=== PATIENT | female | born 1955 | race Caucasian/White ===

== ENCOUNTER 2017-01-18 14:02 | Inpatient (IN) | payer MEDICARE ==
[~2017-01-18] VITALS: Ht 167.6 cm; Wt 76.9 kg
[~2017-01-18 14:02] MED LIST: CLON0.1T PO; CYAN500L3 PO; DOCU100C PO; ESOM40CA54 PO; FEXO180T94 PO; GINS250C2 PO; HYDR-4011 PO; MELO-267 PO; OXYB15TA PO; PRAM0.129 PO; VITA400C25 PO
--- NOTE | 2017-01-18 14:53 | NUR ---
ADMISSION NOTE PATIENT TRANSPORTED TO IRU UNIT VIA WHEEL CHAIR WITH COREMAKER HELPER. PATIENT ARRIVED WITH BACK BRACE AND POLAR PACK. PATIENT VITALS TAKEN, CONSENTS SIGNED, PATIENT ORIENTED TO UNIT. ARMBANDS FROM PREVIOUS FACILITY REMOVED, IRU ARMBAND PLACED.
--- OUTSIDE RECORDS SUMMARY | 2017-01-18 15:04 | XMS REPORT | Continuity of Care Document ---
Author Author Dana Cortez Address Unknown Phone Unavailable Care Team Providers Care Stacker And Sorter Operator Name Role Phone [employer] Unavailable Unavailable Problems Problem Status Onset Date Classification Date Reported Comments Source Chronic pain syndrome (disorder) Active Problem 2013 [facility] Degeneration of lumbar intervertebral disc (disorder) Active Problem 06/30/2014 [facility] Hypertensive disorder, systemic arterial (disorder) Active Problem 06/30/2014 [facility] Fibromyositis (disorder) Active Problem 06/30/2014 [facility] History of - gastrointestinal disease (context-dependent category) Active Problem 06/30/2014 [facility] History of - hormone replacement (HRT) (context-dependent category) Active Problem 06/30/2014 [facility] Hiatal hernia (disorder) Active Problem 06/30/2014 [facility] Mixed hyperlipidemia (disorder) Active Problem 2013 [facility] Hypersomnia with sleep apnea (disorder) Active Problem [facility] 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 [facility] Persistent insomnia (disorder) Active Problem 06/30/2014 [facility] Restless legs (disorder) Active Problem 06/30/2014 [facility] Reactive depression (situational) (finding) Active Problem 06/30/2014 [facility] Medications Medication Details Route Status Patient Instructions Ordering Provider Order Date Source Valeria PO Active [facility] [place] 325 mg-10 mg oral tablet tab, PO, BID Active [facility] MS Contin 30 mg oral tablet, extended release =30 mg, 1 tab, PO, Q12H, 0 Refill(s) Active [facility] Vitamin D3 oral tablet International_Unit, tab, PO, Daily Active [facility] Slo-Niacin 500 mg oral tablet, extended release =500 mg, 1 tab, PO, QHS, # 30 tab Active [facility] clonazepam 0.5 mg oral tablet =0.5 mg, 1 tab, PO, BID , # 60 tab, 5 Refill(s) Active [facility] omeprazole 40 mg oral enteric coated capsule =40 mg, 1 cap, PO, Daily, # 30 cap Active [facility] meloxicam 15 mg oral tablet =15 mg, 1 tab, PO, Daily, # 30 tab Active [facility] Cymbalta 60 mg oral enteric coated capsule =60 mg, 1 cap, PO, Daily, (do not crush or chew), # 30 cap
</br>(do not crush or chew) Active [facility] Covaryx HS tab, PO, Daily Active [facility] Flexeril 10 mg oral tablet mg, tab, PO, Daily Active [facility] Mirapex 0.125 mg oral tablet =0.125 mg, 1 tab, PO, QHS , # 30 tab, 11 Refill(s), Pharmacy [facility], tab Active [facility] Allergies, Adverse Reactions, Alerts Immunizations Results Vital Signs Vital Sign Value Date Comments Source Cuff Size Adult Large Cuff
</br>(06/29/2014 11:09: 00) <sup> </sup> 06/29/2014 [facility] BP Site Right Arm
</br>(06/29/2014 11:09:00) <sup > </sup> 06/29/2014 [facility] Resp. Rate 16 BRMIN 2013 [facility] Heart Rate 64 bpm 06/29/2014 [facility] Systolic BP <content ID='[id number]'>134</content >/<content ID='[id number]'>80</content> mmHg 06/29 [facility] Encounters Procedures Plan of Care Social History Assessment and Plan Family History Value Date Source Advance Directives Order Name Results Value Date Source
--- OUTSIDE RECORDS SUMMARY | 2017-01-18 15:04 | XMS REPORT ---
Author Author Darling Harvey Organization [facility] Address [address] [place], [place] [address] Care Team Providers Care Chainstitch Tunnel Elastic Operator Name Role Phone Candice Darling Unavailable [phone] PROBLEMS Type Condition ICD9-CM Code DAH20-EP Code Onset Dates Condition Status SNOMED Code Problem Unspecified urinary incontinence R32 Active 462176847 Problem Personal history of other diseases of the musculoskeletal system and connective tissue Z87.39 Active 049518638 Problem Other chronic pain G89.29 Active 18826092 Assessment Encounter for consultation Z71.9 Sep, Active 797192398 Assessment Trauma and stressor-related disorder F43.9 Sep, Active 13113875 Problem Gastro-esophageal reflux disease with esophagitis K21.0 Active 013181318 Problem Anxiety disorder, unspecified F41.9 Active 476070261 Problem Trauma and stressor-related disorder F43.9 Active 86952600 Problem Other cervical disc degeneration, high cervical region M50.31 Active 03022532 Problem Other intervertebral disc degeneration, lumbosacral region M51.37 Active 22412005 Problem Major depressive disorder, single episode, severe with anxious distress F32.2 Active 067385234717 Problem Gait instability R26.81 Active 73986025 ALLERGIES Unknown Allergies SOCIAL HISTORY No smoking Hx information available PLAN OF CARE VITAL SIGNS MEDICATIONS Medication Instructions Dosage Frequency Start Date End Date Duration Status [place] 10-325 MG Orally every 6 hrs 1 tablet as needed A.M 0.5 at noon 1 tablet PM 6h Mar, Active Oxybutynin Chloride ER 15 MG Orally once a day 1 tab 24h Active Clonidine HCl 0.1 MG Orally Once a day 1 tablet at bedtime 24h Aug, 30 day(s) Active Omeprazole 20 MG Orally Once a day 1 capsule 24h Aug, 30 day(s ) Active Meloxicam 15 MG Orally Once a day 1 tablet 24h Jan, Jan, Active Trazodone HCl 50 MG Orally Once a day Half tablet at bedtime 24h Active RESULTS No Results PROCEDURES No Known procedures IMMUNIZATIONS No Known Immunizations
--- OUTSIDE RECORDS SUMMARY | 2017-01-18 15:05 | XMS REPORT | Continuity of Care Document ---
Author Author [facility] Organization [facility] Address Unknown Phone Unavailable Allergies Active Description Code Type Severity Reaction Onset Reported/Identified Relationship to Patient Clinical Status Yes LACTOSE 98824 3 INDIGESTION 12/24/2016 Medications Medication Packaging Start Date Stop Date Route Dosage Sig HYDROcodone/ACETAMINOPHEN 10-325 MG TABLET TAB 11/28/201611/28 PO ONCE * DONT RECONCILE--CHANGE PENDING EA 12/24/2016 01/16/2017 PO PRN SODIUM CHLORIDE 0.9% 10ML FLUSH SYRINGE SYR 01/16/20172017 IVP BID&0900,2100 DOCUSATE SODIUM 100MG CAPSULE CAP 01/16/2017 01/16/2018 PO BID& 0900,2100 LACTATED RINGERS 1000 ML IV SOLN BAG 01/16/2017 01/17/2017 IV PRE-OP ceFAZolin 1GM VIAL VL 01/16/2017 01/16/2017 IV PRE-OP fentaNYL 100 MCG/2ML INJ AMP 01/16/2017 01/16/2017 IV PRE-OP MIDAZOLAM 2MG/2ML INJ VL 01/16/2017 01/16/2017 IV PRE-OP fentaNYL 250 MCG/5ML INJ AMP 01/16/2017 01/16/2017 IV ONCE * Ready to Reconcile EA 01/16/2017 01/16/2017 PO ASDIR THROMBIN 5000 UNIT VIAL VL 01/16/2017 01/16/2017 TOP ONCE BACITRACIN 50,000 UNITS VIAL VL 01/16/2017 01/16/2017 IM ONCE BACITRACIN 500 UNIT/GM OINT [0.9GM U.D.] PKT 01/16/20172016 TOP ONCE SODIUM CHLORIDE PF 0.9% 10ML INJ VL 01/16/2017 01/16/2017 IVP ONCE LACTATED RINGERS 1000 ML IV SOLN BAG 01/16/2017 01/16/2017 IV ONCE SODIUM CHLORIDE 0.9% 1000ML IRRIG SOLN EA 01/16/20172016 IRR ONCE BUPIVACAINE W/ EPI 0.25% INJ [10 ML] VL 01/16/2017 01/16/2017 ID ONCE *OMEPRAZOLE 20MG CAPSULE CAP 01/16/2017 01/16/2018 PO QD&0900 *FEXOFENADINE 180MG TABLET TAB 01/16/2017 01/16/2018 PO QD& 0900 SUCCINYLCHOLINE 100MG/5ML SYRINGE [COMPOUND] DOS 01/16/2017 IVP ONCE PROPOFOL 200MG/20ML INJ VL 01/16/2017 01/16/2017 IVP ONCE ROCURONIUM 50MG/5ML INJ VL 01/16/2017 01/16/2017 IVP ONCE LIDOCAINE 2% SYRINGE [100MG/5ML] SYR 01/16/2017 01/16/2017 IVP ONCE PHENYLEPHRINE 1MG/10ML SYRINGE [COMPOUND] DOS 01/16/201701/16 IVP ONCE LACTATED RINGERS 1000 ML IV SOLN BAG 01/16/2017 01/18/2017 IV 100ML/HR ONDANSETRON 4MG TABLET TAB 01/16/2017 01/16/2018 PO [id number] METOCLOPRAMIDE 10MG TABLET TAB 01/16/2017 01/16/2018 PO [id number] HYDROcodone/ACETAMINOPHEN 7.5-325 MG TABLET TAB 01/16/2017 PO [id number] diphenhydrAMINE 25MG CAPSULE CAP 01/16/2017 01/16/2018 PO Q6HPRN diphenhydrAMINE 50MG/1ML INJ VL 01/16/2017 01/16/2018 IVP Q6HPRN BISACODYL 5MG TABLET TAB 01/16/2017 01/16/2018 PO PRN ONDANSETRON 4MG/2ML INJ VL 01/16/2017 01/16/2018 IVP [id number] MORPHINE 30 MG / 30 ML BID WRITER SYRINGE SYR 01/16/2017 01/18/2017 IV PRN METOCLOPRAMIDE 10MG/2ML INJ VL 01/16/2017 01/16/2018 IVP [id number] SODIUM CHLORIDE 0.9% 10ML FLUSH SYRINGE SYR 01/16/20172017 IVP PRN SODIUM CHLORIDE 0.9% 5ML FLUSH SYRINGE SYR 01/16/20172017 IVP PRN MAGNESIUM HYDROXIDE 2400MG/30ML SUSP EA 01/16/2017 01/16/2018 PO PRN BISACODYL 10MG SUPPOS. SUP 01/16/2017 01/16/2018 CA* PRN METHOCARBAMOL 750MG TABLET TAB 01/16/2017 01/16/2018 PO [id number] ACETAMINOPHEN 325MG TABLET TAB 01/16/2017 01/16/2018 PO Q4HPRN hydroMORPHONE 2MG/1ML INJ ML 01/16/2017 01/16/2017 IV ONCE ONDANSETRON 4MG/2ML INJ VL 01/16/2017 01/16/2017 IVP ONCE hydroMORPHONE 2MG/1ML INJ ML 01/16/2017 01/16/2017 IV ONCE ePHEDrine 20MG/2ML SYRINGE (COMPOUNDED) DOS 01/16/20172016 IVP ONCE hydroMORPHONE 2MG/1ML INJ ML 01/16/2017 01/17/2017 IV POST-OP ONDANSETRON 4MG/2ML INJ VL 01/16/2017 01/17/2017 IV POST-OP ceFAZolin 1GM VIAL VL 01/16/2017 01/16/2017 IVP Q8H&0000,0800, 1600 ceFAZolin 1GM VIAL VL 01/16/2017 01/17/2017 IVP Q8H&2000,0400, 1200 CALCIUM CARBONATE 500MG TABLET TAB 01/17/2017 01/17/2018 PO PRN CALCIUM CARBONATE 500MG TABLET TAB 01/17/2017 01/17/2017 PO ONCE CALCIUM CARBONATE 500MG TABLET TAB 01/17/2017 01/17/2017 PO ONCE MAGNESIUM SULFATE 2GM/50ML IV SOLN BAG 01/17/2017 01/17/2017 PB ONCE *OXYBUTYNIN ER 15MG TABLET 01/24/2017 01/24/2018 PO QD&0900 *MELOXICAM 15MG TABLET TAB 01/24/2017 01/24/2018 PO QD&0900 *OMEPRAZOLE 20MG CAPSULE CAP 01/24/2017 01/16/2017 PO QD&0900 *FEXOFENADINE 180MG TABLET TAB 01/24/2017 01/16/2017 PO QD& 0900 *HYDROcodone/ACETAMINOPHEN 5-325 MG TABLET TAB 01/24/201701/24 PO TIDPRN Problems Date Dx Coded Attending Type Code Diagnosis Diagnosed By 11/28/2016 [facility] PICKARD GARY DF M43.16 Spondylolisthesis, lumbar region 11/28/2016 [facility] PICK[facility] GARY DF 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 11/28/2016 [facility] PICK[facility] GARY DF M48.06 Spinal stenosis, lumbar region 11/28/2016 [facility] PICKARD GARY DF Z98.1 Arthrodesis status Procedures Code Description Performed By Performed On [id number] Fluoroscopy of Spinal Cord using Low Osm NAVI PICKARDO 11/28/2016 Results Test Result Range 883-9 - 01/16/17 10:35 ABO group [Type] in Blood A 83248-2 - 01/16/17 10:35 Rh [Type] in Blood POSITIVE 890-4 - 01/16/17 10:35 Blood group antibody screen [Presence] in Serum or Plasma NEGATIVE Hemoglobin [Mass/volume] in Blood - 01/17/17 05:10 Hemoglobin [Mass/volume] in Blood 11.2 g/dl 11.4 - 15.2 Hematocrit [Volume Fraction] of Blood by Automated count - 01/17/17 05:10 Hematocrit [Volume Fraction] of Blood by Automated count 30.7 % 34.0 - 46.0 2345-7 - 01/17/17 05:10 Glucose [Mass/volume] in Serum or Plasma 134 mg/dl 64 - 112 Urea nitrogen [Mass/volume] in Serum or Plasma 5.7 mg/dl 7.3 - 20.2 Creatinine [Mass/volume] in Serum or Plasma 0.5 mg/dl 0.5 - 0.9 Calcium [Mass/volume] in Serum or Plasma 8.12 mg/dl 8.30 - 10.60 Sodium [Moles/volume] in Serum or Plasma 129 mmol/L 135 - 151 Potassium [Moles/volume] in Serum or Plasma 3.8 mmol/L 3.5 - 5.0 Chloride [Moles/volume] in Serum or Plasma 94 mmol/L 98 - 113 Carbon dioxide, total [Moles/volume] in Venous blood 30 mmol /L 23 - 34 Magnesium [Mass/volume] in Serum or Plasma - 01/17/17 05:10 Magnesium [Mass/volume] in Serum or Plasma 1.6 mg/dl 1.8 - 2.6 Hemoglobin [Mass/volume] in Blood - 01/18/17 05:00 Hemoglobin [Mass/volume] in Blood 11.4 g/dl 11.4 - 15.2 Hematocrit [Volume Fraction] of Blood by Automated count - 01/18/17 05:00 Hematocrit [Volume Fraction] of Blood by Automated count 32.0 % 34.0 - 46.0 2345-7 - 01/18/17 05:00 Glucose [Mass/volume] in Serum or Plasma 169 mg/dl 64 - 112 Urea nitrogen [Mass/volume] in Serum or Plasma 5.0 mg/dl 7.3 - 20.2 Creatinine [Mass/volume] in Serum or Plasma 0.5 mg/dl 0.5 - 0.9 Calcium [Mass/volume] in Serum or Plasma 8.53 mg/dl 8.30 - 10.60 Sodium [Moles/volume] in Serum or Plasma 133 mmol/L 135 - 151 Potassium [Moles/volume] in Serum or Plasma 4.0 mmol/L 3.5 - 5.0 Chloride [Moles/volume] in Serum or Plasma 95 mmol/L 98 - 113 Carbon dioxide, total [Moles/volume] in Venous blood 29 mmol /L 23 - 34 Magnesium [Mass/volume] in Serum or Plasma - 01/18/17 05:00 Magnesium [Mass/volume] in Serum or Plasma 2.0 mg/dl 1.8 - 2.6 Encounters ACCT No. Visit Date/Time Discharge Status Pt. Type Provider Facility Loc./Unit Complaint [id number] 06/16/2012 00:00:00 2011 00:00:00 ABHINAV Christopher MD, [facility] EMELY
--- OUTSIDE RECORDS SUMMARY | 2017-01-18 15:05 | XMS REPORT | Continuity of Care Document ---
Author Author [facility] Organization [facility] Address Unknown Phone Unavailable Support Name Relationship Address Phone SANDIE MATAMOROS APRN Caregiver [address] [place] [address] Unavailable FEBRUARYCORRINE DO Caregiver [address] [place] [address] Unavailable JONNATHAN HARDING Next Of Kin [address] [place] [address] Insurance Providers Guarantor Giselle Harding Address [address] [place] [address] Email [email or web address] Payer Medicare Policy Number [id number] Subscriber's Name Giselle Harding Relationship 18 Self Chief Complaint and Reason for Visit Chief Complaint Psychiatric Problems Reason for Visit Suicidal ideation Delusions Paranoia Problems Active Problems Medical Problem Onset Date Status Incontinence Unknown Vomiting and diarrhea Unknown Acute Past Problems Medical Problem Onset Date Blood pressure elevated Unknown Delusions Unknown Headache Unknown Leg weakness, bilateral Unknown Paranoia Unknown Spinal stenosis of lumbar region with neurogenic claudication Unknown Suicidal ideation Unknown Medications Current Home Medications Medication Dose Units Route Directions Days Qty Instructions Start Date Clonidine Hcl 0.1 Mg Tablet 0.1 Mg Oral Twice A Day 10/02/16 Cyanocobalamin (Vitamin B-12) (Vitamin B-12) Unknown Strength Lozenge Unknown Dose Oral Daily 09/06/16 Docusate Sodium (Stool Softener) 100 Mg Capsule 100 Mg Oral Daily 10/02/16 Esomeprazole Magnesium 40 Mg Capsule.dr 40 Mg Oral Daily 10/02/16 Fexofenadine Hcl (Valeria Allergy) 180 Mg Tablet 180 Mg Oral Daily 09/06/16 Ginseng Unknown Strength Capsule Unknown Dose Oral Daily Hydrocodone/Acetaminophen (Lortab 10-325 Mg Tablet) 1 Each Tablet 1 Tab Oral Three Times A Day 09/06/16 Meloxicam 15 Mg Tablet 15 Mg Oral Daily 09/06/16 Oxybutynin Chloride (Oxybutynin Chloride Er) 15 Mg Tab.er.24 15 Mg Oral Daily 09/06/16 Pramipexole Di-Hcl (Pramipexole Dihydrochloride) 0.125 Mg Tablet 0.125 Mg Oral Bedtime 10/02/16 Vitamin E 400 Unit Capsule 400 Unit Oral Daily 09/06/16 Social History Social History Problem Response Recorded Date/Time Onset Date Status Chewing Tobacco Status No 10/02/2016 3:58pm Not Applicable Not Applicable Hx Substance Use No 10/02/2016 3:58pm Not Applicable Not Applicable Hx Alcohol Use Y OCCASIONAL 10/02/2016 3:58pm Not Applicable Not Applicable Tobacco Usage none 10/22/2015 7:28am Not Applicable Not Applicable Query Response Start Date Stop Date Smoking Status Former smoker Hospital Discharge Instructions No hospital discharge instructions. Plan of Care Discharge Date 10/02/16 11:07pm Disposition 65 TO PSYCH HOSP/UNIT Condition at Discharge Stable Prescriptions See Medication Section Referrals SANDIE MATAMOROS APRN Address: [address] [place], [place] [phone] Functional Status No functional status results. Allergies, Adverse Reactions, Alerts No known allergies. Immunizations Query Response on File Recorded Date/Time Influenza Vaccine Hx 201510/02/16 3:58pm Vital Signs Acute Vital Signs Vital Response Date/Time Temperature (Fahrenheit) 96.4 deg F (96.8 - 99.1) 10/02/2016 3:58pm Temperature (Calculated Celsius) 35.89719 degrees C (36.0 - 37.3) 10/02/2016 3:58pm Pulse Rate (adult) 76 bpm (60 - 100) 10/02/2016 3:58pm Respiratory Rate 16 breaths/min (10 - 20) 10/02/2016 3:58pm O2 Sat by Pulse Oximetry 97 % (90 - 100) 10/02/2016 3:58pm Blood Pressure 192/85 mm Hg 10/02/2016 9:05pm Height (Feet) 5 feet 10/02/2016 3:15pm Height (Inches) 5.00 inches 10/02/2016 3:15pm Weight (Kilograms) 77.100 kg 10/02/2016 3:15pm Body Mass Index (BMI) 28.0 10/02/2016 3:15pm Results Laboratory Results Test Name Result Units Flags Reference Collection Date/Time Result Date/ Time Comments Troponin I < 0.012 ng/ml 0-0.12 09/08/2016 12:45pm 09/08/2016 1:11pm Troponin values with a difference of 55% increase from orginal troponin value represent a true biological DELTA value. (%increase Calc=Orginal Troponin value, divided by subsequent Troponin value, multiplied by 100) White Blood Count 7.9 T/MM3 4.5-11.0 10/02/2016 3:40pm 10/02/2016 3: 57pm Red Blood Count 4.51 M/MM3 4.00-5.20 10/02/2016 3:40pm 10/02/2016 3: 57pm Hemoglobin 13.6 GM/DL 12-16 10/02/2016 3:40pm 10/02/2016 3:57pm Hematocrit 39.6 % 36-46 10/02/2016 3:40pm 10/02/2016 3:57pm Mean Corpuscular Volume 87.8 UM3 80-100 10/02/2016 3:40pm 10/02/2016 3: 57pm Mean Corpuscular Hemoglobin 30.2 UUG 26-34 10/02/2016 3:40pm 2015 3:57pm Mean Corpuscular Hemoglobin Concent 34.3 GM/DL 31-37 10/02/2016 3:40pm 10/02/2016 3:57pm RDW Standard Deviation 40.0 FL 36.9-50.2 10/02/2016 3:40pm 10/02/2016 3 :57pm Platelet Count 443 T/MM3 H 130-400 10/02/2016 3:40pm 10/02/2016 3:57pm Mean Platelet Volume 7.8 UM3 L 9.4-12.4 10/02/2016 3:40pm 10/02/2016 3: 57pm Neutrophils (%) (Auto) 55.0 % 33-66 10/02/2016 3:40pm 10/02/2016 3: 57pm Lymphocytes (%) (Auto) 36.7 % 23-45 10/02/2016 3:40pm 10/02/2016 3: 57pm Monocytes (%) (Auto) 5.6 % 0-9.0 10/02/2016 3:40pm 10/02/2016 3:57pm Eosinophils (%) (Auto) 2.1 % 0-4 10/02/2016 3:40pm 10/02/2016 3:57pm Basophils (%) (Auto) 0.3 % 0-2 10/02/2016 3:40pm 10/02/2016 3:57pm Immature Granulocyte % (Auto) 0.3 % 0.0-0.5 10/02/2016 3:40pm 2015 3:57pm Absolute Neutrophils (auto) 4.4 T/MM3 1.8-7.7 10/02/2016 3:40pm 2015 3:57pm Absolute Lymphocytes (auto) 2.9 T/MM3 1-4.8 10/02/2016 3:40pm 2015 3:57pm Absolute Monocytes (auto) 0.4 T/MM3 0-0.8 10/02/2016 3:40pm 10/02/2016 3:57pm Absolute Eosinophils (auto) 0.2 T/MM3 0-0.5 10/02/2016 3:40pm 2015 3:57pm Absolute Basophils (auto) 0.0 T/MM3 0-0.2 10/02/2016 3:40pm 10/02/2016 3:57pm Absolute Immature Granulocyte (auto 0.02 T/MM3 0.00-0.03 10/02/2016 3: 40pm 10/02/2016 3:57pm Icterus Index < 2 0-7 10/02/2016 3:40pm 10/02/2016 4:00pm Chemistry Specimen Hemolysis < 15 0-25 10/02/2016 3:40pm 10/02/2016 4 :00pm 0-25: Specimen Exhibited No Hemolysis. Turbidity < 20 0-20 10/02/2016 3:40pm 10/02/2016 4:00pm Sodium Level 140 MEQ/L 134-144 10/02/2016 3:40pm 10/02/2016 4:07pm Potassium Level 4.5 MEQ/L 3.6-5 10/02/2016 3:40pm 10/02/2016 4:07pm Chloride Level 97 MEQ/L L 98-107 10/02/2016 3:40pm 10/02/2016 4:07pm Carbon Dioxide Level 31 MEQ/L H 22-30 10/02/2016 3:40pm 10/02/2016 4: 07pm Anion Gap 12 MEQ/L 5-15 10/02/2016 3:40pm 10/02/2016 4:07pm Blood Urea Nitrogen 12.0 MG/DL 7-17 10/02/2016 3:40pm 10/02/2016 4: 07pm Creatinine 0.7 MG/DL 0.7-1.2 10/02/2016 3:40pm 10/02/2016 4:07pm BUN/Creatinine Ratio 17 RATIO 6-26 10/02/2016 3:40pm 10/02/2016 4:07pm Glomerular Filtration Rate Calc 85 10/02/2016 3:40pm 10/02/2016 4: 07pm Glucose Level 109 MG/DL 65-110 10/02/2016 3:40pm 10/02/2016 4:07pm Calculated Osmolality 270 MOSM/KG 261-280 10/02/2016 3:40pm 10/02/2016 4:07pm Calcium Level 9.1 MG/DL 8.4-10.2 10/02/2016 3:40pm 10/02/2016 4:07pm Acetaminophen Level < 10 UG/ML L 10-10/02/2016 3:40pm 10/02/2016 4: 07pm TOXIC <4 HR POST INGESTION: >150 MG/L; TOXIC <12 HR POST INGESTION: >50 MG/L Salicylates Level < 1.0 MG/DL L 2-20 10/02/2016 3:40pm 10/02/2016 4: 07pm Alcohol, Quantitative <10 MG/DL <10 10/02/2016 3:40pm 10/02/2016 4: 07pm Thyroid Stimulating Hormone (TSH) 1.09 MIU/L 0.47-4.68 10/02/2016 3: 40pm 10/02/2016 5:00pm Urine Collection Type CLEANCATCH-MIDSTREAM 10/02/2016 3:40pm 2015 3:59pm Urine Color YELLOW YELLOW 10/02/2016 3:40pm 10/02/2016 3:59pm Urine Turbidity CLEAR CLEAR 10/02/2016 3:40pm 10/02/2016 3:59pm Urine Specific Mc[place]ath 1.010 L 1.015-1.025 10/02/2016 3:40pm 2015 3:59pm Urine pH 6.5 5.0-8.0 10/02/2016 3:40pm 10/02/2016 3:59pm Urine Leukocyte Esterase NEGATIVE NEGATIVE 10/02/2016 3:40pm 2015 3:59pm Urine Nitrite NEGATIVE NEGATIVE 10/02/2016 3:40pm 10/02/2016 3:59pm Urine Protein NEGATIVE NEGATIVE 10/02/2016 3:40pm 10/02/2016 3:59pm Urine Glucose (UA) NEGATIVE NEGATIVE 10/02/2016 3:40pm 10/02/2016 3: 59pm Urine Ketones NEGATIVE NEGATIVE 10/02/2016 3:40pm 10/02/2016 3:59pm Urine Urobilinogen 0.2 EU/DL NORMAL 10/02/2016 3:40pm 10/02/2016 3: 59pm Urine Bilirubin NEGATIVE NEGATIVE 10/02/2016 3:40pm 10/02/2016 3: 59pm Urine Blood NEGATIVE NEGATIVE 10/02/2016 3:40pm 10/02/2016 3:59pm Urinalysis Comment MICROSCOPIC NOT IND. 10/02/2016 3:40pm 2015 3:59pm Name: GISELLE HARDING Unit #: [id number] : 1955 Sex: F Admit Date: Loc / Svc: ED Discharge Date: DIAGNOSTIC IMAGING REPORT Report #: [id number] [facility] INGR[facility] [place] Indication: ITS.REASON: Medical clearance Procedure: CHEST 1 VIEW: Encounter: Initial Comparison: None Technique: A single portable AP chest radiograph was obtained. Findings: Lungs and airways: Normal lung volumes. No focal airspace consolidation. Normal pulmonary vasculature. Pleura: No pleural effusion or pneumothorax. Heart and mediastinum: The cardiomediastinal silhouette and great vessels are within normal limits. Osseous structures and soft tissues: No acute osseous abnormality is seen. Degenerative arthrosis of the AC joints. Postoperative changes of anterior cervical discectomy and fusion. Impression: No acute cardiopulmonary process. . Procedures Procedure Status Date Provider(s) EMERGENCY DEPT VISIT Completed 09/06/16 ROUTINE VENIPUNCTURE Completed 09/08/16 METABOLIC PANEL TOTAL CA Completed 09/08/16 ASSAY OF TROPONIN QUANT Completed 09/08/16 COMPLETE CBC W/AUTO DIFF WBC Completed 09/08/16 ELECTROCARDIOGRAM TRACING Completed 09/08/16 EMERGENCY DEPT VISIT Completed 09/08/16 Encounters Encounter Location Arrival/Admit Date Discharge/Depart Date Attending Provider Departed Emergency Room [facility] 10/02/16 3:14pm 10/02/16 11: 07pm CORRINE TAVERA DO Departed Emergency Room [facility] 09/08/16 11:34am 09/08/16 2: 28pm BERNARDA READ MD Departed Emergency Room [facility] 09/06/16 2:43pm 09/06/16 4: 42pm VAHE JAMISON MD Recent Diagnosis
--- OUTSIDE RECORDS SUMMARY | 2017-01-18 15:05 | XMS REPORT ---
Author Author Zayda Maier [facility] e[employer] Address Unknown Phone Unavailable Care Team Providers Care Clinical Project Leader Name Role Phone Zayda Maier CP Unavailable Allergies No Known Allergies Problems Problem Type Condition Code Onset Dates Condition Status Problem Other intervertebral disc degeneration, lumbosacral region M51.37 Active Problem Personal history of other diseases of the musculoskeletal system and connective tissue Z87.39 Active Problem Other cervical disc degeneration, high cervical region M50.31 Active Problem Gastro-esophageal reflux disease with esophagitis K21.0 Active Problem Other chronic pain G89.29 Active Problem Unspecified urinary incontinence R32 Active Medications No Known Medications Results No Known Results Summary Purpose eClinicalWorks Submission
--- OUTSIDE RECORDS SUMMARY | 2017-01-18 15:05 | XMS REPORT ---
Author Author Zayda Maier [facility] [employer] Address Unknown Phone Unavailable Care Team Providers Care Accounting Machine Operator Name Role Phone Zayda Maier CP Unavailable [...]
--- OUTSIDE RECORDS SUMMARY | 2017-01-18 15:05 | XMS REPORT ---
Author Author Zayda Maier [facility] Address [address], [place] [id number] Care Team Providers Care Seaweed Harvester Name Role Phone Zayda Maier Unavailable [phone] PROBLEMS Type Condition ICD9-CM Code UIB31-FB Code Onset Dates Condition Status SNOMED Code Problem Gastro-esophageal reflux disease with esophagitis K21.0 Active 037450413 Problem Gait instability R26.81 Active 05107759 Problem Other cervical disc degeneration, high cervical region M50.31 Active 52066196 Problem Other chronic pain G89.29 Active 55574543 Problem Unspecified urinary incontinence R32 Active 363893393 Problem Other intervertebral disc degeneration, lumbosacral region M51.37 Active 52594366 Problem Personal history of other diseases of the musculoskeletal system and connective tissue Z87.39 Active 027316151 ALLERGIES Unknown Allergies SOCIAL HISTORY No smoking Hx information available PLAN OF CARE VITAL SIGNS MEDICATIONS Unknown Medications RESULTS No Results PROCEDURES No Known procedures IMMUNIZATIONS No Known Immunizations
--- OUTSIDE RECORDS SUMMARY | 2017-01-18 15:05 | XMS REPORT ---
Author Author Zayda Maier [facility] Address [address], [place] [address] Care Team Providers Care Art Professor Name Role Phone Zayda Maier Unavailable [phone] PROBLEMS Type Condition ICD9-CM Code [id number] Code Onset Dates Condition Status SNOMED Code Problem Gastro-esophageal reflux disease with esophagitis K21.0 Active 189734637 Problem Gait instability R26.81 Active 41872451 Problem Other cervical disc degeneration, high cervical region M50.31 Active 18160994 Problem Other chronic pain G89.29 Active 22169017 Problem Unspecified urinary incontinence R32 Active 459631554 Problem Other intervertebral disc degeneration, lumbosacral region M51.37 Active 06596595 Problem Personal history of other diseases of the musculoskeletal system and connective tissue Z87.39 Active 335432738 ALLERGIES Unknown Allergies SOCIAL HISTORY No smoking Hx information available PLAN OF CARE VITAL SIGNS MEDICATIONS Unknown Medications RESULTS No Results PROCEDURES No Known procedures IMMUNIZATIONS No Known Immunizations
--- OUTSIDE RECORDS SUMMARY | 2017-01-18 15:05 | XMS REPORT ---
Author Author Zayda Maier [employer] Address Unknown Phone Unavailable Care Team Providers Care Picker Tender Name Role Phone Zayda Maier CP Unavailable Allergies, Adverse Reactions, Alerts Substance Reaction Event Type lactose intolerance Info Not Available Non Drug Allergy Problems Problem Type Condition Code Onset Dates Condition Status Assessment Gastro-esophageal reflux disease with esophagitis K21.0 Active Assessment Other intervertebral disc degeneration, lumbosacral region M51.37 Active Assessment Unspecified urinary incontinence R32 Active Assessment Elevated blood pressure reading R03.0 Active Assessment Other chronic pain G89.29 Active Problem Other intervertebral disc degeneration, lumbosacral region M51.37 Active Problem Personal history of other diseases of the musculoskeletal system and connective tissue Z87.39 Active Problem Other cervical disc degeneration, high cervical region M50.31 Active Problem Gastro-esophageal reflux disease with esophagitis K21.0 Active Assessment Other cervical disc degeneration, high cervical region M50.31 Active Problem Other chronic pain G89.29 Active Problem Unspecified urinary incontinence R32 Active Medications Medication Code System Code Instructions Start Date End Date Status Dosage Omeprazole [facility] [address]-21 20 MG Orally Once a day Sep 11, 2016 1 capsule Clonidine HCl [facility] [address]-37 0.1 MG Orally Once a day Sep 11, 2016 1 tablet at bedtime Meloxicam [facility] [address]-03 15 MG Orally Once a day January 25, 2016 January 19, 2017 1 tablet Oxybutynin Chloride ER [facility] [address]-15 15 MG Orally once a day 1 tab [place] [facility] [address]-81 10-325 MG Orally every 6 hrs March 29, 2016 1 tablet as needed A.M 0.5 at noon 1 tablet PM Trazodone HCl [facility] [address]-50 50 MG Orally Once a day Half tablet at bedtime Procedures Procedure Coding System Code Date OFFICE VISIT, EST-LOW COMPLEXITY (15 MIN.) CPT-4 86217 Sep 11, 2016 [facility] visit Established Patient CPT-4 G0467 Sep 11, 2016 Vital Signs Date/Time: Sep 11, 2016 Temperature 98.6 F Height 67 in Weight 166.8 lbs Blood Pressure Diastolic 76 mm Hg Blood Pressure Systolic 130 mm Hg Cardiac Monitoring Heart Rate 74 /min BMI 26.12 Index Oximetry 98 % Results No Known Results Summary Purpose eClinicalWorks Submission
--- OUTSIDE RECORDS SUMMARY | 2017-01-18 15:05 | XMS REPORT ---
Author Author Zayda Maier [facility] [employer] Address Unknown Phone Unavailable Care Team Providers Care Petroleum Production Engineer Name Role Phone Zayda Maier CP Unavailable Allergies No Known Allergies Problems Problem Type Condition Code Onset Dates Condition Status Problem Other cervical disc degeneration, high cervical region M50.31 Active Problem Other intervertebral disc degeneration, lumbosacral region M51.37 Active Problem Gait instability R26.81 Active Problem Unspecified urinary incontinence R32 Active Problem Gastro-esophageal reflux disease with esophagitis K21.0 Active Problem Personal history of other diseases of the musculoskeletal system and connective tissue Z87.39 Active Problem Other chronic pain G89.29 Active Medications Medication Code System Code Instructions Start Date End Date Status Dosage Clonidine HCl [facility] [address]-09 0.1 MG Orally BID Sep 11, 2016 1 tablet at bedtime Results No Known Results Summary Purpose eClinicalWorks Submission
--- OUTSIDE RECORDS SUMMARY | 2017-01-18 15:05 | XMS REPORT ---
Author Author Zayda Maier [employer] Address Unknown Phone Unavailable Care Team Providers Care Machine Marker Name Role Phone Zayda Maier CP Unavailable Allergies, Adverse Reactions, Alerts Substance Reaction Event Type lactose intolerance Info Not Available Non Drug Allergy Problems Problem Type Condition Code Onset Dates Condition Status Assessment Other chronic pain G89.29 Active Assessment Other intervertebral disc degeneration, lumbosacral region M51.37 Active Assessment Personal history of other diseases of the musculoskeletal system and connective tissue Z87.39 Active Assessment Muscle weakness of extremity M62.81 Active Assessment Numbness of both lower extremities R20.0 Active Problem Other intervertebral disc degeneration, lumbosacral [...] Instructions Start Date End Date Status Dosage Nexium [facility] [address]-38 40 MG Orally Once a day May 21, 2016 1 capsule Pantoprazole Sodium [facility] [address]-69 40 MG Orally Once a day May 03, 2016 1 tablet Noti [facility] [address]-63 10-325 MG Orally every 6 hrs March 29, 2016 1 tablet as needed A.M 0.5 at noon 1 tablet PM Oxybutynin Chloride ER [facility] [address]-27 15 MG Orally once a day 1 tab Meloxicam [facility] [address]-43 15 MG Orally Once a day January 25, 2016 January 19, 2017 1 tablet Trazodone HCl [facility] [address]-90 50 MG Orally Once a day Half tablet at bedtime Procedures Procedure Coding System Code Date OFFICE VISIT, EST-LOW COMPLEXITY (15 MIN.) CPT-4 16367 Sep 04, 2016 [facility] visit Established Patient CPT-4 G0467 Sep 04, 2016 Vital Signs Date/Time: Sep 04, 2016 Temperature 99.9 F Height 67 in Weight 167.8 lbs Blood Pressure Diastolic 96 mm Hg Blood Pressure Systolic 170 mm Hg Cardiac Monitoring Heart Rate 91 /min BMI 26.28 Index Oximetry 97 % Results No Known Results Summary Purpose eClinicalWorks Submission
--- OUTSIDE RECORDS SUMMARY | 2017-01-18 15:05 | XMS REPORT ---
Author Author Zayda Maier [facility] Address [address], [place] [address] Care Team Providers Care Websphere Architect Name Role Phone Livier Zayda Unavailable [phone] PROBLEMS Type Condition ICD9-CM Code EMJ85-CB Code Onset Dates Condition Status SNOMED Code Problem Unspecified urinary incontinence R32 Active 023105874 Problem Personal history of other diseases of the musculoskeletal system and connective tissue Z87.39 Active 316745532 Problem Other chronic pain G89.29 Active 41280825 Problem Gastro-esophageal reflux disease with esophagitis K21.0 Active 602519651 Problem Anxiety disorder, unspecified F41.9 Active 399096279 Problem Trauma and stressor-related disorder F43.9 Active 13030318 Problem Other cervical disc degeneration, high cervical region M50.31 Active 01231997 Problem Other intervertebral disc degeneration, lumbosacral region M51.37 Active 88758360 Problem Major depressive disorder, single episode, severe with anxious distress F32.2 Active 290846723915 Problem Gait instability R26.81 Active 86234003 ALLERGIES Unknown Allergies SOCIAL HISTORY No smoking Hx information available PLAN OF CARE VITAL SIGNS MEDICATIONS Unknown Medications RESULTS No Results PROCEDURES No Known procedures IMMUNIZATIONS No Known Immunizations
--- OUTSIDE RECORDS SUMMARY | 2017-01-18 15:06 | XMS REPORT ---
Author Author Zayda Maier [employer] Address Unknown Phone Unavailable Care Team Providers Care Electrical And Instrumentation Manager Name Role Phone Zayad Maier Unavailable Allergies, Adverse Reactions, Alerts Substance Reaction Event Type lactose intolerance Info Not Available Non Drug Allergy Problems Problem Type Condition Code Onset Dates Condition Status Assessment Need for home health care Z74.2 Active Assessment Other cervical disc degeneration, high cervical region M50.31 Active Assessment Other intervertebral disc degeneration, lumbosacral region M51.37 Active Problem Other cervical disc degeneration, high cervical region M50.31 Active Problem Other intervertebral disc degeneration, lumbosacral region M51.37 Active Problem Gait instability R26.81 Active Problem Unspecified urinary incontinence R32 Active Problem Gastro-esophageal reflux disease with esophagitis K21.0 Active Problem Personal history of other diseases of the musculoskeletal system and connective tissue Z87.39 Active Problem Other chronic pain G89.29 Active Assessment Gait instability R26.81 Active Assessment High risk medication use Z79.899 Active Assessment Muscle weakness of extremity M62.81 Active Assessment Numbness of both lower extremities R20.0 Active Medications Medication Code System Code Instructions Start Date End Date Status Dosage Trazodone HCl [facility] [address]-11 50 MG Orally Once a day Half tablet at bedtime Oxybutynin Chloride ER [facility] [address]-65 15 MG Orally once a day 1 tab Meloxicam [facility] [address]-06 15 MG Orally Once a day January 25, 2016 January 19, 2017 1 tablet Clonidine HCl [facility] [address]-05 0.1 MG Orally Once a day Sep 11, 2016 1 tablet at bedtime [place] [facility] [address]-74 10-325 MG Orally every 6 hrs March 29, 2016 1 tablet as needed A.M 0.5 at noon 1 tablet PM Omeprazole [facility] [address]-33 20 MG Orally Once a day Sep 11, 2016 1 capsule Procedures Procedure Coding System Code Date OFFICE VISIT, EST-LOW COMPLEXITY (15 MIN.) CPT-4 66713 Sep 18, 2016 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
--- OUTSIDE RECORDS SUMMARY | 2017-01-18 15:06 | XMS REPORT ---
Author Author Zayda Maier [facility] eClinicalWorks Address Unknown Phone Unavailable Care Team Providers Care Metal Drawer Name Role Phone Zayda Maier CP Unavailable [...]
[2017-01-18 15:45] VITALS: Ht 167.6 cm; Wt 76.9 kg
[2017-01-18 15:46] VITALS: BP 153/72; PULSE 99; RESP 18; TEMP 98.2; O2SAT 97
[2017-01-18] MEDS ORDERED: OMEP20CA10 PO (16:00)
[2017-01-18] MEDS ORDERED: HYDR-3989 PO (16:00)
[2017-01-18] MEDS ORDERED: BISA10SU8 RECTALLY (16:04)
[2017-01-18] MEDS ORDERED: BISA5TAB12 PO (16:04)
[2017-01-18] MEDS ORDERED: CALC1TAB16 PO (16:04)
[2017-01-18] MEDS ORDERED: ACET325T51 PO (16:04)
[2017-01-18] MEDS ORDERED: MAGN400O4 PO (16:07)
[2017-01-18] MEDS ORDERED: ONDA-55 PO (16:07)
[2017-01-18] MEDS ORDERED: METO10TA3 PO (16:07)
[2017-01-18] MEDS ORDERED: HYDR-347 PO (16:07)
[2017-01-18 16:15] VITALS: PULSE 99; RESP 18; O2SAT 97
[2017-01-18] MEDS ORDERED: ACETAMINOPHEN 325 MG TABLET PO PRN (18:15)
[2017-01-18] MEDS ORDERED: BISACODYL 5 MG E.C. TABLET PO PRN (18:15)
[2017-01-18] MEDS ORDERED: PRN ORDERS MC (18:15)
[2017-01-18] MEDS ORDERED: CALCIUM CARBONATE 500mg Chewable TAB PO PRN (18:30)
[2017-01-18] MEDS: BISACODYL 10 MG SUPPOSITORY RECTALLY PRN (18:33)
--- NOTE | 2017-01-18 20:15 | NUR ---
SHIFT SUMMARY PATIENT ALERT AND ORIENTED X 3. C/O PAIN TO BACK AND L LEG, PRN PAIN MEDICATION GIVEN AND POLAR PACK IN USE. PATIENT REPORTED PAIN RELIEF. PATIENT WORE BACK BRACE WHEN OUT OF BED. CONTINENT OF URINE TODAY. REPORTED NO BM OR FLATUS SINCE SURGERY, MILD NAUSEA AND DECREASED APPETITE REPORTED. SUPPOSITORY GIVEN. PATIENT REPORTED FLATUS AT END OF SHIFT. WILL CONT TO MONITOR.
[2017-01-18] MEDS ORDERED: DOCUSATE SODIUM 100 MG CAPSULE PO SCH (21:00)
[2017-01-18 21:44] VITALS: BP 156/81; PULSE 102; RESP 16; TEMP 99.1; O2SAT 98
[2017-01-18] MEDS: DOCUSATE SODIUM 100 MG CAPSULE PO SCH (23:44)
[2017-01-19] MEDS: OMEPRAZOLE 20 MG CAPSULE PO SCH (05:54)
[2017-01-19 06:09] LABS: BASOPHILS % (AUTO) 0.2 % (0-2); EOSINOPHILS # (AUTO) 0.1 T/MM3 (0-0.5); EOSINOPHILS % (AUTO) 0.8 % (0-4); HCT - HEMATOCRIT 31.9 % (36-46); HGB - HEMOGLOBIN 10.8 GM/DL (12-16); IMMATURE GRANULOCYTE # (AUTO) 0.05 T/MM3 (0.00-0.03); IMMATURE GRANULOCYTE % (AUTO) 0.4 % (0.0-0.5); LYMPHOCYTES # (AUTO) 1.9 T/MM3 (1-4.8); LYMPHOCYTES % (AUTO) 15.8 % (23-45); MEAN CORPUSCULAR HGB 30.9 UUG (26-34); MEAN CORPUSCULAR HGB CONC(MCHC 33.9 GM/DL (31-37); MEAN CORPUSCULAR VOLUME 91.1 UM3 (80-100); MEAN PLATELET VOLUME 9.1 UM3 (9.4-12.4); MONOCYTES # (AUTO) 1.1 T/MM3 (0-0.8); MONOCYTES % (AUTO) 9.1 % (0-9.0); NEUTROPHILS % (AUTO) 73.7 % (33-66); WBC - WHITE BLOOD COUNT 12.2 T/MM3 (4.5-11.0)
[2017-01-19 06:21] LABS: ANION GAP 9 MEQ/L (5-15); BUN/CREATININE RATIO 12 RATIO (6-26); CALCIUM 8.4 MG/DL (8.4-10.2); CHLORIDE 97 MEQ/L (98-107); CO2 - CARBON DIOXIDE 32 MEQ/L (22-30); CREATININE 0.5 MG/DL (0.7-1.2); GLOMERULAR FILTRATION RATE 125; GLUCOSE 118 MG/DL (65-110); POTASSIUM 4.2 MEQ/L (3.6-5); SODIUM 138 MEQ/L (134-144)
--- NOTE | 2017-01-19 07:25 | NUR ---
Summary Pt has had multiple trips to the [facility] last night. Pt reports lots of flatus. Staff reports smear of stool. Pt complaint of back pain managed with 15mg [place] x3 through the shift. Pt ambulated steady with FWW back brace and GB, standby assistance. Pt with therapy at this time
[2017-01-19] MEDS: FEXOFENADINE 180 MG TABLET PO SCH (08:46)
[2017-01-19] MEDS: DOCUSATE SODIUM 100 MG CAPSULE PO SCH ×2 (08:47→22:10)
[2017-01-19] MEDS: OXYBUTYNIN XL 5 MG TABLET PO SCH (08:47)
[2017-01-19 08:59] VITALS: BP 158/75; PULSE 99; RESP 18; TEMP 98.4; O2SAT 95
--- NOTE | 2017-01-19 12:36 | CONSPD ---
WALLY KERR CONTRACT ADMIN 01/19/17 1211: Consultation Info Date DATE: 01/19/17 TIME: 11:53 Date of Consultation: Jan 19, 2017 Attending Physician: Dr. Turner Reason for Consultation: Mangement of medical conditions, including STIVEN, GERD, HTN et al. HPI - Adult Date DATE: 01/19/17 TIME: 11:53 General Chief Complaint: S/P lumbar lami History of Present Illness Giselle is a pleasant 61 yo WF who follows with Zayda Maier APRN chronically. She has a known history of chronic back pain, and underwent a lumbar lami with instrumentation and fusion in 2004. Unfortunately, her symptoms recurred and worsened, and she required elective revision. She was admitted to [facility], and underwent the following on by Dr. Ceballos: a) L4 reexploration; Exploration of spinal fusion b) L3 Plascencia procedure (complete facetectomies and pars resection) c) L2 laminectomy d) explantation of hardware, and extension posterior lumbar spinal fusion from L3-S1 with autologous morcellated local bone and BMP impregnated infused sponges with extension of instrumentation. She was transferred to [facility] for further therapy on 01/18/17. A medical management consult was requested from our service. Past Medical History Past Medical History GERD Urinary incontinence Depression with anxiety Hiatal hernia STIVEN Hx Drug Dependency HTN Surgical History Patient's Surgical History: Appy GB Hysterectomy Cervical spine fusion 2016 Lumbar Lami 2004 Mastoid removal Lumbar resection, 12/2016 (Dr. Ceballos) Current Medications Home Meds Reported Medications Ondansetron HCl (Ondansetron HCl) 4 Mg Tablet, 4 MG PO Q6HR Y for NAUSEA 01/18/17 Magnesium Hydroxide (Milk of Magnesia) 400 Mg/5 Ml Oral.susp, 30 ML PO DAILY Y for CONSTIPATION 01/18/17 Metoclopramide HCl (Metoclopramide HCl) 10 Mg Tablet, 10 MG PO Q6HR Y for NAUSEA &/OR VOMITING 01/18/17 Hydrocodone/Acetaminophen ([place] 7.5-325 Tablet) 7.5-325 Tablet, 1-2 TAB PO Q4H Y for PAIN 01/18/17 Calcium Carbonate (Calcium Carbonate) 500 Mg Tablet, 500 MG PO PRN 01/18/17 Bisacodyl (Bisacodyl) 5 Mg Tablet.dr, 5 MG PO DAILY Y for CONSTIPATION 01/18/17 Bisacodyl (Bisacodyl) 10 Mg Supp.rect, 10 MG RECTALLY DAILY Y for CONSTIPATION 01/18/17 Acetaminophen (Acetaminophen) 325 Mg Tablet, 650 MG PO Q4H Y for PAIN 01/18/17 Omeprazole (Omeprazole) 20 Mg Capsule.dr, 20 MG PO DAILY 01/18/17 Docusate Sodium (Stool Softener) 100 Mg Capsule, 100 MG PO BID 10/02/16 Fexofenadine HCl (Valeria Allergy) 180 Mg Tablet, 180 MG PO DAILY 09/06/16 Oxybutynin Chloride (Oxybutynin Chloride ER) 15 Mg Tab.er.24, 15 MG PO DAILY 09/06/16 Allergies: Coded Allergies: No Known Allergies (Unverified , 10/22/15) Family History Family History: Stroke, HTN, DM2 F- Dec. 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 No rectal or urethral lack of sensation. No new incontinence or incomplete bladder emptying per pt. Some numbness in left leg, ongoing- not new. "New Pain"- "Healing pain". better overall. Cardiovascular DENIES: chest pain, dyspnea on exertion, murmur Rhythm/Rate: DENIES: tachycardia Vascular: DENIES: pedal edema Pulmonary Respiratory: DENIES: cough, dyspnea, pleuritic chest pain GI Upper Abdomen: food intolerances, heartburn/indigestion, nausea, DENIES: pain, vomiting Lower Abdomen: constipation Comments Decreased appetite post op. Bowel moving slowly. General: other (Denies urinary retention. ), DENIES: burning, dysuria, urgency Musculoskeletal General: other (Left LE numbness, a bit more than pre-op. ), tenderness, DENIES : edema Lumbar: pain Neurological General: change in strength, DENIES: headache, seizures All Other Systems All Other Systems: Reviewed (remainder of 10-point ROS Neg.) Physical Exam General General Nourishment: well nourished, well developed, apparent age General Body Habitus: well groomed Vital Signs Vital Signs Date Time Temp Pulse Resp B/P Pulse Ox O2 Delivery O2 Flow Rate FiO2 01/19/17 08:59 98.4 99 18 158/75 95 Room Air Height (Feet): 5 Height (Inches): 6.00 Eyes Brief: FOUND: EOMI, PERRL, NOT FOUND: foreign body, scleral icterus ENMT Brief: FOUND: mucosa moist Neck Brief: FOUND: midline, tenderness, NOT FOUND: JVD, nuchal rigidity, spasm Respiratory Brief: FOUND: clear all espitia, equal bilaterally, symmetrical, NOT FOUND: rales, tenderness, wheezes Comments Diminished in bases. No cough or wheezes. Cardiovascular (brief) Cardiac Brief: FOUND: regular rate, regular rhythm, NOT FOUND: murmur, pedal edema, peripheral edema Abdomen (brief) Abdominal Brief: FOUND: BS normo active x4 (Present, but slow), distended ( Mildly distended. ), soft, NOT FOUND: tender Musculoskeletal (brief) Musculoskeletal Brief: FOUND: loss of motion (LE weakness due to recent L- Spine surgery. Gait is not assessed. Up with PT/OT. ) Integumentary (brief) Integumentary Brief: FOUND: dry, pink, warm Neurologic RN Documented GCS Eye Opening: Verbal: Motor: Total: Psychiatric (brief) FOUND: alert, attentive, normal affect, oriented Laboratory Laboratory Tests Test 01/19/17 05:34 White Blood Count 12.2T/MM3 Red Blood Count 3.50M/MM3 Hemoglobin 10.8GM/DL Hematocrit 31.9% Mean Corpuscular Volume 91.1UM3 Mean Corpuscular Hemoglobin 30.9UUG Mean Corpuscular Hemoglobin Concent 33.9GM/DL RDW Standard Deviation 40.9FL Platelet Count 326T/MM3 Mean Platelet Volume 9.1UM3 Immature Granulocyte % (Auto) 0.4% Neutrophils (%) (Auto) 73.7% Lymphocytes (%) (Auto) 15.8% Monocytes (%) (Auto) 9.1% Eosinophils (%) (Auto) 0.8% Basophils (%) (Auto) 0.2% Absolute Immature Granulocyte (auto 0.05T/MM3 Absolute Neutrophils (auto) 9.0T/MM3 Absolute Lymphocytes (auto) 1.9T/MM3 Absolute Monocytes (auto) 1.1T/MM3 Absolute Eosinophils (auto) 0.1T/MM3 Absolute Basophils (auto) 0.0T/MM3 Turbidity < 20 Sodium Level 138MEQ/L Potassium Level 4.2MEQ/L Chloride Level 97MEQ/L Carbon Dioxide Level 32MEQ/L Anion Gap 9MEQ/L Blood Urea Nitrogen 6.0MG/DL Creatinine 0.5MG/DL Glomerular Filtration Rate Calc 125 BUN/Creatinine Ratio 12RATIO Glucose Level 118MG/DL Calculated Osmolality 265MOSM/KG Calcium Level 8.4MG/DL Icterus Index < 2 Chemistry Specimen Hemolysis < 15 Radiology CXR 12/20- normal. Impression/Recommendation Problems: (1) S/P lumbar laminectomy Assessment & Plan: She was admitted to [facility], and underwent the following on 01/16/[address] Ceballos: a) L4 reexploration; Exploration of spinal fusion b) L3 Plascencia procedure (complete facetectomies and pars resection) c) L2 laminectomy d) explantation of hardware, and extension posterior lumbar spinal fusion from L3-S1 with autologous morcellated local bone and BMP impregnated infused sponges with extension of instrumentation. Stitches to come out 2 weeks post op. To Follow up With Dr. Ceballos in 6-8 weeks- will need Cervical xrays and Lumbar spine x-ray series. (2) HTN (hypertension) Status: Chronic Qualifiers: Hypertension type: essential hypertension Qualified Codes: I10 - Essential (primary) hypertension (3) GERD (gastroesophageal reflux disease) Status: Chronic Qualifiers: Esophagitis presence: esophagitis presence not specified Qualified Codes: K21.9 - Gastro-esophageal reflux disease without esophagitis (4) Urinary incontinence Status: Chronic Qualifiers: Urinary Incontinence type: unspecified incontinence Qualified Codes: R32 - Unspecified urinary incontinence (5) Hyperglycemia (6) STIVEN (obstructive sleep apnea) Status: Chronic (7) H/O drug dependence Status: Resolved (8) Seasonal allergies Status: Chronic Qualifiers: Allergic rhinitis trigger: unspecified Qualified Codes: J30.2 - Other seasonal allergic rhinitis (9) Post-operative nausea and vomiting Status: Acute Impression 01/19/17- Josh/Junior *s/p Complicated Lumbar Lami Revision 01/16/17- PT/OT rehab per IRU team/direction. Terry/sutures need to come out in 2 weeks post op. Monitor bowels, bladder. Bladder scan. Scheduled and PRN laxatives. Strict instructions on reportable sx given to patient and she expressed understanding. *HTN- Consistent during this stay and stay at [facility]. Add low lose Lisinopril. Will try to avoid diuretics given the fact she has incontinence issues already. Monitor BP and kidney function *Mild leukocytosis, low grade fever- Check UA, start IS. Encourage activity. *Hyperglycemia- No prior hx of DMs. Check A1c. Monitor BID BG checks. *STIVEN- Monitor. May need further assessment. *Urinary incontinence, chronic- Continue Oxybutynin. Monitor bladder scan. *Mild post operative ileus- ADAT, soft diet. Monitor BM. Continue both scheduled and PRN laxatives. If she does not improve adequate function, we could consider adding scheduled dulcolax. *GERD- continue PPI *Chronic pain/ Hx of drug dependence- Minimize narcotics when possible. Consider adding Gabapentin in the future if ongoing neuropathic type pain. D/W pt re: symptoms to report, etc. *DVT px- SCDs. Consider adding lovenox in the near future. I did review the records from [facility] during this documentation. Past records at [facility] also reviewed. Thank you for the consult- we will follow with you. GLENN PACHECO MD 01/19/172033: Past Medical History Current Medications Home Meds Reported Medications Ondansetron HCl (Ondansetron HCl) 4 Mg Tablet, 4 MG PO Q6HR Y for NAUSEA 01/18/17 Magnesium Hydroxide (Milk of Magnesia) 400 Mg/5 Ml Oral.susp, 30 ML PO DAILY Y for CONSTIPATION 01/18/17 Metoclopramide HCl (Metoclopramide HCl) 10 Mg Tablet, 10 MG PO Q6HR Y for NAUSEA &/OR VOMITING 01/18/17 Hydrocodone/Acetaminophen ([place] 7.5-325 Tablet) 7.5-325 Tablet, 1-2 TAB PO Q4H Y for PAIN 01/18/17 Calcium Carbonate (Calcium Carbonate) 500 Mg Tablet, 500 MG PO PRN 01/18/17 Bisacodyl (Bisacodyl) 5 Mg Tablet.dr, 5 MG PO DAILY Y for CONSTIPATION 01/18/17 Bisacodyl (Bisacodyl) 10 Mg Supp.rect, 10 MG RECTALLY DAILY Y for CONSTIPATION 01/18/17 Acetaminophen (Acetaminophen) 325 Mg Tablet, 650 MG PO Q4H Y for PAIN 01/18/17 Omeprazole (Omeprazole) 20 Mg Capsule.dr, 20 MG PO DAILY 01/18/17 Docusate Sodium (Stool Softener) 100 Mg Capsule, 100 MG PO BID 10/02/16 Fexofenadine HCl (Valeria Allergy) 180 Mg Tablet, 180 MG PO DAILY 09/06/16 Oxybutynin Chloride (Oxybutynin Chloride ER) 15 Mg Tab.er.24, 15 MG PO DAILY 09/06/16 Allergies: Coded Allergies: No Known Allergies (Unverified , 10/22/15) Impression/Recommendation Impression 01/19/2017-I reviewed this chart, the patient history, and the CONTRACT ADMIN's/PA's documented findings as above. We discussed and formulated the assessment and plan as above with the additions below.-Dr. Pacheco I have examined the patient independently of my nurse practitioner. Patient is seen this evening sitting up at the side of her bed. She complains of cramping pain in her legs. She states that it's been present since surgery. She denies any pain elsewhere. She denies any headache or chest pain. She denies any shortness of breath. She states she does have sleep apnea but does not have a CPAP yet. She has not been wearing oxygen at night. She states she was able to eat solid foods for the first time today. She states she ate too fast and felt a little nauseated but had no vomiting. She has not had a good bowel movement since surgery. She is going to get a Dulcolax suppository tonight. She denies any dysuria or frequency. On exam she is alert and in mild distress secondary to pain. Chest is clear to auscultation. Cardiovascular reveals a regular rate and rhythm. Abdomen is soft and nontender with hypoactive bowel sounds. No tenderness. Extremities are free of edema. Regarding leg pains, will start Neurontin 100 mg 3 times a day. The nocturnal wrist ordered Flexeril and a magnesium level for tomorrow morning. Regarding history of obstructive sleep apnea, will check overnight oximetry on room air. We'll see if the patient needs oxygen versus CPAP while she is here in the hospital. Regarding mildly leukocytosis, urinalysis shows no signs of infection. Other than the above additions I have reviewed the consultation above and agree. Thank you for allowing us to assist in the care of your patient. WALLY KERR CONTRACT ADMIN Jan 19, 2017 12:11 GLENN PACHECO MD Jan 19, 2017 20:34
[2017-01-19] MEDS: LISINOPRIL 10 MG TABLET PO SCH (13:45)
--- NOTE | 2017-01-19 14:10 | HPPDOC ---
HPI Date DATE: 01/19/17 TIME: 14:06 General Chief Complaint: S/P lumbar lami History of Present Illness 1-year-old female with weakness and back pain status post surgery. Patient had to have revision of previous surgery, including a laminectomy, fusion, and other exploration of the spine on 01/16/2017. She is unable to care for her own ADLs due to weakness and pain, requires physical therapy and occupational therapy to restrengthen, improve stamina, as well as improve stability. She is requesting and is interested in 3 hour daily physical therapy occupational therapy program and is going to complete this. Past Medical History Past Medical History GERD Urinary incontinence Depression with anxiety Hiatal hernia STIVEN Hx Drug Dependency HTN Surgical History Patient's Surgical History: Appy GB Hysterectomy Cervical spine fusion 2016 Lumbar Lami 2005 Mastoid removal Lumbar resection, 12/2016 (Dr. Ceballos) Current Medications Home Meds Reported Medications Ondansetron HCl (Ondansetron HCl) 4 Mg Tablet, 4 MG PO Q6HR Y for NAUSEA 01/18/17 Magnesium Hydroxide (Milk of Magnesia) 400 Mg/5 Ml Oral.susp, 30 ML PO DAILY Y for CONSTIPATION 01/18/17 Metoclopramide HCl (Metoclopramide HCl) 10 Mg Tablet, 10 MG PO Q6HR Y for NAUSEA &/OR VOMITING 01/18/17 Hydrocodone/Acetaminophen ([place] 7.5-325 Tablet) 7.5-325 Tablet, 1-2 TAB PO Q4H Y for PAIN 01/18/17 Calcium Carbonate (Calcium Carbonate) 500 Mg Tablet, 500 MG PO PRN 01/18/17 Bisacodyl (Bisacodyl) 5 Mg Tablet.dr, 5 MG PO DAILY Y for CONSTIPATION 01/18/17 Bisacodyl (Bisacodyl) 10 Mg Supp.rect, 10 MG RECTALLY DAILY Y for CONSTIPATION 01/18/17 Acetaminophen (Acetaminophen) 325 Mg Tablet, 650 MG PO Q4H Y for PAIN 01/18/17 Omeprazole (Omeprazole) 20 Mg Capsule.dr, 20 MG PO DAILY 01/18/17 Docusate Sodium (Stool Softener) 100 Mg Capsule, 100 MG PO BID 10/02/16 Fexofenadine HCl (Valeria Allergy) 180 Mg Tablet, 180 MG PO DAILY 09/06/16 Oxybutynin Chloride (Oxybutynin Chloride ER) 15 Mg Tab.er.24, 15 MG PO DAILY 09/06/16 Allergies: Coded Allergies: No Known Allergies (Unverified , 10/22/15) Family History Family History: Stroke, HTN, DM2 F- Dec. 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 Review of Systems Musculoskeletal General: see HPI Neurological General: see HPI All Other Systems All Other Systems: Reviewed Physical Exam General General Nourishment: well nourished, well developed, adult Vital Signs Vital Signs Date Time Temp Pulse Resp B/P Pulse Ox O2 Delivery O2 Flow Rate FiO2 01/19/17 08:59 98.4 99 18 158/75 95 Room Air Height (Feet): 5 Height (Inches): 6.00 Telemetry Rhythm: Sinus Rhythm Eyes Brief: FOUND: EOMI, PERRL Neck Brief: NOT FOUND: adenopathy, carotid bruits, thyromegaly Respiratory Brief: FOUND: clear all espitia, equal bilaterally Cardiovascular (brief) Cardiac Brief: FOUND: regular rate, regular rhythm Capillary Refill: <2 sec Abdomen (brief) Abdominal Brief: FOUND: BS normo active x4, soft, NOT FOUND: tender Musculoskeletal (brief) Musculoskeletal Brief: FOUND: tenderness Comments Paraspinal muscles as well as lumbar spine incisional area Neurologic (brief) Neurological Brief: FOUND: cranial 2-12 intact, motor, sensory Neurologic RN Documented GCS Eye Opening: Verbal: Motor: Total: Laboratory Laboratory Tests Test 01/19/17 05:34 White Blood Count 12.2T/MM3 Red Blood Count 3.50M/MM3 Hemoglobin 10.8GM/DL Hematocrit 31.9% Mean Corpuscular Volume 91.1UM3 Mean Corpuscular Hemoglobin 30.9UUG Mean Corpuscular Hemoglobin Concent 33.9GM/DL RDW Standard Deviation 40.9FL Platelet Count 326T/MM3 Mean Platelet Volume 9.1UM3 Immature Granulocyte % (Auto) 0.4% Neutrophils (%) (Auto) 73.7% Lymphocytes (%) (Auto) 15.8% Monocytes (%) (Auto) 9.1% Eosinophils (%) (Auto) 0.8% Basophils (%) (Auto) 0.2% Absolute Immature Granulocyte (auto 0.05T/MM3 Absolute Neutrophils (auto) 9.0T/MM3 Absolute Lymphocytes (auto) 1.9T/MM3 Absolute Monocytes (auto) 1.1T/MM3 Absolute Eosinophils (auto) 0.1T/MM3 Absolute Basophils (auto) 0.0T/MM3 Turbidity < 20 Sodium Level 138MEQ/L Potassium Level 4.2MEQ/L Chloride Level 97MEQ/L Carbon Dioxide Level 32MEQ/L Anion Gap 9MEQ/L Blood Urea Nitrogen 6.0MG/DL Creatinine 0.5MG/DL Glomerular Filtration Rate Calc 125 BUN/Creatinine Ratio 12RATIO Glucose Level 118MG/DL Calculated Osmolality 265MOSM/KG Calcium Level 8.4MG/DL Icterus Index < 2 Chemistry Specimen Hemolysis < 15 Assessment & Plan Problems: (1) Myopathy Assessment & Plan: PT/OT consult, care plan to be developed. Plan to Center on lumbar neuropathy and myopathy (2) S/P lumbar laminectomy Assessment & Plan: PT/OT to work with patient increase strength, stability, stamina. (3) Hyperglycemia Assessment & Plan: Medical management DVT Prophylaxis: SCD'S Code Status Full Code Interventions to Obtain Goals PT Treatment Plan: Therapeutic Exercise, Gait Training, Functional Activities , Patient/Family Education, Balance/Proprioception OT Treatment Plan: ADL's (basic care), Ther. Exercise for ADL's Hospital Course Summary Disclaimer The hospital course summary below is not to be considered part of the above Progress Note. BERNARDA READ MD Jan 19, 2017 14:10
--- NOTE | 2017-01-19 14:40 | IRU24PDOC ---
24 Hour Post Admission Eval Relevant Changes Relevant Changes: No I have reviewed the patient's information and concur with the finding and results of the pre-admission screen. Certification I certify the patient for rehabilitation. Patient Condition Prior Medical Conditions: (1) Myopathy Additional Information: PT/OT consult, care plan to be developed. 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 (3) Hyperglycemia Additional Information: Medical management Current Medical Conditions: (1) Myopathy Additional Information: PT/OT consult, care plan to be developed. 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 (3) Hyperglycemia Additional Information: Medical management Prior Functional Condition Lives With: Alone Residence Type: Private home/apartment Assistive Devices: Front Wheeled Walker Prior Functional Status: Indep. at home or school Current Functional Status Patient Requirements * Patient has been determined to have significant functional limitations requiring at least two therapy disciplines. * Rehabilitation medical practitioner will provide admission approval, assessment and oversight and program coordination at least daily. * Intensive rehabilitative nursing services on site and available 24 hours a day. * The treatment plan will be developed within 24 hours of admission. * Interdisciplinary and goal oriented treatment by professional nursing, group social worker, and rehabilitation therapist. * Interdisciplinary team meeting weekly inclusive of ongoing comprehensive discharge planning. First team meeting by day seven. Weekly meetings to follow. * Rehab Physician is the team meeting leader. * Pharmacy and diagnostic services will be available. * Ongoing comprehensive rehab program with at least 2 disciplines and greater than or equal to 3 hours a day, 5 days a week. Limitations require: mobility impairment, ADL impairment Physical Therapy Minutes: 90 Occupational Therapy Minutes: 90 Therapy The patient is to receive therapy at least 5 days a week. PT Treatment Plan: Therapeutic Exercise, Gait Training, Functional Activities , Patient/Family Education, Balance/Proprioception Treatment Plan Frequency: five times per week Treatment Plan Duration: two weeks Plan of Care Comment: 6x/week for first week, 5x/week for following weeks OT Treatment Plan: ADL's (basic care), Ther. Exercise for ADL's OT Treatment Plan Frequency: five times per week OT Treatment Plan Duration: two weeks ROM Comment: B/L LE WNL See OT for UEs. Muscle Weakness Location: Left Lower Extremity, Right Lower Extremity Complication/Comorbidities Patient Complication Risk: (1) Myopathy Comments: PT/OT consult, care plan to be developed. 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 (3) Hyperglycemia Comments: Medical management Impact on Functional Outcomes Patient should return to presurgical function with PT and OT involvement Barriers to Discharge: weakness, balance, pain control, medical stability Plan to Avoid Complications Plan to Avoid Complications The patient cannot receive this care in a lesser intensive setting such as Alf or Outpatient Therapy due to the patient requiring the following post op, hyperglycemia The patient requires oversight by a rehabilitation physician to manage their rehabilitation treatment plan and the multidisciplinary approach to care that can only be provided in an IRF and requires a multidisciplinary approach to care , provided by professional PTs, OTs, STs, dieticians, RTs, rehabilitation nurses and is not available in lesser levels of care. The frequency and duration for therapy, as recommended by the professional Rehabilitation therapists, meet the patient's initial rehabilitation treatment plan needs and will be further evaluated on a weekly basis for progress and/or changes needed. BERNARDA READ MD Jan 19, 2017 14:40
[2017-01-19] MEDS: MILK OF MAGNESIA 30 ML SUSP PO PRN (14:56)
[2017-01-19 15:22] LABS: BLOOD, URINE NEGATIVE (NEGATIVE); COLOR,URINE YELLOW (YELLOW); LEUKOCYTE ESTERASE ,URINE NEGATIVE (NEGATIVE); NITRITE,URINE NEGATIVE (NEGATIVE); UROBILINOGEN,URINE 0.2 EU/DL (NORMAL)
[2017-01-19 16:21] VITALS: BP 134/69; PULSE 94; RESP 20; TEMP 98.2; O2SAT 98
--- NOTE | 2017-01-19 17:42 | NUR ---
summary pt alert and oriented x3. pleasant and cooperative. able to make needs known. transfers with standby assist w/gait belt and walker. gave norco 7.5mg 2 tabs at 1031 and at 1445. pt able to eat solid food for lunch and supper. has had no complaints of nausea. Gave MOM at 1456 per her request. wears back brace when up and able to put it on herself. no concerns at this time.
[2017-01-19] MEDS: BISACODYL 10 MG SUPPOSITORY RECTALLY PRN (20:20)
[2017-01-19] MEDS: CYCLOBENZAPRINE 5 MG TABLET PO PRN (20:28)
[2017-01-19 21:38] VITALS: BP 133/73; PULSE 100; RESP 18; TEMP 99.3; O2SAT 98
[2017-01-19] MEDS: GABAPENTIN 100 MG CAPSULE PO SCH (22:09)
[2017-01-19 23:11] VITALS: O2SAT 94
[2017-01-20] VITALS (7 sets, daily range): BP systolic 113–128; BP diastolic 62–65; PULSE 81–92; RESP 16–18; TEMP 98–99.2; O2SAT 91–98
--- NOTE | 2017-01-20 03:29 | NUR ---
Chart Check 24 hour chart check completed
[2017-01-20] MEDS: OMEPRAZOLE 20 MG CAPSULE PO SCH (05:06)
--- NOTE | 2017-01-20 05:34 | NUR ---
Summary Pt has had pain to leg muscle managed with 15mg Meredith and 5mg Flexeril. Pt states she has slept well, but still has pain in her thighs from walking with therapy. Pt had a PRN suppository Dulcolax last night but has not yet passed stool. Miralax to be given this morning, next shift. Pt is awake sitting up in bed at this time with a jello snack. BS are active and pt reports flatus.
[2017-01-20 05:41] LABS: BASOPHILS % (AUTO) 0.1 % (0-2); EOSINOPHILS # (AUTO) 0.1 T/MM3 (0-0.5); EOSINOPHILS % (AUTO) 1.5 % (0-4); HCT - HEMATOCRIT 28.2 % (36-46); HGB - HEMOGLOBIN 9.4 GM/DL (12-16); IMMATURE GRANULOCYTE # (AUTO) 0.02 T/MM3 (0.00-0.03); IMMATURE GRANULOCYTE % (AUTO) 0.2 % (0.0-0.5); LYMPHOCYTES # (AUTO) 1.9 T/MM3 (1-4.8); MEAN CORPUSCULAR HGB 30.3 UUG (26-34); MEAN CORPUSCULAR HGB CONC(MCHC 33.3 GM/DL (31-37); MEAN PLATELET VOLUME 8.1 UM3 (9.4-12.4); MONOCYTES # (AUTO) 0.7 T/MM3 (0-0.8); MONOCYTES % (AUTO) 7.9 % (0-9.0); NEUTROPHILS #(AUTO)-ABSOLUTE 6.6 T/MM3 (1.8-7.7); NEUTROPHILS % (AUTO) 70.3 % (33-66); WBC - WHITE BLOOD COUNT 9.4 T/MM3 (4.5-11.0)
[2017-01-20 05:49] LABS: MAGNESIUM 1.9 MG/DL (1.6-2.3)
[2017-01-20 05:50] LABS: ANION GAP 8 MEQ/L (5-15); BUN/CREATININE RATIO 13 RATIO (6-26); CALCIUM 8.3 MG/DL (8.4-10.2); CHLORIDE 95 MEQ/L (98-107); CO2 - CARBON DIOXIDE 31 MEQ/L (22-30); CREATININE 0.6 MG/DL (0.7-1.2); GLOMERULAR FILTRATION RATE 101; GLUCOSE 109 MG/DL (65-110); POTASSIUM 3.6 MEQ/L (3.6-5); SODIUM 134 MEQ/L (134-144)
[2017-01-20 06:18] LABS: HEMOGLOBIN A1C 5.5 % (6.1-7.9)
[2017-01-20] MEDS: FEXOFENADINE 180 MG TABLET PO SCH (08:36)
[2017-01-20] MEDS: DOCUSATE SODIUM 100 MG CAPSULE PO SCH ×2 (08:37→20:40)
[2017-01-20] MEDS: OXYBUTYNIN XL 5 MG TABLET PO SCH (08:37)
[2017-01-20] MEDS: GABAPENTIN 100 MG CAPSULE PO SCH ×3 (08:38→20:40)
[2017-01-20] MEDS: LISINOPRIL 10 MG TABLET PO SCH (08:39)
[2017-01-20] MEDS ORDERED: POLYETHYL.GLYCOL 3350 PACKET 17gm PO SCH (09:00)
--- NOTE | 2017-01-20 11:07 | PNPDOC ---
KYM DHALIWAL 01/20/17 1100: Subjective Date DATE: 01/20/17 TIME: 10:57 Subjective Giselle is seen this morning in follow up for her recent back surgery and spinal stenosis. She is seen while getting ready for her day and has showered and put on make up and looks very. She denies any complaints or concerns including no chest pain, shortness of breath, abdominal pain, nausea, vomiting or dysuria. She does admit to feeling constipated and states that she still has not had a BM despite multiple medications for bowel motivation. Discussed options and she would like mag of citrate today. Admission labs reviewed and unremarkable. On exam, she is sitting on the edge of her bed, putting her socks on. She is pleasant, alert and orientated x 3. Cardiac exam reveals regular rate and rhythm and lungs are clear to auscultation. Abdomen is soft, nontender with active bowel sounds. Back brace in place. 2+ pedal pulses bilaterally. Objective Vital Signs Vital signs Vital Signs Date Time Temp Pulse Resp B/P Pulse Ox O2 Delivery O2 Flow Rate FiO2 01/20/17 08:21 98.0 81 18 116/62 93 Room Air Height (Feet): 5 Height (Inches): 6.00 Weight (Kilograms): 79.300 General General Appearance: Alert, Orientated x 3, Cooperative, No Acute Distress Eyes (Brief) Eyes: FOUND: PERRL, NOT FOUND: scleral icterus ENMT (Brief) ENMT: FOUND: mucosa moist, normal dentition Neck (Brief) Neck: FOUND: midline, NOT FOUND: nuchal rigidity, tracheal deviation Respiratory (Brief) Respiratory: FOUND: clear all espitia, equal bilaterally, symmetrical, NOT FOUND : rales, wheezes Cardiovascular (Brief) Cardiac: FOUND: regular rate, regular rhythm Abdomen (Brief) Abdominal: FOUND: BS normo active x4, soft, NOT FOUND: distended, tender Extremities (Brief) Extremity : Side: Bilateral Extremity: leg Extremity Finding: NOT FOUND: deformity, edema Lymphatic (Brief) Lymphatic: NOT FOUND: lymphedema Musculoskeletal (Brief) Musculoskeletal: FOUND: extremities move equally, NOT FOUND: deformity, loss of motion Integumentary (Brief) Integumentary: FOUND: dry, pink, warm Comments afebrile Neurologic (Brief) Neurological: NOT FOUND: cranial 2-12 intact, facial droop Psychiatric (Brief) Psychiatric: FOUND: alert, attentive, normal affect, oriented Laboratory Laboratory Laboratory Tests 01/19/17 05:34 01/20/17 05:23 Laboratory Tests 01/19/17 05:34 01/20/17 05:24 Assessment & Plan Problems: (1) S/P lumbar laminectomy Assessment & Plan: She was admitted to [facility], and underwent the following on 01/16/[address] Ceballos: a) L4 reexploration; Exploration of spinal fusion b) L3 Plascencia procedure (complete facetectomies and pars resection) c) L2 laminectomy d) explantation of hardware, and extension posterior lumbar spinal fusion from L3-S1 with autologous morcellated local bone and BMP impregnated infused sponges with extension of instrumentation. Stitches to come out 2 weeks post op. To Follow up With Dr. Ceballos in 6-8 weeks- will need Cervical xrays and Lumbar spine x-ray series. (2) HTN (hypertension) Status: Chronic Qualifiers: Hypertension type: essential hypertension Qualified Codes: I10 - Essential (primary) hypertension (3) GERD (gastroesophageal reflux disease) Status: Chronic Qualifiers: Esophagitis presence: esophagitis presence not specified Qualified Codes: K21.9 - Gastro-esophageal reflux disease without esophagitis (4) Urinary incontinence Status: Chronic Qualifiers: Urinary Incontinence type: unspecified incontinence Qualified Codes: R32 - Unspecified urinary incontinence (5) Hyperglycemia Status: Resolved (6) STIVEN (obstructive sleep apnea) Status: Chronic (7) H/O drug dependence Status: Resolved (8) Seasonal allergies Status: Chronic Qualifiers: Allergic rhinitis trigger: unspecified Qualified Codes: J30.2 - Other seasonal allergic rhinitis (9) Post-operative nausea and vomiting Status: Resolved Plan/Intensity of Service 01/20/17: Mirakian. - S/P lumbar lami: * Overall, Giselle appears to be doing well. Continue with rehabilitation and pain control per Dr. Turner. * Encourage participation in therapy - patient requesting to walk today. - Hyperglycemia, acute: * Present on admission with BS 118. Fasting blood sugar today 109. A1c on admission was 5.5. BGMs controlled. Continue to monitor. - Hypertension, chronic: * Blood pressure controlled. Continue lisinopril and monitor closely. - GERD: * Continue Prilosec for GERD and GI protection. - Incontinence, chronic: - STIVEN: - Constipation, acute on chronic: * Continue daily bowel motivation. * Will give 1/2 bottle mag citrate today for bowel motivation per patient request. Anticipate improved bowel movement with increased in activity and return to solid diet. Code Status Full Code Hospital Course Summary Disclaimer The hospital course summary below is not to be considered part of the above Progress Note. Hospital Course Summary 01/20/17: Sangeeta. - S/P lumbar lami: * Overall, Giselle appears to be doing well. Continue with rehabilitation and pain control per Dr. Turner. * Encourage participation in therapy - patient requesting to walk today. - Hyperglycemia, acute: * Present on admission with BS 118. Fasting blood sugar today 109. A1c on admission was 5.5. BGMs controlled. Continue to monitor. - Hypertension, chronic: * Blood pressure controlled. Continue lisinopril and monitor closely. - GERD: * Continue Prilosec for GERD and GI protection. - Incontinence, chronic: - STIVEN: - Constipation, acute on chronic: * Continue daily bowel motivation. * Will give 1/2 bottle mag citrate today for bowel motivation per patient request. Anticipate improved bowel movement with increased in activity and return to solid diet. GLENN HAYDEN MD 01/20/172008: KYM DHALIWAL Jan 20, 2017 11:00 GLENN HAYDEN MD Jan 20, 2017 20:09
[2017-01-20] MEDS: CYCLOBENZAPRINE 5 MG TABLET PO PRN ×2 (12:15→21:36)
[2017-01-20] MEDS ORDERED: MAGNESIUM CITRATE 296 ML SOLUTION PO ONE ×2 (13:00→18:30)
--- NOTE | 2017-01-20 19:32 | NUR ---
Shift Summary Patient ambulating to [facility] with back brace, gait belt, FWW, min assist. Left leg julio at times, patient recovers by self. [place] 7.5 two tablets given prn every 4 hours to control pain. Also has polar paty. No BM since before surgery 01/15. Patient has had bottle of mag citrate today with no results as yet. Showering lower body with mod assist, upper body and shampooing hair with set up. Dressing lower body with set up assist using adaptive equipment. Alert and oriented x3.
[2017-01-20] MEDS: POLYETHYL.GLYCOL 3350 PACKET 17gm PO SCH (20:40)
--- NOTE | 2017-01-20 22:31 | PDIRUOPC ---
Overall Plan of Care Date DATE: 01/20/17 TIME: 22:29 Relevant Changes Relevant Changes: No I have reviewed the patient's information and concur with the finding and results of the pre-admission screen. Certification I certify the patient for rehabilitation. Patient Impairments Prior Medical Conditions: (1) Myopathy Additional Information: PT/OT consult, care plan to be developed. 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 (3) Hyperglycemia Status: Resolved Additional Information: Medical management Current Medical Conditions: (1) Myopathy Additional Information: PT/OT consult, care plan to be developed. 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 (3) Hyperglycemia Status: Resolved Additional Information: Medical management Medical Prognosis Fair IRF Tx That Should Address Dx: Dx Requiring Medical FU: Vital Signs Vital Signs Date Time Temp Pulse Resp B/P Pulse Ox O2 Delivery O2 Flow Rate FiO2 01/20/17 20:00 87 16 01/20/17 16:31 99.2 128/64 97 Room Air Laboratory Laboratory Tests Test 01/19/17 05:34 01/19/17 15:15 01/19/17 21:26 01/20/17 05:15 White Blood Count 12.2T/MM3 Red Blood Count 3.50M/MM3 Hemoglobin 10.8GM/DL Hematocrit 31.9% Mean Corpuscular Volume 91.1UM3 Mean Corpuscular Hemoglobin 30.9UUG Mean Corpuscular Hemoglobin Concent 33.9GM/DL RDW Standard Deviation 40.9FL Platelet Count 326T/MM3 Mean Platelet Volume 9.1UM3 Immature Granulocyte % (Auto) 0.4% Neutrophils (%) (Auto) 73.7% Lymphocytes (%) (Auto) 15.8% Monocytes (%) (Auto) 9.1% Eosinophils (%) (Auto) 0.8% Basophils (%) (Auto) 0.2% Absolute Immature Granulocyte (auto 0.05T/MM3 Absolute Neutrophils (auto) 9.0T/MM3 Absolute Lymphocytes (auto) 1.9T/MM3 Absolute Monocytes (auto) 1.1T/MM3 Absolute Eosinophils (auto) 0.1T/MM3 Absolute Basophils (auto) 0.0T/MM3 Turbidity < 20 Sodium Level 138MEQ/L Potassium Level 4.2MEQ/L Chloride Level 97MEQ/L Carbon Dioxide Level 32MEQ/L Anion Gap 9MEQ/L Blood Urea Nitrogen 6.0MG/DL Creatinine 0.5MG/DL Glomerular Filtration Rate Calc 125 BUN/Creatinine Ratio 12RATIO Glucose Level 118MG/DL Calculated Osmolality 265MOSM/KG Calcium Level 8.4MG/DL Icterus Index < 2 Chemistry Specimen Hemolysis < 15 Urine Collection Type Urine Color Yellow Urine Turbidity Clear Urine pH 6.5 Urine Specific [place] <=1.005 Urine Protein Negative Urine Glucose (UA) Negative Urine Ketones Negative Urine Blood Negative Urine Nitrite Negative Urine Bilirubin Negative Urine Urobilinogen 0.2EU/DL Urine Leukocyte Esterase Negative Urinalysis Comment Microscopic not ind. Glucometer 124mg/dL 110mg/dL Test 01/20/17 05:23 01/20/17 05:24 01/20/17 11:26 01/20/17 21:41 Turbidity < 20 Sodium Level 134MEQ/L Potassium Level 3.6MEQ/L Chloride Level 95MEQ/L Carbon Dioxide Level 31MEQ/L Anion Gap 8MEQ/L Blood Urea Nitrogen 8.0MG/DL Creatinine 0.6MG/DL Glomerular Filtration Rate Calc 101 BUN/Creatinine Ratio 13RATIO Glucose Level 109MG/DL Hemoglobin A1c 5.5% Calculated Osmolality 257MOSM/KG Calcium Level 8.3MG/DL Magnesium Level 1.9MG/DL Icterus Index < 2 Thyroid Stimulating Hormone (TSH) 1.00MIU/L Chemistry Specimen Hemolysis < 15 White Blood Count 9.4T/MM3 Red Blood Count 3.10M/MM3 Hemoglobin 9.4GM/DL Hematocrit 28.2% Mean Corpuscular Volume 91.0UM3 Mean Corpuscular Hemoglobin 30.3UUG Mean Corpuscular Hemoglobin Concent 33.3GM/DL RDW Standard Deviation 40.1FL Platelet Count 386T/MM3 Mean Platelet Volume 8.1UM3 Immature Granulocyte % (Auto) 0.2% Neutrophils (%) (Auto) 70.3% Lymphocytes (%) (Auto) 20.0% Monocytes (%) (Auto) 7.9% Eosinophils (%) (Auto) 1.5% Basophils (%) (Auto) 0.1% Absolute Immature Granulocyte (auto 0.02T/MM3 Absolute Neutrophils (auto) 6.6T/MM3 Absolute Lymphocytes (auto) 1.9T/MM3 Absolute Monocytes (auto) 0.7T/MM3 Absolute Eosinophils (auto) 0.1T/MM3 Absolute Basophils (auto) 0.0T/MM3 Glucometer 108mg/dL 88mg/dL Anticipated Interventions The patient requires inpatient IRF care for PT, OT, and/or ST for residuals remaining from Lumbr laminectomy and myopathy resulting in muscular weakness and strength deficits. FIM Scores Ambulation Distance: 422 Ambulation Ability: 4 Minimal Assistance Ambulation Assistance Needed: 1 Person Stairs: 1 Total Assistance Stair Assistance Needed: 1 Person Number of Stairs: 2 Eating Ability-FIM: 7+ Complete Dozier Grooming Ability: 6 Modified Dozier Bathing Ability: 5 Supervision/Setup Upper Body Dressing Ability: 5 Supervision/Setup Lower Body Dressing Ability: 4 Minimal Assistance Lower Body Dressing Assistance: 1 Person Toileting Ability: 5 Supervision/Setup Toileting Assistance Needed: 1 Person Bed Transfer Ability: 5 Supervision/Setup Bed Transfer Assistance Needed: 1 Person Chair Transfer Ability: 5 Supervision/Setup Overall Toilet / Commode Trans: 5 Supervision/Setup Toilet / Commode Transfer Assi: 1 Person Tub / Shower Transfer Ability: 4 Minimal Assistance Tub / Shower Transfer [place]: 1 Person Comprehension Ability: 7+ Complete Dozier Social Interaction: 7+ Complete Dozier Problem Solvin Modified Dozier Expression Ability: 7+ Complete Dozier Memory: 7+ Complete Dozier Current Functional Status Patient Requires * Patient has been determined to have significant functional limitations requiring at least two therapy disciplines. * Rehabilitation medical practitioner will provide admission approval, assessment and oversight and program coordination at least daily. * Intensive rehabilitative nursing services on site and available 24 hours a day. * The treatment plan will be developed within 24 hours of admission. * Interdisciplinary and goal oriented treatment by professional nursing, social media marketing analyst, and rehabilitation therapist. * Interdisciplinary team meeting weekly inclusive of ongoing comprehensive discharge planning. First team meeting by . Weekly meetings to follow. * Rehab Physician is the team meeting leader. * Pharmacy and diagnostic services will be available. * Ongoing comprehensive rehab program with at least 2 disciplines and greater than or equal to 3 hours a day, 5 days a week. Limitations require: mobility impairment, ADL impairment Physical Therapy Minutes: 90 Occupational Therapy Minutes: 90 Therapy The patient is to receive therapy at least 5 days a week. PT Treatment Plan: Therapeutic Exercise, Gait Training, Functional Activities , Patient/Family Education, Balance/Proprioception Treatment Plan Frequency: five times per week Treatment Plan Duration: two weeks Plan of Care Comment: 6x/week for first week, 5x/week for following weeks OT Treatment Plan: ADL's (basic care), Ther. Exercise for ADL's OT Treatment Plan Frequency: five times per week OT Treatment Plan Duration: two weeks Anticapted LOS/Outcomes Anticipated Functional Outcome should return to pre surgical status with PT and OT inpus Anticipated DC Destination: Home, self [facility] Safety Plan The patient will be provided with the development of a Home Safety Plan for return to a home or home-like environment and to ensure safety post discharge. Complicating Conditions Complications since IRF admit: (1) Myopathy Comments: PT/OT consult, care plan to be developed. 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 (3) Hyperglycemia Status: Resolved Comments: Medical management Other Contributing Factors: Plan to Avoid Complications Plan to Avoid Complications The patient cannot receive this care in a lesser intensive setting such as Correction or Outpatient Therapy due to the patient requiring the following Lumbar laminectomy and myopathy. The patient requires oversight by a rehabilitation physician to manage their rehabilitation treatment plan and the multidisciplinary approach to care that can only be provided in an IRF and requires a multidisciplinary approach to care , provided by professional PTs, OTs, STs, dieticians, RTs, rehabilitation nurses and is not available in lesser levels of care. The frequency and duration for therapy, as recommended by the professional Rehabilitation therapists, meet the patient's initial rehabilitation treatment plan needs and will be further evaluated on a weekly basis for progress and/or changes needed. BERNARDA READ MD Jan 20, 2017 22:31
--- NOTE | 2017-01-21 01:38 | NUR ---
BLADDER SCAN POST VOID BLADDER SCAN SHOWS RESIDUAL 139ML.
--- NOTE | 2017-01-21 01:39 | NUR ---
STATUS PT REPORTS HER ABDOMEN IS FEELING MUCH BETTER SINCE HAVING SOME BOWEL MOVEMENTS. PT ABDOMEN IS LESS ROUND LESS FIRM AND LESS TENDER.
[2017-01-21 05:22] LABS: BASOPHILS % (AUTO) 0.2 % (0-2); EOSINOPHILS # (AUTO) 0.2 T/MM3 (0-0.5); EOSINOPHILS % (AUTO) 2.5 % (0-4); HGB - HEMOGLOBIN 9.4 GM/DL (12-16); IMMATURE GRANULOCYTE # (AUTO) 0.02 T/MM3 (0.00-0.03); IMMATURE GRANULOCYTE % (AUTO) 0.2 % (0.0-0.5); LYMPHOCYTES # (AUTO) 2.4 T/MM3 (1-4.8); LYMPHOCYTES % (AUTO) 29.1 % (23-45); MEAN CORPUSCULAR HGB 30.7 UUG (26-34); MEAN CORPUSCULAR HGB CONC(MCHC 33.6 GM/DL (31-37); MEAN CORPUSCULAR VOLUME 91.5 UM3 (80-100); MEAN PLATELET VOLUME 7.8 UM3 (9.4-12.4); MONOCYTES # (AUTO) 0.8 T/MM3 (0-0.8); MONOCYTES % (AUTO) 9.1 % (0-9.0); NEUTROPHILS #(AUTO)-ABSOLUTE 4.9 T/MM3 (1.8-7.7); NEUTROPHILS % (AUTO) 58.9 % (33-66); RED BLOOD COUNT 3.06 M/MM3 (4.00-5.20); WBC - WHITE BLOOD COUNT 8.3 T/MM3 (4.5-11.0)
[2017-01-21 05:29] LABS: ANION GAP 10 MEQ/L (5-15); BUN/CREATININE RATIO 10 RATIO (6-26); CALCIUM 8.6 MG/DL (8.4-10.2); CHLORIDE 97 MEQ/L (98-107); CO2 - CARBON DIOXIDE 32 MEQ/L (22-30); CREATININE 0.6 MG/DL (0.7-1.2); GLOMERULAR FILTRATION RATE 101; GLUCOSE 113 MG/DL (65-110); POTASSIUM 4.1 MEQ/L (3.6-5); SODIUM 139 MEQ/L (134-144)
[2017-01-21] MEDS: OMEPRAZOLE 20 MG CAPSULE PO SCH (06:01)
--- NOTE | 2017-01-21 06:19 | NUR ---
SHIFT SUMMARY PT ALERT AND ORIENTED X3. PT IS PLEASANT AND COOPERATIVE. PT ABLE TO USE WALKER WITH GAIT BELT AND BACK BRACE WITH STAND BY ASSISTANCE TO USE RESTROOM. PT USED RESTROOM SEVERAL TIMES TO URINATE AND WAS ABLE TO EVENTUALLY HAVE A BM. ACCORDING TO PT SHE HAD NOT HAD BM SINCE PRIOR TO HAVING HER BACK SURGERY. PT HAD MULTIPLE BM'S TONIGHT AND STATES SHE FEELS "MUCH BETTER". PT HAS PRN MEDICATIONS FOR PAIN PERCOCET EVERY 4 HOURS. PT HAS ALARM SET ON HER PHONE TO WAKE HER SO THAT SHE CAN REQUEST PAIN MEDICATIONS. PT REPORTS SHE SEES A "PAIN DOCTOR" FOR HER PAIN MANAGEMENT. PT REMAINED SAFE WITH BED IN LOW POSITION CALL LIGHT IN REACH SIDE RAILS UP X2 AND BED ALARM USED. PT AWARE OF HER SURROUNDINGS AND HER LIMITATIONS AND USES CALL LIGHT APPROPRIATELY TO REQUEST HELP.
[2017-01-21 08:00] VITALS: BP 149/72; PULSE 105; RESP 18; TEMP 98.8
[2017-01-21] MEDS: FEXOFENADINE 180 MG TABLET PO SCH (08:54)
[2017-01-21] MEDS: GABAPENTIN 100 MG CAPSULE PO SCH ×3 (08:55→20:04)
[2017-01-21] MEDS: DOCUSATE SODIUM 100 MG CAPSULE PO SCH ×2 (08:55→20:04)
[2017-01-21] MEDS: LISINOPRIL 10 MG TABLET PO SCH (08:55)
[2017-01-21] MEDS: POLYETHYL.GLYCOL 3350 PACKET 17gm PO SCH ×2 (08:56→20:03)
[2017-01-21] MEDS: CYCLOBENZAPRINE 5 MG TABLET PO PRN (08:57)
[2017-01-21] MEDS: OXYBUTYNIN XL 5 MG TABLET PO SCH (08:57)
--- NOTE | 2017-01-21 11:04 | PNPDOC ---
Subjective Date DATE: 01/21/17 TIME: 10:43 Subjective Josi is seen this morning while eating breakfast. She reports overall she is feeling good this morning as her bowels moved yesterday and this helped her abdomen. Back pain moderate now, continues on [place] and Flexeril. She feels that she has some lower ext weakness. Is hopeful that continued therapy will improve. No difficulty with urination, Appetite is good as she ate 100% of breakfast. BP 149/72. Objective Vital Signs Vital signs Vital Signs Date Time Temp Pulse Resp B/P Pulse Ox O2 Delivery O2 Flow Rate FiO2 01/21/17 08:00 98.8 105 18 149/72 Room Air 01/20/17 23:54 98 Height (Feet): 5 Height (Inches): 6.00 Weight (Kilograms): 79.300 General General Appearance: Alert, Orientated x 3, Cooperative, No Acute Distress Eyes (Brief) Eyes: FOUND: EOMI ENMT (Brief) ENMT: FOUND: mucosa moist, normal dentition, NOT FOUND: pharnyx erythema Neck (Brief) Neck: FOUND: midline, NOT FOUND: adenopathy, carotid bruits, tracheal deviation Respiratory (Brief) Respiratory: FOUND: clear all espitia, equal bilaterally, NOT FOUND: wheezes Cardiovascular (Brief) Cardiac: FOUND: regular rate, regular rhythm, NOT FOUND: murmur, pedal edema Capillary Refill: <2 sec Abdomen (Brief) Abdominal: FOUND: BS normo active x4, soft, NOT FOUND: distended, tender Lymphatic (Brief) Lymphatic: NOT FOUND: adenopathy Musculoskeletal (Brief) Musculoskeletal: FOUND: tenderness (Back ) Integumentary (Brief) Integumentary: FOUND: dry, pink, warm Neurologic (Brief) Neurological: FOUND: cranial 2-12 intact Psychiatric (Brief) Psychiatric: FOUND: alert, attentive, normal affect, oriented Laboratory Laboratory Laboratory Tests 01/20/17 05:23 01/21/17 05:00 Laboratory Tests 01/20/17 05:24 01/21/17 05:00 Assessment & Plan Problems: (1) S/P lumbar laminectomy Assessment & Plan: She was admitted to [facility], and underwent the following on 01/16/[address] Ceballos: a) L4 reexploration; Exploration of spinal fusion b) L3 Plascencia procedure (complete facetectomies and pars resection) c) L2 laminectomy d) explantation of hardware, and extension posterior lumbar spinal fusion from L3-S1 with autologous morcellated local bone and BMP impregnated infused sponges with extension of instrumentation. Stitches to come out 2 weeks post op. To Follow up With Dr. Ceballos in 6-8 weeks- will need Cervical xrays and Lumbar spine x-ray series. (2) HTN (hypertension) Status: Chronic Qualifiers: Hypertension type: essential hypertension Qualified Codes: I10 - Essential (primary) hypertension (3) GERD (gastroesophageal reflux disease) Status: Chronic Qualifiers: Esophagitis presence: esophagitis presence not specified Qualified Codes: K21.9 - Gastro-esophageal reflux disease without esophagitis (4) Urinary incontinence Status: Chronic Qualifiers: Urinary Incontinence type: unspecified incontinence Qualified Codes: R32 - Unspecified urinary incontinence (5) Hyperglycemia Status: Resolved (6) STIVEN (obstructive sleep apnea) Status: Chronic (7) H/O drug dependence Status: Resolved (8) Seasonal allergies Status: Chronic Qualifiers: Allergic rhinitis trigger: unspecified Qualified Codes: J30.2 - Other seasonal allergic rhinitis (9) Post-operative nausea and vomiting Status: Resolved Plan/Intensity of Service 01/21/17 Overall abdomen is feeling better now that bowels have moved last evening. Will continue with Miralax BID, and Colace BID along with multiple PRNs. In light of anemia, did review past labs. HgB from 09/2016 was 13.6. Will check Iron, Ferritin labs. Will check Stool for occult blood. She tolerating soft diet and will advance diet to regular Continue with [place] and Flexeril for pain and muscle spasms. Continue with PT/OT for ongoing therapy and improved function 1145- patient reevaluated following a phone call from nursing staff reporting that patient fell. Her left leg gave out while she was ambulating with assistance of the nurse. She fell striking her posterior head on the wall. No loss of consciousness. She is reevaluated while sitting up in her chair. She is alert and oriented. Does complain of some mild headache with a small posterior hematoma. No break in the skin. Denies having any cervical spine tenderness, however, patient does have chronic neck pain. No other injuries noted, neurovascular status intact. Code Status Full Code Hospital Course Summary Disclaimer The hospital course summary below is not to be considered part of the above Progress Note. Hospital Course Summary 01/20/17: Sangeeta. - S/P lumbar lami: * Overall, Giselle appears to be doing well. Continue with rehabilitation and pain control per Dr. Turner. * Encourage participation in therapy - patient requesting to walk today. - Hyperglycemia, acute: * Present on admission with BS 118. Fasting blood sugar today 109. A1c on admission was 5.5. BGMs controlled. Continue to monitor. - Hypertension, chronic: * Blood pressure controlled. Continue lisinopril and monitor closely. - GERD: * Continue Prilosec for GERD and GI protection. - Incontinence, chronic: - STIVEN: - Constipation, acute on chronic: * Continue daily bowel motivation. * Will give 1/2 bottle mag citrate today for bowel motivation per patient request. Anticipate improved bowel movement with increased in activity and return to solid diet. * 01/21/17 Overall abdomen is feeling better now that bowels have moved last evening. Will continue with Miralax BID, and Colace BID along with multiple PRNs. In light of anemia, did review past labs. HgB from 09/2016 was 13.6. Will check Iron, Ferritin labs. Will check Stool for occult blood. She tolerating soft diet and will advance diet to regular Continue with [place] and Flexeril for pain and muscle spasms. Continue with PT/OT for ongoing therapy and improved function 1145- patient reevaluated following a phone call from nursing staff reporting that patient fell. Her left leg gave out while she was ambulating with assistance of the nurse. She fell striking her posterior head on the wall. No loss of consciousness. She is reevaluated while sitting up in her chair. She is alert and oriented. Does complain of some mild headache with a small posterior hematoma. No break in the skin. Denies having any cervical spine tenderness, however, patient does have chronic neck pain. No other injuries noted, neurovascular status intact. JOVITA COOPER APRN Jan 21, 2017 10:50
[2017-01-21 11:20] VITALS: BP 157/71; PULSE 103; RESP 22; TEMP 98.1; O2SAT 99
--- NOTE | 2017-01-21 11:30 | NUR ---
Fall Patient finished washing hands at sink after using bathroom. 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 As she picked up her right foot, her left leg buckled and fell hitting back of her head on the wall. Patient using FWW, back brace and gait belt on as well as non skid socks. Vital signs taken and within normal limits. Pupils equal and reactive to light. Patient alert and oriented. ROM within normal limits to all extremities. Patient assisted to sitting position on the floor then assisted to standing position with 2 assist. Patient assisted to wheelchair. Patient stated she had a headache from hitting head. Venice Duffy APRN notified and came to assess patient. CT of head and cervical spine ordered.
--- NOTE | 2017-01-21 12:46 | DI ---
Indication: ITS.REASON: fall, hit head on wall PROCEDURE: CT HEAD W/O CONTRAST: Encounter: Initial Comparison: None Technique: Axial CT images through the head were performed without contrast. Iterative Reconstruction dose reducing technique was utilized. FINDINGS: The ventricles are of normal size, shape, and configuration for the patient's age. There is no evidence of acute intracranial hemorrhage, midline displacement, or mass effect. There are scattered areas of low attenuation in the white matter which most likely represent changes of chronic microvascular ischemia. The CT attenuation of the brain parenchyma is otherwise normal within the cerebellum, brain stem, and cerebral hemispheres. The tympanic cavities and mastoid air cells are free of appreciable disease. There are no definite fractures of the skull base, calvarium, or visualized portion of the midface. IMPRESSION: No CT evidence of acute traumatic intracranial injury. .
--- NOTE | 2017-01-21 12:50 | DI ---
Indication: ITS.REASON: fall, hit head on wall PROCEDURE: CT CERVICAL SPINE W/O CONTRAST: Encounter: Initial Comparison: None Technique: Axial CT images through the cervical spine were performed without contrast. Coronal and sagittal reformatted images were also obtained. Automated Exposure Control and Iterative Reconstruction dose reducing techniques were utilized. FINDINGS: The alignment of the cervical spine is normal. Anterior C5-C7 cervical fusion with interbody bone cages. Multilevel degenerative changes are present. There is no evidence of acute fracture or subluxation of the cervical spine. The atlantoaxial articulation, dens, and upper cervical spine demonstrate no subluxation. The paraspinal soft tissues and spinal canal appear unremarkable. IMPRESSION: No acute traumatic abnormality of the cervical spine. .
[2017-01-21 16:02] VITALS: BP 123/66; PULSE 114; RESP 16; TEMP 98.7; O2SAT 92
--- NOTE | 2017-01-21 18:20 | NUR ---
Shift Summary. Patient ambulating with FWW, gait belt, LSO brace and min assist. Dressing to back incision clean, dry and intact. Pain remains at 8-9/10 with norco 7.5 two tablets approx. every 4 hours as needed and polar paty to lumbar area of back. Transfers with min assist, gait belt, back brace and FWW. Patient A&O x3. Patient states she feels much better since she had several bowel movements during the night. Patient refuses her lisinopril stating she "doesn't have high blood pressure". BGMs d/cd and diet upgraded to regular.
[2017-01-21 19:50] VITALS: BP 125/70; PULSE 102; RESP 18; TEMP 98.2; O2SAT 96
--- NOTE | 2017-01-21 21:02 | PNPDOC ---
IRU Subjective Date DATE: 01/21/17 TIME: 21:00 Subjective WOrking with PT and OT today. no complaints on visit. IRU Objective Vital Signs Vital signs Vital Signs Date Time Temp Pulse Resp B/P Pulse Ox O2 Delivery O2 Flow Rate FiO2 01/21/17 19:50 98.2 102 18 125/70 96 Room Air Telemetry Rhythm: Sinus Rhythm Height (Feet): 5 Height (Inches): 6.00 Weight (Kilograms): 79.300 General General Appearance: Alert, Orientated x 2 Respiratory (Brief) Respiratory: FOUND: clear all espitia, equal bilaterally, NOT FOUND: rales, wheezes Cardiovascular (Brief) Cardiac: FOUND: regular rate, regular rhythm Capillary Refill: <2 sec Laboratory Laboratory Laboratory Tests Test 01/19/17 21:26 01/20/17 05:15 01/20/17 05:23 01/20/17 05:24 Glucometer 124mg/dL 110mg/dL Turbidity < 20 Sodium Level 134MEQ/L Potassium Level 3.6MEQ/L Chloride Level 95MEQ/L Carbon Dioxide Level 31MEQ/L Anion Gap 8MEQ/L Blood Urea Nitrogen 8.0MG/DL Creatinine 0.6MG/DL Glomerular Filtration Rate Calc 101 BUN/Creatinine Ratio 13RATIO Glucose Level 109MG/DL Hemoglobin A1c 5.5% Calculated Osmolality 257MOSM/KG Calcium Level 8.3MG/DL Magnesium Level 1.9MG/DL Icterus Index < 2 Thyroid Stimulating Hormone (TSH) 1.00MIU/L Chemistry Specimen Hemolysis < 15 White Blood Count 9.4T/MM3 Red Blood Count 3.10M/MM3 Hemoglobin 9.4GM/DL Hematocrit 28.2% Mean Corpuscular Volume 91.0UM3 Mean Corpuscular Hemoglobin 30.3UUG Mean Corpuscular Hemoglobin Concent 33.3GM/DL RDW Standard Deviation 40.1FL Platelet Count 386T/MM3 Mean Platelet Volume 8.1UM3 Immature Granulocyte % (Auto) 0.2% Neutrophils (%) (Auto) 70.3% Lymphocytes (%) (Auto) 20.0% Monocytes (%) (Auto) 7.9% Eosinophils (%) (Auto) 1.5% Basophils (%) (Auto) 0.1% Absolute Immature Granulocyte (auto 0.02T/MM3 Absolute Neutrophils (auto) 6.6T/MM3 Absolute Lymphocytes (auto) 1.9T/MM3 Absolute Monocytes (auto) 0.7T/MM3 Absolute Eosinophils (auto) 0.1T/MM3 Absolute Basophils (auto) 0.0T/MM3 Test 01/20/17 11:26 01/20/17 21:41 01/21/17 05:00 01/21/17 09:27 Glucometer 108mg/dL 88mg/dL 142mg/dL White Blood Count 8.3T/MM3 Red Blood Count 3.06M/MM3 Hemoglobin 9.4GM/DL Hematocrit 28.0% Mean Corpuscular Volume 91.5UM3 Mean Corpuscular Hemoglobin 30.7UUG Mean Corpuscular Hemoglobin Concent 33.6GM/DL RDW Standard Deviation 39.5FL Platelet Count 430T/MM3 Mean Platelet Volume 7.8UM3 Immature Granulocyte % (Auto) 0.2% Neutrophils (%) (Auto) 58.9% Lymphocytes (%) (Auto) 29.1% Monocytes (%) (Auto) 9.1% Eosinophils (%) (Auto) 2.5% Basophils (%) (Auto) 0.2% Absolute Immature Granulocyte (auto 0.02T/MM3 Absolute Neutrophils (auto) 4.9T/MM3 Absolute Lymphocytes (auto) 2.4T/MM3 Absolute Monocytes (auto) 0.8T/MM3 Absolute Eosinophils (auto) 0.2T/MM3 Absolute Basophils (auto) 0.0T/MM3 Turbidity < 20 Sodium Level 139MEQ/L Potassium Level 4.1MEQ/L Chloride Level 97MEQ/L Carbon Dioxide Level 32MEQ/L Anion Gap 10MEQ/L Blood Urea Nitrogen 6.0MG/DL Creatinine 0.6MG/DL Glomerular Filtration Rate Calc 101 BUN/Creatinine Ratio 10RATIO Glucose Level 113MG/DL Calculated Osmolality 267MOSM/KG Calcium Level 8.6MG/DL Icterus Index < 2 Chemistry Specimen Hemolysis < 15 Test 01/21/17 19:00 Stool Occult Blood Negative Assessment & Plan Problems: (1) Myopathy Assessment & Plan: Working with PT and OT, cont with current plan. Reassess on saturday team meeting. (2) S/P lumbar laminectomy Assessment & Plan: stable., managed by medical for post op. Ortho if needed. (3) Hyperglycemia Status: Resolved Assessment & Plan: managed by medical. Code Status Full Code Interventions to Obtain Goals PT Treatment Plan: Therapeutic Exercise, Gait Training, Functional Activities , Patient/Family Education, Balance/Proprioception OT Treatment Plan: ADL's (basic care), Ther. Exercise for ADL's Hospital Course Summary Disclaimer The hospital course summary below is not to be considered part of the above Progress Note. Hospital Course Summary 01/20/17: Mirakian. - S/P lumbar lami: * Overall, Giselle appears to be doing well. Continue with rehabilitation and pain control per Dr. Read. * Encourage participation in therapy - patient requesting to walk today. - Hyperglycemia, acute: * Present on admission with BS 118. Fasting blood sugar today 109. A1c on admission was 5.5. BGMs controlled. Continue to monitor. - Hypertension, chronic: * Blood pressure controlled. Continue lisinopril and monitor closely. - GERD: * Continue Prilosec for GERD and GI protection. - Incontinence, chronic: - STIVEN: - Constipation, acute on chronic: * Continue daily bowel motivation. * Will give 1/2 bottle mag citrate today for bowel motivation per patient request. Anticipate improved bowel movement with increased in activity and return to solid diet. * 01/21/17 Overall abdomen is feeling better now that bowels have moved last evening. Will continue with Miralax BID, and Colace BID along with multiple PRNs. In light of anemia, did review past labs. HgB from 09/2016 was 13.6. Will check Iron, Ferritin labs. Will check Stool for occult blood. She tolerating soft diet and will advance diet to regular Continue with [place] and Flexeril for pain and muscle spasms. Continue with PT/OT for ongoing therapy and improved function 1145- patient reevaluated following a phone call from nursing staff reporting that patient fell. Her left leg gave out while she was ambulating with assistance of the nurse. She fell striking her posterior head on the wall. No loss of consciousness. She is reevaluated while sitting up in her chair. She is alert and oriented. Does complain of some mild headache with a small posterior hematoma. No break in the skin. Denies having any cervical spine tenderness, however, patient does have chronic neck pain. No other injuries noted, neurovascular status intact. BERNARDA READ MD Jan 21, 2017 21:02
[2017-01-22] MEDS: CYCLOBENZAPRINE 5 MG TABLET PO PRN ×2 (00:13→21:13)
[2017-01-22] MEDS: MELATONIN 5 MG TABLET PO SCH (00:14)
[2017-01-22] MEDS: OMEPRAZOLE 20 MG CAPSULE PO SCH (04:28)
--- NOTE | 2017-01-22 05:05 | NUR ---
Chart Check 24 hour chart check completed
--- NOTE | 2017-01-22 05:05 | NUR ---
Summary Pt ambulates well, standby assist. Pt has set an alarm on her phone for PRN pain meds. Pain, rated 6-8, managed with 15mg [place] Q4H, and 5mg Flexeril and ice pack to L knee. Pt expressed some anxiety about going home, but is glad therapy will show her how to get up off the floor in case she falls at home.Pt has been standby assist, ambulating steady this shift. Pt would stand and perform toilet hygiene before notifying staff. Pt reminded of safety precautions and to wait for staff before standing. Pt smiles often. Pt states "I really like the people here, the staff and the patients". Pt requested and given Melatonin 5mg tonight, Pt is sleeping at this time.
[2017-01-22 08:00] VITALS: BP 149/75; PULSE 77; RESP 20; TEMP 98.1; O2SAT 96
[2017-01-22] MEDS: DOCUSATE SODIUM 100 MG CAPSULE PO SCH ×2 (08:24→21:13)
[2017-01-22] MEDS: FEXOFENADINE 180 MG TABLET PO SCH (08:24)
[2017-01-22] MEDS: POLYETHYL.GLYCOL 3350 PACKET 17gm PO SCH ×3 (08:25→21:38)
[2017-01-22] MEDS: GABAPENTIN 100 MG CAPSULE PO SCH ×3 (08:25→21:13)
[2017-01-22] MEDS: OXYBUTYNIN XL 5 MG TABLET PO SCH (08:25)
[2017-01-22] MEDS: LISINOPRIL 10 MG TABLET PO SCH (08:27)
--- NOTE | 2017-01-22 13:54 | NUR ---
MADDY [place] SCORE IS 11. THIS WORKER WILL MONITOR FOR ROTP APPROPRIATENESS. Addendum: 01/22/17 at 1354 by GIANNA ARGUETA Amended: Links added.
--- NOTE | 2017-01-22 13:55 | NUR ---
MADDY SPOKE WITH PT, INTRODUCED SELF, EXPLAINED ROLE, PROVIDED CONTACT INFO. PT STATED SHE LIVES HERE IN [place] AND HER GOAL IS TO RETURN HOME. SHE SAID SHE HAS FAMILY BUT "WE ARE ON ICE" RIGHT NOW. THEY DO NOT PROVIDE SUPPORT TO HER. SHE SAID SHE DOES NOT HAVE ANY FRIENDS EITHER. SHE SAID SHE HAS A VAN AND DRIVES BUT CANNOT DRIVE CURRENTLY DUE TO HER BACK. HER TRANSPORTATION OPTIONS ARE: HER DOCTORS' OFFICE PROVIDES A COURTESY TRANSPORTATION AND WILL PICK HER UP WHEN SHE IS RELEASED FROM REHAB. ALSO, SHE CAN TAKE THE TAXI AND USE [facility]SP[facility]. SHE SAID SHE CAN AFFORD THIS. SHE SAID SHE IS PENDING MEDICAID AND IS IN THE PROCESS OF HAVING A $3,000.00 SPEND DOWN BEFORE SHE IS ELIGIBLE FOR MEDICAID. SHE SAID SHE HAS A CANE ALREADY BUT THINKS SHE WILL NEED A WALKER AND A SHOWER CHAIR, ALONG WITH SOME ASSISTED DEVICES (AIR QUALITY CONSULTANT, ETC). THIS WORKER EXPLAINED THAT THESE WILL BE FOLLOWED UP WITH. SHE HAD NO FURTHER QUESTIONS/NEEDS FOR THIS WORKER. Addendum: 01/22/17 at 1401 by GIANNA ARGUETA Amended: Links added.
[2017-01-22 16:22] VITALS: BP 135/75; PULSE 79; RESP 16; TEMP 97.6; O2SAT 99
--- NOTE | 2017-01-22 20:35 | NUR ---
Shift summary Patient ambulating with FWW, gait belt, min assist with LSO brace. Transfers with min assist. Patient has history of left leg buckling on her when ambulating. Bathing with set up assist. Dressing with set up assist using adaptive equipment. Feeds self regular diet. Pain medication given every 4 hours prn.
[2017-01-22 23:30] VITALS: BP 148/71; PULSE 88; RESP 16; TEMP 98.3; O2SAT 95
[2017-01-23 02:55] LABS: FERRITIN 71.4 NG/ML (11-264)
--- NOTE | 2017-01-23 05:19 | NUR ---
Summary Pt has expressed that she enjoys the people here but she is ready to go home. She has had pain in her L knee and back. Darline managed with PRNs [place] 15mg, and Flexeril 5mg. Pt has used her back brace FWW and GB, and ambulates steady most of the time. Pt's left leg has "gone out" on her once this shift but caused only a minor disturbance in gait which the pt corrected herself. Pt to BR with constant observation because pt does not always call staff before standing. Pt has fan in room for white noise due to "noisy neighbors televisions" which she says has helped a lot. Pt awake at this time in bed resting with headphones on.
[2017-01-23] MEDS: OMEPRAZOLE 20 MG CAPSULE PO SCH ×2 (05:43→20:40)
[2017-01-23 07:45] VITALS: BP 132/67; PULSE 88; RESP 16; TEMP 97.9; O2SAT 100
[2017-01-23 08:00] VITALS: PULSE 88; RESP 20
[2017-01-23] MEDS: FEXOFENADINE 180 MG TABLET PO SCH (10:07)
[2017-01-23] MEDS: POLYETHYL.GLYCOL 3350 PACKET 17gm PO SCH ×2 (10:08→20:40)
[2017-01-23] MEDS: GABAPENTIN 100 MG CAPSULE PO SCH ×3 (10:08→20:40)
[2017-01-23] MEDS: DOCUSATE SODIUM 100 MG CAPSULE PO SCH ×2 (10:09→20:40)
[2017-01-23] MEDS: OXYBUTYNIN XL 5 MG TABLET PO SCH (10:10)
[2017-01-23] MEDS: LISINOPRIL 10 MG TABLET PO SCH (10:11)
--- NOTE | 2017-01-23 10:30 | NUR ---
Meds Pt. refused Ditropan and Lisinopril this A.M. She reports BP was good this A.M. and if she takes the Lisinopril it will make her BP drop. Will continue to monitor.
--- NOTE | 2017-01-23 12:58 | PDIRUTEAM ---
Multidisciplinary Team Meeting Nursing Hx Incontinence: Yes Bladder Goal: 6 Modified Ewing Yeh Y/N: No Bladder Continent or Incontine: Continent Incontinent Product Used: Patient's Own Underwear Cleaning Ability-Bladder: 6 Modified Ewing Bowel Goal: 7+ Complete Ewing Colostomy Y/N: No Bowel Incontinent/Continent: Continent Bowel Number of Accidents: 0 Number of times Incontinent of: 0 Cleaning Ability-Bowel: 5 Supervision/Setup Toileting Ability: 5 Supervision/Setup Vital Signs Vital Signs Date Time Temp Pulse Resp B/P Pulse Ox O2 Delivery O2 Flow Rate FiO2 01/23/17 08:00 88 20 01/23/17 07:45 97.9 132/67 100 Room Air Current Medications Current Medications Medications (Trade) Dose Ordered Sig/Marisela Route PRN Reason Start Time Stop Time Status Last Admin Dose Admin Acetaminophen/ Hydrocodone Bitart ([place] 7.5/325) PRN PAIN Q4H PRN PO PAIN 01/18/17 16:15 01/23/17 10:10 Bisacodyl (Dulcolax) 10 mg DAILY PRN RECTALLY CONSTIPATION 01/18/17 18:00 01/19/17 20:20 Docusate Sodium (Colace) 100 mg BID PO 01/18/17 21:00 01/23/17 10:09 Fexofenadine HCl (Valeria) 180 mg DAILY PO 01/19/17 09:00 01/23/17 10:07 Magnesium Hydroxide (Mom) 30 ml DAILY PRN PO CONSTIPATION 01/18/17 18:15 01/19/17 14:56 Omeprazole (Prilosec) 20 mg ACB PO 01/19/17 06:30 01/23/17 05:43 Oxybutynin Chloride (Ditropan Xl) 15 mg DAILY PO 01/19/17 09:00 01/22/17 08:25 Lisinopril (Prinivil) 10 mg DAILY PO 01/19/17 12:15 01/19/17 13:45 Cyclobenzaprine HCl (Flexeril) 5 mg TID PRN PO 01/19/17 19:30 01/22/17 21:13 Polyethylene Glycol (Miralax) 17 g DAILY PO 01/20/17 09:00 01/20/17 19:54 DC 01/20/17 08:38 Gabapentin (Neurontin) 100 mg TID PO 01/19/17 21:00 01/23/17 10:08 Polyethylene Glycol (Miralax) 17 g BID PO 01/20/17 21:00 01/23/17 10:08 Melatonin (Melatonin) 5 mg HS PO 01/22/17 22:00 01/22/17 00:14 Comments Fell on saturday. no injury. using polarpac for cooling/pain relief. Continent bowel and bladder. Physical Therapy Bed Transfer Ability: 5 Supervision/Setup Bed Transfer Assistance Needed: 1 Person Chair Transfer Ability: 5 Supervision/Setup Chair Transfer Assistance Need: 1 Person Overall Toilet / Commode Trans: 5 Supervision/Setup Ambulation Ability: 4 Minimal Assistance Ambulation Assistance Needed: 1 Person Ambulation Distance: 210 Comments FIMS 5-6 [address] stairs. Compensates well, unless she forgets to brace with arms , which is why she fell earlier this week. Occupational Therapy Grooming Ability: 6 Modified Ewing Bathing Ability: 5 Supervision/Setup Upper Body Dressing Ability: 6 Modified [place] Lower Body Dressing Ability: 4 Minimal Assistance Lower Body Dressing Assistance: 1 Person Toileting Assistance Needed: 1 Person Comments FIMS 4-5. Impulsive . Left leg gives out if standing more than 20min. Concerned about swelling of left leg. Care Plan Condition at time of discharge: Fair IRU Discharge Disposition: Home, self care Interventions/Goals Barriers to d/c, weakness, safety endurance.. look forward to d/c saturday. BERNARDA READ MD Jan 23, 2017 12:58
--- NOTE | 2017-01-23 15:00 | NUR ---
Pain Pt. has been rating sharp pain in lower back and left leg between a 8-10/10 all shift. Pt. has been getting PRN pain meds routinely. Please see eMAR. She is requesting pain meds on a schedule. Notified FARIHA Millard. [place] 7.5 was ordered scheduled Q4H. Please see eMAR. Pt. notified. Encouraged polar pack and re-positioning for comfort. Will continue to monitor.
[2017-01-23 15:54] VITALS: BP 145/72; PULSE 80; RESP 18; TEMP 98.2; O2SAT 99
[2017-01-23] MEDS: CYCLOBENZAPRINE 5 MG TABLET PO PRN ×3 (15:55→23:44)
--- NOTE | 2017-01-23 15:58 | PNPDOC ---
Subjective Date DATE: 01/23/17 TIME: 15:47 Subjective She is seen today laying in bed. She informs that today is worst that her back has felt since her surgery. She suspects this is related to more movement with therapy. She continues to have left leg having numbness and swelling. She would like to have her pain medication reevaluated as it is making it difficult for her to get comfortable to rest. She has ecchymosis to the top of her left foot at 5th metatarsal base as well as medial malleolus are area. She attributes this to her fall on Sunday 01/21. Denies shortness of breath, chest pain, or GI complaints. Appetite is fair and bowels are moving regularly. Objective Vital Signs Vital signs Vital Signs Date Time Temp Pulse Resp B/P Pulse Ox O2 Delivery O2 Flow Rate FiO2 01/23/17 08:00 88 20 01/23/17 07:45 97.9 132/67 100 Room Air Height (Feet): 5 Height (Inches): 6.00 Weight (Kilograms): 79.300 General General Appearance: Alert, Orientated x 3, Well Nourished, Cooperative, No Acute Distress Eyes (Brief) Eyes: FOUND: EOMI, PERRL Respiratory (Brief) Respiratory: FOUND: clear all espitia Cardiovascular (Brief) Cardiac: FOUND: pedal edema (LLE 2+ throughout), peripheral edema (Left LE + 2 ), regular rate, regular rhythm Abdomen (Brief) Abdominal: FOUND: BS normo active x4, soft Extremities (Brief) Extremity : Side: Left Extremity: leg, foot Extremity Finding: FOUND: edema, other (bruising noted to left 5th toe and medial lateral foot) Musculoskeletal (Brief) Musculoskeletal: FOUND: tenderness (Lumbar back) Integumentary (Brief) Integumentary: FOUND: dry, other (Incision to lower back, dressing c/d/i), pink , warm Neurologic (Brief) Neurological: FOUND: cranial 2-12 intact Psychiatric (Brief) Psychiatric: FOUND: alert, normal affect, oriented Assessment & Plan Problems: (1) Swelling of lower extremity Status: Acute (2) S/P lumbar laminectomy Assessment & Plan: She was admitted to [facility], and underwent the following on 01/16/[address] Ceballos: a) L4 reexploration; Exploration of spinal fusion b) L3 Plascencia procedure (complete facetectomies and pars resection) c) L2 laminectomy d) explantation of hardware, and extension posterior lumbar spinal fusion from L3-S1 with autologous morcellated local bone and BMP impregnated infused sponges with extension of instrumentation. Stitches to come out 2 weeks post op. To Follow up With Dr. Ceballos in 6-8 weeks- will need Cervical xrays and Lumbar spine x-ray series. (3) HTN (hypertension) Status: Chronic Qualifiers: Hypertension type: essential hypertension Qualified Codes: I10 - Essential (primary) hypertension (4) GERD (gastroesophageal reflux disease) Status: Chronic Qualifiers: Esophagitis presence: esophagitis presence not specified Qualified Codes: K21.9 - Gastro-esophageal reflux disease without esophagitis (5) Urinary incontinence Status: Chronic Qualifiers: Urinary Incontinence type: unspecified incontinence Qualified Codes: R32 - Unspecified urinary incontinence (6) Hyperglycemia Status: Resolved (7) STIVEN (obstructive sleep apnea) Status: Chronic (8) H/O drug dependence Status: Resolved (9) Seasonal allergies Status: Chronic Qualifiers: Allergic rhinitis trigger: unspecified Qualified Codes: J30.2 - Other seasonal allergic rhinitis (10) Post-operative nausea and vomiting Status: Resolved Plan/Intensity of Service 01/23/17 Obtain US Doppler of LLE to rule out DVT as well as foot XR to r/o fracture Will add BRITTANY hose to assist with edema, She reports that the SCD's are uncomfortable for her. Must continue SCDs for postoperative DVT prophylaxis Blood pressure remained stable, continue on current regimen of lisinopril 10 milligrams daily. Continue with scheduled Colace and MiraLAX twice a day for ongoing bowel motivation Last hemoglobin on 02/17 was stable at 9.4. We will recheck a CBC tomorrow, 01/24 to follow anemia To better control her pain, we will change her [place] 7.5mg from PRN to scheduled 2 tabs every 4 hours. Did discuss pain management plan with Dr Turner We will continue with PT and OT to improve her strength and stability. DVT Prophylaxis: SCD'S, BRITTANY Hose Code Status Full Code Hospital Course Summary Disclaimer The hospital course summary below is not to be considered part of the above Progress Note. Hospital Course Summary 01/20/17: Mir[place]ian. - S/P lumbar lami: * Overall, Giselle appears to be doing well. Continue with rehabilitation and pain control per Dr. Turner. * Encourage participation in therapy - patient requesting to walk today. - Hyperglycemia, acute: * Present on admission with BS 118. Fasting blood sugar today 109. A1c on admission was 5.5. BGMs controlled. Continue to monitor. - Hypertension, chronic: * Blood pressure controlled. Continue lisinopril and monitor closely. - GERD: * Continue Prilosec for GERD and GI protection. - Incontinence, chronic: - STIVEN: - Constipation, acute on chronic: * Continue daily bowel motivation. * Will give 1/2 bottle mag citrate today for bowel motivation per patient request. Anticipate improved bowel movement with increased in activity and return to solid diet. * 01/21/17 Overall abdomen is feeling better now that bowels have moved last evening. Will continue with Miralax BID, and Colace BID along with multiple PRNs. In light of anemia, did review past labs. HgB from 09/2016 was 13.6. Will check Iron, Ferritin labs. Will check Stool for occult blood. She tolerating soft diet and will advance diet to regular Continue with [place] and Flexeril for pain and muscle spasms. Continue with PT/OT for ongoing therapy and improved function 1145- patient reevaluated following a phone call from nursing staff reporting that patient fell. Her left leg gave out while she was ambulating with assistance of the nurse. She fell striking her posterior head on the wall. No loss of consciousness. She is reevaluated while sitting up in her chair. She is alert and oriented. Does complain of some mild headache with a small posterior hematoma. No break in the skin. Denies having any cervical spine tenderness, however, patient does have chronic neck pain. No other injuries noted, neurovascular status intact. 01/23/17 Obtain US Doppler of LLE to rule out DVT as well as foot XR to r/o fracture Will add BRITTANY hose to assist with edema, She reports that the SCD's are uncomfortable for her. Must continue SCDs for postoperative DVT prophylaxis Blood pressure remained stable, continue on current regimen of lisinopril 10 milligrams daily. Continue with scheduled Colace and MiraLAX twice a day for ongoing bowel motivation Last hemoglobin on 02/17 was stable at 9.4. We will recheck a CBC tomorrow, 01/24 to follow anemia To better control her pain, we will change her [place] 7.5mg from PRN to scheduled 2 tabs every 4 hours. Did discuss pain management plan with Dr Turner We will continue with PT and OT to improve her strength and stability. JOVITA COOPER APRN Jan 23, 2017 15:50
--- NOTE | 2017-01-23 16:22 | DI ---
Indication: ITS.REASON: bruising to foot following a fall PROCEDURE: FOOT LEFT 3 VIEWS: Encounter: Initial Comparison: None Findings: There is evidence of a sharp cortical margin with offset in the lateral base of the fourth toe proximal phalanx seen on the oblique view only. No additional area concerning for acute fracture. No dislocation. Bony demineralization. Inferior calcaneal spurring. Impression: Closed posttraumatic nondisplaced fracture of the fourth toe proximal phalanx. .
--- NOTE | 2017-01-23 16:51 | NUR ---
PT NOTE: Unable to obtain full 3 hours of therapy this date, lacking 30 minutes d/t pt refusal. Pt reports "No, I'm not going to do any physical therapy or any movements with my legs until they do this doppler for a DVT." Pt encouraged to try and make up minutes tomorrow, pt acknowledged understanding. Call [phone] with questions.
--- NOTE | 2017-01-23 16:56 | DI ---
Indication: ITS.REASON: left lower extremity swelling PROCEDURE: US VENOUS DUPLEX, LOWER EXT LT: Encounter: Initial Comparison: December 04, 2016 Technique: Color Doppler duplex and grayscale sonographic imaging of the left lower extremity was performed. Findings: There is no evidence for acute deep venous thrombosis in the left thigh. Specifically, serial graded compression was performed from the inguinal ligament to the popliteal bifurcation, on the left thigh, demonstrating appropriate compressibility of the deep venous system. In addition, color and pulsed Doppler demonstrate appropriate spontaneous flow, variation with respiration, and augmentation with calf compression. At the ankle, normal flow is identified in the posterior tibial veins; these vessels are also normal in caliber. Impression: No evidence of acute DVT in the left lower limb. .
--- NOTE | 2017-01-23 18:43 | NUR ---
Summary VS's stable. Pt. is a moderate assist x1 with FWW and gait belt. Back brace applied when pt. is out of bed. It is reported pt.'s left leg gives out on her at times. Pt. reports that left leg is numb and she cannot bear weight on it. She reports it has been this way since surgery. FARIHA Millard notified. Left Leg US and left foot x-rays ordered by FARIHA Millard this afternoon. I/O adequate. Pt. is continent of both bowel and bladder. She takes meds whole. Pt. is currently resting in bed. Alarm is on. Will pass on report to security shift supervisor.
--- NOTE | 2017-01-23 18:49 | NUR ---
Pain Pt. is still reporting pain in back and left leg between an 8-10/10. She reports she cannot get comfortable and requests we ask the DrMax about trying something other than [place] for pain. PRN Flexeril also administered this afternoon. Please see eMAR. Spoke with FARIHA Millard, and notified her of pt. request. She reports she will talk with Dr. Turner and call back. Will pass on to clicking machine operator.
[2017-01-23 20:17] VITALS: BP 171/85; PULSE 87; RESP 18; TEMP 97.7; O2SAT 94
[2017-01-23] MEDS: MELATONIN 5 MG TABLET PO SCH (20:36)
--- NOTE | 2017-01-23 20:49 | PNPDOC ---
IRU Subjective Date DATE: 01/23/17 TIME: 20:47 Subjective Having difficulty with pain management. She is cooperating well with PT and OT. Has had foot pain since striking foot against wheelchair at time of fall. IRU Objective Vital Signs Vital signs Vital Signs Date Time Temp Pulse Resp B/P Pulse Ox O2 Delivery O2 Flow Rate FiO2 01/23/17 20:17 97.7 87 18 171/85 94 Room Air Telemetry Rhythm: Sinus Rhythm Height (Feet): 5 Height (Inches): 6.00 Weight (Kilograms): 79.300 General General Appearance: Alert, Orientated x 3 Respiratory (Brief) Respiratory: FOUND: clear all espitia, equal bilaterally, NOT FOUND: rales, wheezes Cardiovascular (Brief) Cardiac: FOUND: regular rate, regular rhythm Capillary Refill: <2 sec Musculoskeletal (Brief) Comments tenderness and edema of left foot. Assessment & Plan Problems: (1) Myopathy Assessment & Plan: PT and OT working with pt, cont plan of care. Team meeting and discussed today. (2) S/P lumbar laminectomy Assessment & Plan: managed by medical. PT and OT working to increase strength and stamina. (3) Hyperglycemia Status: Resolved Assessment & Plan: managed by medical. DVT Prophylaxis: SCD'S Code Status Full Code Interventions to Obtain Goals PT Treatment Plan: Therapeutic Exercise, Gait Training, Functional Activities , Patient/Family Education, Balance/Proprioception OT Treatment Plan: ADL's (basic care), Ther. Exercise for ADL's Hospital Course Summary Disclaimer The hospital course summary below is not to be considered part of the above Progress Note. Hospital Course Summary 01/20/17: Sangeeta. - S/P lumbar lami: * Overall, Giselle appears to be doing well. Continue with rehabilitation and pain control per Dr. Read. * Encourage participation in therapy - patient requesting to walk today. - Hyperglycemia, acute: * Present on admission with BS 118. Fasting blood sugar today 109. A1c on admission was 5.5. BGMs controlled. Continue to monitor. - Hypertension, chronic: * Blood pressure controlled. Continue lisinopril and monitor closely. - GERD: * Continue Prilosec for GERD and GI protection. - Incontinence, chronic: - STIVEN: - Constipation, acute on chronic: * Continue daily bowel motivation. * Will give 1/2 bottle mag citrate today for bowel motivation per patient request. Anticipate improved bowel movement with increased in activity and return to solid diet. * 01/21/17 Overall abdomen is feeling better now that bowels have moved last evening. Will continue with Miralax BID, and Colace BID along with multiple PRNs. In light of anemia, did review past labs. HgB from 09/2016 was 13.6. Will check Iron, Ferritin labs. Will check Stool for occult blood. She tolerating soft diet and will advance diet to regular Continue with [place] and Flexeril for pain and muscle spasms. Continue with PT/OT for ongoing therapy and improved function 1145- patient reevaluated following a phone call from nursing staff reporting that patient fell. Her left leg gave out while she was ambulating with assistance of the nurse. She fell striking her posterior head on the wall. No loss of consciousness. She is reevaluated while sitting up in her chair. She is alert and oriented. Does complain of some mild headache with a small posterior hematoma. No break in the skin. Denies having any cervical spine tenderness, however, patient does have chronic neck pain. No other injuries noted, neurovascular status intact. 01/23/17 Obtain US Doppler of LLE to rule out DVT as well as foot XR to r/o fracture Will add BRITTANY hose to assist with edema, She reports that the SCD's are uncomfortable for her. Must continue SCDs for postoperative DVT prophylaxis Blood pressure remained stable, continue on current regimen of lisinopril 10 milligrams daily. Continue with scheduled Colace and MiraLAX twice a day for ongoing bowel motivation Last hemoglobin on 02/17 was stable at 9.4. We will recheck a CBC tomorrow, 01/24 to follow anemia To better control her pain, we will change her [place] 7.5mg from PRN to scheduled 2 tabs every 4 hours. Did discuss pain management plan with Dr Read We will continue with PT and OT to improve her strength and stability. BERNARDA READ MD Jan 23, 2017 20:49
[2017-01-23] MEDS: TROLAMINE SALICYLATE 85 GM TUBE TOP PRN (22:51)
[2017-01-23] MEDS: LIDOCAINE 5% PATCH TOP PRN (22:52)
[2017-01-23 23:22] VITALS: PULSE 87; RESP 18
--- NOTE | 2017-01-24 02:35 | NUR ---
Chart Check 24 hour chart check completed
[2017-01-24] MEDS: CYCLOBENZAPRINE 5 MG TABLET PO PRN ×2 (04:46→20:18)
[2017-01-24] MEDS: OMEPRAZOLE 20 MG CAPSULE PO SCH (05:47)
[2017-01-24] MEDS: TROLAMINE SALICYLATE 85 GM TUBE TOP PRN ×2 (05:48→23:19)
--- NOTE | 2017-01-24 05:59 | NUR ---
Summary Patient was very uncomfortable last night. She reported pain of 10/10 to left knee, even an hour after having her scheduled medications. Dr Cano was contacted. He ordered Aspricream and a Lidoderm patch. He also ordered a one time dose of [place], and he okayed me going over recommended dose of Tylenol per my request as the last two times I gave her scheduled Quinnesec, it went over that dose. I non administered the one time dose due to the Tylenol limit. I also held back her morning dose about an hour and a half so that the Tylenol would not exceed recommended 2 hour limit again. Polar Pack, Flexaril, Aspiracream and Lidoderm patch was used with the Quinn[place] to control the pain. This morning she is rating her pain at 8/10 to knee and back. She ambulates with supervision to and from restroom with her back brace, the FWW and gait belt. She is able to put her own back brace on, get in and out of bed, and do her own toileting. She asked this morning what would happen if she refused PT this morning because the pain is not worth it. I told her I did not know the policy and that I will follow up with first shift. She has sat up in her bed frequently due to discomfort and set off her alarm. When in bed alarm is on, side rails up times two and call light within reach.
[2017-01-24] MEDS: LIDOCAINE PATCH REMOVAL TOP PRN (06:23)
[2017-01-24 08:00] VITALS: BP 148/79; PULSE 112; RESP 16; TEMP 97; O2SAT 96
[2017-01-24] MEDS: DOCUSATE SODIUM 100 MG CAPSULE PO SCH (09:21)
[2017-01-24] MEDS: FEXOFENADINE 180 MG TABLET PO SCH (09:21)
[2017-01-24] MEDS: OXYBUTYNIN XL 5 MG TABLET PO SCH (09:21)
[2017-01-24] MEDS: LISINOPRIL 10 MG TABLET PO SCH (09:22)
[2017-01-24] MEDS: GABAPENTIN 100 MG CAPSULE PO SCH (09:22)
--- NOTE | 2017-01-24 11:38 | NUR ---
MADDY THIS WORKER ALONG WITH [facility] VISITED PT IN ROOM, PT WAS LYING IN BED. THIS WORKER INTRODUCED SELF AND ROLE OF CASE MANAGEMENT. REVIEWED HOME HEALTH AGENCIES, PT STATED SHE WOULD LIKE [facility]. 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 PT GAVE PERMISSION FOR WORKER TO CALL MAKEDA AT [facility] ABOUT MEDICAL SUPPLIES. THIS WORKER ASKED PT HOW SHE FELT ABOUT RETURNING HOME, POSSIBLY SATURDAY. PT STATED SHE "FEELS GOOD ABOUT SATURDAY, BUT NOT ANY SOONER". THIS WORKER ENCOURAGED PT TO CALL WITH ANY QUESTIONS/CONCERNS. THIS WORKER CALLED MAKEDA AT [facility] INQUIRING ABOUT AN EXTENDED SHOWER BENCH. MAKEDA STATED HE COULD DELIVER TO PT'S HOME AND FOR THE PT TO CONTACT HIM WHEN SHE D/C. THIS WORKER WENT BACK TO ROOM AND GAVE PT MAKEDA'S CONTACT INFORMATION FOR HER MEDICAL SUPPLIES. PT WAS AGREEABLE. Addendum: 01/24/17 at 1151 by PRISCA ARGUETA Amended: Links added. Addendum: 01/24/17 at 1306 by PRISCA ARGUETA THIS WORKER REVIEWED HOME HEALTH AGENCIES WITH PT. PT STATED SHE PREVIOUSLY HAD SERVICES WITH [facility] AND WAS NOT HAPPY WITH THE AGENCY. PT STATED SHE WOULD LIKE HOME HEALTH SERVICES WITH A DIFFERENT AGENCY. PROVIDED PT WITH HOME HEALTH PROVIDER LIST, PT STATED SHE DID NOT HAVE A PREFERENCE. EXPLAINED [employer] AND DISCLOSED FINANCIAL RELATIONSHIP AND PT STATED SHE WOULD LIKE TO USE [facility].
[2017-01-24] MEDS: POLYETHYL.GLYCOL 3350 PACKET 17gm PO SCH ×2 (12:30→21:37)
[2017-01-24 15:21] VITALS: PULSE 88; RESP 16
[2017-01-24] MEDS: GABAPENTIN 300 MG CAPSULE PO SCH ×2 (15:45→21:37)
[2017-01-24] MEDS: LIDOCAINE 5% PATCH TOP PRN (15:49)
[2017-01-24 16:19] VITALS: BP 128/71; PULSE 73; RESP 18; TEMP 97.7; O2SAT 98
--- NOTE | 2017-01-24 17:00 | PNPDOC ---
Subjective Date DATE: 01/24/17 TIME: 16:42 Subjective Giselle was seen after x-rays yesterday demonstrated fracture of the proximal left fourth phalanx. She reports falling Saturday and thinks she got her foot tangled in her walker. Toe is being meghan taped and she is ambulating with minimal discomfort. She is having increased pain in her left knee with intermittent swelling. She reports having trouble with her knee prior to surgery which has worsened with increased use of her left leg postoperatively. She is pleased that her leg is getting stronger. Constipation is an ongoing problem but she denied dyspnea or difficulty urinating. Objective Vital Signs Vital signs Vital Signs Date Time Temp Pulse Resp B/P Pulse Ox O2 Delivery O2 Flow Rate FiO2 01/24/17 16:19 97.7 73 18 128/71 98 Room Air EXAM General-NAD, alert, fluent speech HEENT-conjugate gaze, conjunctiva clear, sclera anicteric Lungs-respirations nonlabored, good airflow, anterior lung espitia clear Cardiac-regular rhythm, S1-S2 Abd-soft, nontender, bowel sounds present Musculoskeletal-left knee with minimal soft tissue swelling in the suprapatellar bursa, no erythema or warmth; faint bruising between the left third and fourth toes and along the medial fifth toe. Neuro-Decreased sensation left foot-patient reports was present preoperatively Telemetry Rhythm: Sinus Rhythm Height (Feet): 5 Height (Inches): 6.00 Weight (Kilograms): 79.300 Radiology Venous Doppler negative for DVT. X-ray of left foot reviewed by myself demonstrating nondisplaced fracture of the proximal fourth phalanx, slightly oblique at the base Assessment & Plan Problems: (1) S/P lumbar laminectomy Assessment & Plan: She was admitted to [facility], and underwent the following on 01/16/[address] Ceballos: a) L4 reexploration; Exploration of spinal fusion b) L3 Plascencia procedure (complete facetectomies and pars resection) c) L2 laminectomy d) explantation of hardware, and extension posterior lumbar spinal fusion from L3-S1 with autologous morcellated local bone and BMP impregnated infused sponges with extension of instrumentation. Stitches to come out 2 weeks post op. To Follow up With Dr. Ceballos in 6-8 weeks- will need Cervical xrays and Lumbar spine x-ray series. (2) Fracture of fourth toe, left, closed Status: Acute Qualifiers: Encounter type: subsequent encounter (3) Constipation by delayed colonic transit Onset Date: ~ 01/2017 Status: Acute (4) Anemia following surgery Status: Acute (5) HTN (hypertension) Status: Chronic Qualifiers: Hypertension type: essential hypertension Qualified Codes: I10 - Essential (primary) hypertension (6) GERD (gastroesophageal reflux disease) Status: Chronic Qualifiers: Esophagitis presence: esophagitis presence not specified Qualified Codes: K21.9 - Gastro-esophageal reflux disease without esophagitis (7) Urinary incontinence Status: Chronic Qualifiers: Urinary Incontinence type: unspecified incontinence Qualified Codes: R32 - Unspecified urinary incontinence (8) Hyperglycemia Status: Resolved (9) STIVEN (obstructive sleep apnea) Status: Chronic (10) H/O drug dependence Status: Resolved (11) Seasonal allergies Status: Chronic Qualifiers: Allergic rhinitis trigger: unspecified Qualified Codes: J30.2 - Other seasonal allergic rhinitis (12) Post-operative nausea and vomiting Status: Resolved Assessment Improving post laminectomy, adequate pain control. Continue therapies. Fracture of the left fourth proximal phalanx/toe identified. Weightbearing as tolerated, meghan tape. Patient aware that she'll need follow-up x-ray in 6-8 weeks. Ongoing constipation-Colace discontinued and switched to Senokot S2 tablets twice a day, continue MiraLAX. Milk of magnesia to be given today and if no results Dulcolax suppository. Hypertension well controlled on current regimen. Postoperative anemia present, hemoglobin stable since transfer. Knee strain with increased use left leg, symptomatic management. Plan/Intensity of Service X-ray of the left foot reviewed by myself, venous Doppler reviewed-negative. Laboratory data reviewed, discussed with nursing. Code Status Full Code Hospital Course Summary Disclaimer The hospital course summary below is not to be considered part of the above Progress Note. Hospital Course Summary 01/20/17: [place]akian. - S/P lumbar lami: * Overall, Giselle appears to be doing well. Continue with rehabilitation and pain control per Dr. Turner. * Encourage participation in therapy - patient requesting to walk today. - Hyperglycemia, acute: * Present on admission with BS 118. Fasting blood sugar today 109. A1c on admission was 5.5. BGMs controlled. Continue to monitor. - Hypertension, chronic: * Blood pressure controlled. Continue lisinopril and monitor closely. - GERD: * Continue Prilosec for GERD and GI protection. - Incontinence, chronic: - STIVEN: - Constipation, acute on chronic: * Continue daily bowel motivation. * Will give 1/2 bottle mag citrate today for bowel motivation per patient request. Anticipate improved bowel movement with increased in activity and return to solid diet. * 01/21/17 Overall abdomen is feeling better now that bowels have moved last evening. Will continue with Miralax BID, and Colace BID along with multiple PRNs. In light of anemia, did review past labs. HgB from 09/2016 was 13.6. Will check Iron, Ferritin labs. Will check Stool for occult blood. She tolerating soft diet and will advance diet to regular Continue with [place] and Flexeril for pain and muscle spasms. Continue with PT/OT for ongoing therapy and improved function 1145- patient reevaluated following a phone call from nursing staff reporting that patient fell. Her left leg gave out while she was ambulating with assistance of the nurse. She fell striking her posterior head on the wall. No loss of consciousness. She is reevaluated while sitting up in her chair. She is alert and oriented. Does complain of some mild headache with a small posterior hematoma. No break in the skin. Denies having any cervical spine tenderness, however, patient does have chronic neck pain. No other injuries noted, neurovascular status intact. 01/23/17 Obtain US Doppler of LLE to rule out DVT as well as foot XR to r/o fracture Will add BRITTANY hose to assist with edema, She reports that the SCD's are uncomfortable for her. Must continue SCDs for postoperative DVT prophylaxis Blood pressure remained stable, continue on current regimen of lisinopril 10 milligrams daily. Continue with scheduled Colace and MiraLAX twice a day for ongoing bowel motivation Last hemoglobin on 02/17 was stable at 9.4. We will recheck a CBC tomorrow, 01/24 to follow anemia To better control her pain, we will change her [place] 7.5mg from PRN to scheduled 2 tabs every 4 hours. Did discuss pain management plan with Dr Turner We will continue with PT and OT to improve her strength and stability. 01/24/17-Smooth Improving post laminectomy, adequate pain control. Continue therapies. Fracture of the left fourth proximal phalanx/toe identified. Weightbearing as tolerated, meghan tape. Patient aware that she'll need follow-up x-ray in 6-8 weeks. Ongoing constipation-Colace discontinued and switched to Senokot S2 tablets twice a day, continue MiraLAX. Milk of magnesia to be given today and if no results Dulcolax suppository. Hypertension well controlled on current regimen. Postoperative anemia present, hemoglobin stable since transfer. Knee strain with increased use left leg, symptomatic management. VIDA MARTINEZ MD Jan 24, 2017 16:46
[2017-01-24] MEDS: MILK OF MAGNESIA 30 ML SUSP PO PRN (17:11)
--- NOTE | 2017-01-24 19:52 | NUR ---
SUMMARY. PT HAS BEEN PLEASANT AND COOPERATIVE WITH STAFF. PT PARTICIPATED WITH THERAPY. AMBULATES TO ALL MEALS. VISITS WITH OTHER PTS AT THE TABLE. TAKES MEDS WHOLE. SCHEDULED NORCO GIVEN. PT REPORTS PAIN 7-05/30. LIDOCAINE PATCH TO LT KNEE AT 1600. PT REPORTS HAS HELPED. MOM GIVEN AT 1700 FOR C/O CONSTIPATION. PT ABLE TO DON BACK JOE ON AND OFF SELF. SBA WITH TOILETING CARES.
[2017-01-24 20:00] VITALS: BP 140/58; PULSE 81; RESP 16; TEMP 97.8; O2SAT 97
[2017-01-24] MEDS: BISACODYL 10 MG SUPPOSITORY RECTALLY PRN (20:18)
[2017-01-24] MEDS: MELATONIN 5 MG TABLET PO SCH (21:37)
[2017-01-24] MEDS: SENNA + DOCUSATE TAB PO SCH (21:39)
--- NOTE | 2017-01-24 22:03 | PNPDOC ---
IRU Subjective Date DATE: 01/24/17 TIME: 22:00 Subjective Pt feels she is making progress, still having pain in toe. She did work with PT and OT today. IRU Objective Vital Signs Vital signs Vital Signs Date Time Temp Pulse Resp B/P Pulse Ox O2 Delivery O2 Flow Rate FiO2 01/24/17 16:19 97.7 73 18 128/71 98 Room Air Telemetry Rhythm: Sinus Rhythm Height (Feet): 5 Height (Inches): 6.00 Weight (Kilograms): 79.300 General General Appearance: Alert, Orientated x 3 Respiratory (Brief) Respiratory: FOUND: clear all espitia, equal bilaterally, NOT FOUND: rales, wheezes Cardiovascular (Brief) Cardiac: FOUND: regular rate, regular rhythm, NOT FOUND: pedal edema Capillary Refill: <2 sec Assessment & Plan Problems: (1) Myopathy Assessment & Plan: Increasing strength , cont with PT and OT plan of care. See FIMS. (2) S/P lumbar laminectomy Assessment & Plan: Managed by medical. (3) Hyperglycemia Status: Resolved Assessment & Plan: Managed by medical. Assessment Improving post laminectomy, adequate pain control. Continue therapies. Fracture of the left fourth proximal phalanx/toe identified. Weightbearing as tolerated, meghan tape. Patient aware that she'll need follow-up x-ray in 6-8 weeks. Ongoing constipation-Colace discontinued and switched to Senokot S2 tablets twice a day, continue MiraLAX. Milk of magnesia to be given today and if no results Dulcolax suppository. Hypertension well controlled on current regimen. Postoperative anemia present, hemoglobin stable since transfer. Knee strain with increased use left leg, symptomatic management. Code Status Full Code Interventions to Obtain Goals PT Treatment Plan: Therapeutic Exercise, Gait Training, Functional Activities , Patient/Family Education, Balance/Proprioception OT Treatment Plan: ADL's (basic care), Ther. Exercise for ADL's Hospital Course Summary Disclaimer The hospital course summary below is not to be considered part of the above Progress Note. Hospital Course Summary 01/20/17: Sangeeta. - S/P lumbar lami: * Overall, Giselle appears to be doing well. Continue with rehabilitation and pain control per Dr. Read. * Encourage participation in therapy - patient requesting to walk today. - Hyperglycemia, acute: * Present on admission with BS 118. Fasting blood sugar today 109. A1c on admission was 5.5. BGMs controlled. Continue to monitor. - Hypertension, chronic: * Blood pressure controlled. Continue lisinopril and monitor closely. - GERD: * Continue Prilosec for GERD and GI protection. - Incontinence, chronic: - STIVEN: - Constipation, acute on chronic: * Continue daily bowel motivation. * Will give 1/2 bottle mag citrate today for bowel motivation per patient request. Anticipate improved bowel movement with increased in activity and return to solid diet. * 01/21/17 Overall abdomen is feeling better now that bowels have moved last evening. Will continue with Miralax BID, and Colace BID along with multiple PRNs. In light of anemia, did review past labs. HgB from 09/2016 was 13.6. Will check Iron, Ferritin labs. Will check Stool for occult blood. She tolerating soft diet and will advance diet to regular Continue with [place] and Flexeril for pain and muscle spasms. Continue with PT/OT for ongoing therapy and improved function 1145- patient reevaluated following a phone call from nursing staff reporting that patient fell. Her left leg gave out while she was ambulating with assistance of the nurse. She fell striking her posterior head on the wall. No loss of consciousness. She is reevaluated while sitting up in her chair. She is alert and oriented. Does complain of some mild headache with a small posterior hematoma. No break in the skin. Denies having any cervical spine tenderness, however, patient does have chronic neck pain. No other injuries noted, neurovascular status intact. 01/23/17 Obtain US Doppler of LLE to rule out DVT as well as foot XR to r/o fracture Will add BRITTANY hose to assist with edema, She reports that the SCD's are uncomfortable for her. Must continue SCDs for postoperative DVT prophylaxis Blood pressure remained stable, continue on current regimen of lisinopril 10 milligrams daily. Continue with scheduled Colace and MiraLAX twice a day for ongoing bowel motivation Last hemoglobin on 02/17 was stable at 9.4. We will recheck a CBC tomorrow, 01/24 to follow anemia To better control her pain, we will change her [place] 7.5mg from PRN to scheduled 2 tabs every 4 hours. Did discuss pain management plan with Dr Read We will continue with PT and OT to improve her strength and stability. 01/24/17-Smooth Improving post laminectomy, adequate pain control. Continue therapies. Fracture of the left fourth proximal phalanx/toe identified. Weightbearing as tolerated, meghan tape. Patient aware that she'll need follow-up x-ray in 6-8 weeks. Ongoing constipation-Colace discontinued and switched to Senokot S2 tablets twice a day, continue MiraLAX. Milk of magnesia to be given today and if no results Dulcolax suppository. Hypertension well controlled on current regimen. Postoperative anemia present, hemoglobin stable since transfer. Knee strain with increased use left leg, symptomatic management. BERNARDA READ MD Jan 24, 2017 22:03
[2017-01-24 23:40] VITALS: PULSE 81; RESP 16
--- NOTE | 2017-01-25 01:37 | NUR ---
Chart Check 24 hour chart check completed
[2017-01-25] MEDS: CYCLOBENZAPRINE 5 MG TABLET PO PRN ×2 (03:06→23:46)
[2017-01-25] MEDS: OMEPRAZOLE 20 MG CAPSULE PO SCH (05:11)
--- NOTE | 2017-01-25 06:36 | NUR ---
Summary Patient is alert and oriented, pleasant and cooperative. She does report that her pain regimen is still not working. She has rated her pain between a 7 and 9 tonight out of 10. She has used Apricream, [place] and Flexeril to control it. She is able to get in and out of bed independently. She uses FWW, back brace and gait belt to ambulate. Her left knee has pain and julio at times so she needs close supervision. After using a suppository, she had a medium continent bowel movement. She is currently in bed with side rails up time two, bed alarm on and call light within reach.
[2017-01-25 07:14] VITALS: BP 164/78; PULSE 78; RESP 18; TEMP 96.6; O2SAT 95
[2017-01-25 07:49] VITALS: PULSE 78
[2017-01-25 08:00] VITALS: PULSE 78; RESP 18
[2017-01-25] MEDS: LISINOPRIL 10 MG TABLET PO SCH (08:53)
[2017-01-25] MEDS: FEXOFENADINE 180 MG TABLET PO SCH (08:55)
[2017-01-25] MEDS: GABAPENTIN 300 MG CAPSULE PO SCH ×3 (08:55→20:52)
[2017-01-25] MEDS: POLYETHYL.GLYCOL 3350 PACKET 17gm PO SCH ×2 (08:55→20:48)
[2017-01-25] MEDS: SENNA + DOCUSATE TAB PO SCH ×2 (09:19→20:48)
[2017-01-25] MEDS: OXYBUTYNIN XL 5 MG TABLET PO SCH (09:19)
--- NOTE | 2017-01-25 10:03 | NUR ---
CM SPOKE WITH PT. REVIEWED ANTICIPATED DC DATE BEING 01-28-17. REVIEWED THAT HOME HEALTH WILL BE ARRANGED THROUGH [facility]. REVIEWED DME: THAT WALKER WILL BE ARRANGED TO BE DELIVERED TO HER HERE AT THE HOSPITAL. DISCUSSED THAT SHE NEEDS TO CALL MAKEDA WITH [employer] ABOUT THE SHOWER CHAIR (PROVIDED HER WITH CONTACT INFO FOR MAKEDA). 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 REVIEWED HER PLAN OF CARE; SHE SIGNED THIS AND HAD NO QUESTIONS/CONCERNS ABOUT IT.
[2017-01-25] MEDS: TROLAMINE SALICYLATE 85 GM TUBE TOP PRN (11:59)
--- NOTE | 2017-01-25 14:13 | NUR ---
MADDY HAND-DELIVERED THE HOME HEALTH ORDERS TO LYDIA WITH [facility], IN ANTICIPATION OF A DC ON 01-25. FAXED RX FOR FRONT WHEELED WALKER TO [facility]. CALLED AND SPOKE WITH CAREY AT [facility]; SHE VERIFIED RECEIPT OF THE FAX AND THIS WORKER ARRANGED FOR THE WALKER TO BE DELIVERED TO PT'S ROOM HERE IRU ON Saturday.
--- NOTE | 2017-01-25 16:12 | NUR ---
CM SPOKE WITH PT ABOUT ROTP, AND SHE WAS AGREEABLE TO THIS. SHE SAID [facility]PO[facility], AND HE HAS A WALKER AND SHOWER CHAIR THAT HE CAN GIVE TO HER, AND SHE WILL CALL HIM WHEN SHE LEAVES. SHE SAID ROBERT WITH HER DOCTORS' OFFICE ([facility]) WILL PICK HER UP ON SATURDAY.
[2017-01-25 16:28] VITALS: BP 156/85; PULSE 78; RESP 16; TEMP 97.8; O2SAT 100
--- NOTE | 2017-01-25 16:48 | PNPDOC ---
JOVITA COOPER V TINSMITH HELPER 01/25/17 1637: Subjective Date DATE: 01/25/17 TIME: 16:34 Subjective Josi is seen this afternoon while resting in bed. She continues to have difficulty ongoing back pain and left leg numbness. Overall she feels that she is getting stronger with PT and can see gains in the left leg. Denies pain to Left foot / toe at fracture. No shortness of breath or chest pain. Appetite continues to improve. No difficulty with bowel movements. Objective Vital Signs Vital signs Vital Signs Date Time Temp Pulse Resp B/P Pulse Ox O2 Delivery O2 Flow Rate FiO2 01/25/17 16:28 97.8 78 16 156/85 100 Room Air Telemetry Rhythm: Sinus Rhythm Height (Feet): 5 Height (Inches): 6.00 Weight (Kilograms): 79.300 General General Appearance: Alert, Orientated x 3, Cooperative, No Acute Distress Eyes (Brief) Eyes: FOUND: EOMI ENMT (Brief) ENMT: FOUND: mucosa moist, normal dentition, NOT FOUND: pharnyx erythema Neck (Brief) Neck: FOUND: midline, NOT FOUND: adenopathy, carotid bruits, tracheal deviation Respiratory (Brief) Respiratory: FOUND: clear all espitia, equal bilaterally, NOT FOUND: wheezes Cardiovascular (Brief) Cardiac: FOUND: regular rate, regular rhythm, NOT FOUND: murmur, pedal edema Capillary Refill: <2 sec Abdomen (Brief) Abdominal: FOUND: BS normo active x4, soft, NOT FOUND: distended, tender Extremities (Brief) Extremity : Side: Left Extremity: leg (weakness) Lymphatic (Brief) Lymphatic: NOT FOUND: adenopathy Musculoskeletal (Brief) Musculoskeletal: NOT FOUND: tenderness Integumentary (Brief) Integumentary: FOUND: dry, pink, warm Neurologic (Brief) Neurological: FOUND: cranial 2-12 intact Psychiatric (Brief) Psychiatric: FOUND: alert, attentive, normal affect, oriented Assessment & Plan Problems: (1) S/P lumbar laminectomy Assessment & Plan: She was admitted to [facility], and underwent the following on 01/16/[address] Ceballos: a) L4 reexploration; Exploration of spinal fusion b) L3 Plascencia procedure (complete facetectomies and pars resection) c) L2 laminectomy d) explantation of hardware, and extension posterior lumbar spinal fusion from L3-S1 with autologous morcellated local bone and BMP impregnated infused sponges with extension of instrumentation. Stitches to come out 2 weeks post op. To Follow up With Dr. Ceballos in 6-8 weeks- will need Cervical xrays and Lumbar spine x-ray series. (2) Fracture of fourth toe, left, closed Status: Acute Qualifiers: Encounter type: subsequent encounter (3) Constipation by delayed colonic transit Onset Date: ~ 01/2017 Status: Acute (4) Anemia following surgery Status: Acute (5) HTN (hypertension) Status: Chronic Qualifiers: Hypertension type: essential hypertension Qualified Codes: I10 - Essential (primary) hypertension (6) GERD (gastroesophageal reflux disease) Status: Chronic Qualifiers: Esophagitis presence: esophagitis presence not specified Qualified Codes: K21.9 - Gastro-esophageal reflux disease without esophagitis (7) Urinary incontinence Status: Chronic Qualifiers: Urinary Incontinence type: unspecified incontinence Qualified Codes: R32 - Unspecified urinary incontinence (8) Hyperglycemia Status: Resolved (9) STIVEN (obstructive sleep apnea) Status: Chronic (10) H/O drug dependence Status: Resolved (11) Seasonal allergies Status: Chronic Qualifiers: Allergic rhinitis trigger: unspecified Qualified Codes: J30.2 - Other seasonal allergic rhinitis (12) Post-operative nausea and vomiting Status: Resolved Assessment Improving post laminectomy, adequate pain control. Continue therapies. Fracture of the left fourth proximal phalanx/toe identified. Weightbearing as tolerated, meghan tape. Patient aware that she'll need follow-up x-ray in 6-8 weeks. Ongoing constipation-Colace discontinued and switched to Senokot S2 tablets twice a day, continue MiraLAX. Milk of magnesia to be given today and if no results Dulcolax suppository. Hypertension well controlled on current regimen. Postoperative anemia present, hemoglobin stable since transfer. Knee strain with increased use left leg, symptomatic management. Plan/Intensity of Service 01/25/17 Spoke with PCP Zayda Mazariegos APRN regarding chronic pain medication use and chcf plan. Saw patient with Dr Turner. We will change [place] to 10/325mg every 6 hours and Ultram 50-100 every 6 hours in between as needed. This will decrease amount of Tylenol she relieves and continue to given more frequent pain relief. Continue with Meghan tape to left 4th and 3rd toes for acute fractures. Will need to follow up in the outpatient setting in 6-8 weeks. Continue with Senna plus for ongoing bowel motivation Continue to work with PT/OT for ongoing strengthening Code Status Full Code Hospital Course Summary Disclaimer The hospital course summary below is not to be considered part of the above Progress Note. Hospital Course Summary 01/20/17: [place]. - S/P lumbar lami: * Overall, Giselle appears to be doing well. Continue with rehabilitation and pain control per Dr. Turner. * Encourage participation in therapy - patient requesting to walk today. - Hyperglycemia, acute: * Present on admission with BS 118. Fasting blood sugar today 109. A1c on admission was 5.5. BGMs controlled. Continue to monitor. - Hypertension, chronic: * Blood pressure controlled. Continue lisinopril and monitor closely. - GERD: * Continue Prilosec for GERD and GI protection. - Incontinence, chronic: - STIVEN: - Constipation, acute on chronic: * Continue daily bowel motivation. * Will give 1/2 bottle mag citrate today for bowel motivation per patient request. Anticipate improved bowel movement with increased in activity and return to solid diet. * 01/21/17 Overall abdomen is feeling better now that bowels have moved last evening. Will continue with Miralax BID, and Colace BID along with multiple PRNs. In light of anemia, did review past labs. HgB from 09/2016 was 13.6. Will check Iron, Ferritin labs. Will check Stool for occult blood. She tolerating soft diet and will advance diet to regular Continue with [place] and Flexeril for pain and muscle spasms. Continue with PT/OT for ongoing therapy and improved function 1145- patient reevaluated following a phone call from nursing staff reporting that patient fell. Her left leg gave out while she was ambulating with assistance of the nurse. She fell striking her posterior head on the wall. No loss of consciousness. She is reevaluated while sitting up in her chair. She is alert and oriented. Does complain of some mild headache with a small posterior hematoma. No break in the skin. Denies having any cervical spine tenderness, however, patient does have chronic neck pain. No other injuries noted, neurovascular status intact. 01/23/17 Obtain US Doppler of LLE to rule out DVT as well as foot XR to r/o fracture Will add BRITTANY hose to assist with edema, She reports that the SCD's are uncomfortable for her. Must continue SCDs for postoperative DVT prophylaxis Blood pressure remained stable, continue on current regimen of lisinopril 10 milligrams daily. Continue with scheduled Colace and MiraLAX twice a day for ongoing bowel motivation Last hemoglobin on 02/17 was stable at 9.4. We will recheck a CBC tomorrow, 01/24 to follow anemia To better control her pain, we will change her Milford 7.5mg from PRN to scheduled 2 tabs every 4 hours. Did discuss pain management plan with Dr Turner We will continue with PT and OT to improve her strength and stability. 01/24/17-Smooth Improving post laminectomy, adequate pain control. Continue therapies. Fracture of the left fourth proximal phalanx/toe identified. Weightbearing as tolerated, meghan tape. Patient aware that she'll need follow-up x-ray in 6-8 weeks. Ongoing constipation-Colace discontinued and switched to Senokot S2 tablets twice a day, continue MiraLAX. Milk of magnesia to be given today and if no results Dulcolax suppository. Hypertension well controlled on current regimen. Postoperative anemia present, hemoglobin stable since transfer. Knee strain with increased use left leg, symptomatic management. 01/25/17 Spoke with PCP Zayda Mazariegos APRN regarding chronic pain medication use and chcf plan. Saw patient with Dr Turner. We will change Mil[place] to 10/325mg every 6 hours and Ultram 50-100 every 6 hours in between as needed. This will decrease amount of Tylenol she relieves and continue to given more frequent pain relief. Continue with Meghan tape to left 4th and 3rd toes for acute fractures. Will need to follow up in the outpatient setting in 6-8 weeks. Continue with Senna plus for ongoing bowel motivation Continue to work with PT/OT for ongoing strengthening VIDA MARTINEZ MD 01/25/171951: Assessment & Plan Assessment I have independently evaluated and examined this patient. I reviewed the chart, the patient's history, and the TINSMITH HELPER's documented findings as above. We discussed and formulated the assessment and plan as above with additions as below: No specific concerns, loose bowel movement earlier today. Try to select foods that will help stimulate bowel function and continuing bowel regimen and laxatives. Adequate pain control. Abdomen is benign, patient alert and cooperative. No new recommendations. JOVITA COOPER APRN Jan 25, 2017 16:37 VIDA MARTINEZ MD Jan 25, 2017 19:52
[2017-01-25] MEDS: TRAMADOL 50 MG TABLET PO PRN ×2 (17:00→22:57)
--- NOTE | 2017-01-25 19:05 | NUR ---
Shift Summary Pt is resting in bed at this time. Ambulates well with assist of 1, FWW, and gait belt; has LSO brace in place. Reported pain throughout the day was on scheduled pain medication which was changed, received Ultram 100mg at 1700 which she reported was helping. Was able to manage her own shower this morning, needed setup assist with her bottoms and able to manage her own top when getting dressed. Has been continent of bowel and bladder this shift, able to manage her own clothing and cares. Worked well with therapy today. Received Aspercreme this morning to the Lt thigh due to discomfort. When in bed the alarm is in use and call light is within reach.
[2017-01-25] MEDS: MELATONIN 5 MG TABLET PO SCH (20:48)
[2017-01-25] MEDS: LIDOCAINE 5% PATCH TOP PRN (20:50)
[2017-01-25 21:21] VITALS: PULSE 78; RESP 16
--- NOTE | 2017-01-25 22:19 | NUR ---
Chart Check 24 hour chart check completed
[2017-01-26] MEDS: ONDANSETRON 4 MG TABLET PO PRN (01:30)
[2017-01-26] MEDS ORDERED: MAG-AL + SIM LIQUID 30 ML UDC PO PRN (01:30)
[2017-01-26] MEDS: TRAMADOL 50 MG TABLET PO PRN ×3 (04:45→20:02)
[2017-01-26] MEDS: OMEPRAZOLE 20 MG CAPSULE PO SCH (04:45)
[2017-01-26 04:49] VITALS: BP 173/87; PULSE 93; TEMP 98.1; O2SAT 97
[2017-01-26] MEDS: CYCLOBENZAPRINE 5 MG TABLET PO PRN ×2 (06:30→22:11)
[2017-01-26 08:02] VITALS: BP 184/93; PULSE 95; RESP 18; TEMP 98; O2SAT 98
[2017-01-26] MEDS: FEXOFENADINE 180 MG TABLET PO SCH ×2 (08:42→08:47)
[2017-01-26] MEDS: POLYETHYL.GLYCOL 3350 PACKET 17gm PO SCH ×2 (08:42→20:07)
[2017-01-26] MEDS: GABAPENTIN 300 MG CAPSULE PO SCH ×3 (08:42→20:01)
[2017-01-26] MEDS: SENNA + DOCUSATE TAB PO SCH ×2 (08:42→20:07)
[2017-01-26] MEDS: OXYBUTYNIN XL 5 MG TABLET PO SCH (08:43)
[2017-01-26] MEDS: LISINOPRIL 10 MG TABLET PO SCH (08:43)
[2017-01-26 10:53] VITALS: BP 137/75; PULSE 76
[2017-01-26] MEDS: LIDOCAINE PATCH REMOVAL TOP PRN (12:10)
--- NOTE | 2017-01-26 15:00 | NUR ---
Status/Pain Pt. is very pleasant and A/O x3. VS's stable. Pt. is on RA. She has denied nausea and SOA. Pt. has rated pain in lower back and left leg between a 7-8/10 all shift. She reports pain is doing better today since she has been able to rest. PRN pain meds administered. Please see eMAR. Will continue to monitor.
[2017-01-26 16:11] VITALS: BP 150/79; PULSE 79; RESP 18; TEMP 98.1; O2SAT 99
--- NOTE | 2017-01-26 17:56 | NUR ---
Summary VS's stable. Pt. is an assist x1 with FWW and gait belt. Back brace applied when out of bed and sitting up. Pt.'s left leg will buckle at times. I/O adequate. Pt. is continent of bowel and bladder. Dressing to mid-lower back is noted to be C/D/I. No drainage noted. While ambulating to dinner, pt. reported pain a 5-6/10. She reports this is better then it has been in a while. PRN pain meds previously given. Please see eMAR. Will pass on report to material handler 1st shift.
[2017-01-26 19:15] VITALS: BP 159/80; PULSE 78; RESP 16; TEMP 98.1; O2SAT 99
[2017-01-26] MEDS: MELATONIN 5 MG TABLET PO SCH (20:02)
[2017-01-26 21:56] VITALS: PULSE 78; RESP 16
[2017-01-26] MEDS: TROLAMINE SALICYLATE 85 GM TUBE TOP PRN (22:55)
[2017-01-26] MEDS ORDERED: LACTAID PO PRN ×2 (23:00→23:45)
[2017-01-27] MEDS: CYCLOBENZAPRINE 5 MG TABLET PO PRN ×3 (00:41→20:21)
[2017-01-27] MEDS: TRAMADOL 50 MG TABLET PO PRN ×4 (02:12→23:32)
--- NOTE | 2017-01-27 02:41 | NUR ---
Chart Check 24 hour chart check completed
[2017-01-27 03:38] LABS: C. DIFFICILE TOXIN B NEGATIVE (NEGATIVE)
[2017-01-27] MEDS: OMEPRAZOLE 20 MG CAPSULE PO SCH (04:00)
[2017-01-27] MEDS: ONDANSETRON 4 MG TABLET PO PRN ×2 (04:27→22:29)
[2017-01-27] MEDS ORDERED: TRAMADOL 50 MG TABLET PO ONE (04:45)
--- NOTE | 2017-01-27 05:55 | NUR ---
Summary Susanne has had a hard night with pain, indigestion and diarrhea. She had a few episodes of explosive liquid diarrhea. She was continent each time. C-Diff lab was ordered and came back negative. Contact precautions initiated, then DCed with results. She requested some cereal with silk to help with the indigestion. We did not have any silk available during the shift supervisor rn. Obtained order from Dr. Adams for lactaid and she took that and used regular milk. She also took some Maalox. She reports her pain is much worse at night, and says she cant take anymore, and that the medications are not working. [place] and Ultram were alternated as often as allowed, she also had Flexaril, aspircream, and a Fentanyl patch. She took a shower, walked the [place] and sat in recliner to try to get relief. Dr. Adams contacted at about 0430. He ordered a one time dose of Ultram. No complaints since that time. She is in bed with side rails up times two, bed alarm on and call light within reach.
[2017-01-27 08:00] VITALS: BP 150/79; PULSE 99; RESP 18; TEMP 97.6; O2SAT 96
[2017-01-27] MEDS: FEXOFENADINE 180 MG TABLET PO SCH (08:41)
[2017-01-27] MEDS: OXYBUTYNIN XL 5 MG TABLET PO SCH (08:41)
[2017-01-27] MEDS: LISINOPRIL 10 MG TABLET PO SCH (08:42)
[2017-01-27] MEDS: GABAPENTIN 300 MG CAPSULE PO SCH ×3 (08:42→21:18)
[2017-01-27] MEDS: SENNA + DOCUSATE TAB PO SCH ×3 (08:42→21:00)
[2017-01-27] MEDS: POLYETHYL.GLYCOL 3350 PACKET 17gm PO SCH ×2 (08:43→21:00)
[2017-01-27] MEDS ORDERED: LOPERAMIDE 2 MG CAPSULE PO ONE (13:45)
[2017-01-27 16:22] VITALS: BP 174/81; PULSE 92; RESP 16; TEMP 98.4; O2SAT 96
--- NOTE | 2017-01-27 18:36 | NUR ---
SHIFT SUMMARY PT HAS BEEN OUT TO DINING ROOM FOR ALL MEALS. AMBULATES WITH FWW AND GAIT BELT. HAS COMPLAINED OF PAIN IN LEFT LEG FROM -07/30. PT HAS RESTED IN BED WHEN NOT OUT TO DINING ROOM.
[2017-01-27] MEDS: MELATONIN 5 MG TABLET PO SCH (21:18)
[2017-01-27] MEDS: LIDOCAINE 5% PATCH TOP PRN (21:20)
[2017-01-28] VITALS (7 sets, daily range): BP systolic 144–200; BP diastolic 69–94; PULSE 85–105; RESP 16–18; TEMP 97.4–98; O2SAT 97–100
[2017-01-28] MEDS: CYCLOBENZAPRINE 5 MG TABLET PO PRN ×4 (01:58→20:55)
[2017-01-28] MEDS: TROLAMINE SALICYLATE 85 GM TUBE TOP PRN (03:10)
[2017-01-28] MEDS ORDERED: HYDROMORPHONE 2mg/ml INJECTION IV PRN (03:45)
[2017-01-28] MEDS: HYDROMORPHONE 2mg/ml INJECTION IV PRN ×2 (04:30→06:41)
[2017-01-28] MEDS: ONDANSETRON 4 MG TABLET PO PRN (04:55)
[2017-01-28] MEDS: TRAMADOL 50 MG TABLET PO PRN ×3 (05:27→21:08)
--- NOTE | 2017-01-28 05:53 | NUR ---
Chart Check 24 hour chart check completed
--- NOTE | 2017-01-28 05:56 | NUR ---
Summary Patient has had another hard night with inability to get pain under control. All available medications have been utilized to manage the pain, but this has been unsuccessful. Pt has taken four showers for temporary relief. We have taken walks down the [place], used blankets to soften her bed, and used ice. Dr Adams called twice. A seabrooks was ordered, but this only made it worse. This AM Dilaudid IV was ordered PRN, IV inserted into left wrist. This has still been unsuccessful in relieving pain. She has not had any sleep so far tonight. She is currently in chair with alarm on and call light within reach.
[2017-01-28] MEDS: OMEPRAZOLE 20 MG CAPSULE PO SCH (06:27)
[2017-01-28 08:17] LABS: BASOPHILS % (AUTO) 0.4 % (0-2); EOSINOPHILS # (AUTO) 0.1 T/MM3 (0-0.5); EOSINOPHILS % (AUTO) 1.3 % (0-4); HCT - HEMATOCRIT 34.1 % (36-46); HGB - HEMOGLOBIN 11.5 GM/DL (12-16); IMMATURE GRANULOCYTE # (AUTO) 0.04 T/MM3 (0.00-0.03); IMMATURE GRANULOCYTE % (AUTO) 0.4 % (0.0-0.5); LYMPHOCYTES # (AUTO) 2.3 T/MM3 (1-4.8); LYMPHOCYTES % (AUTO) 21.9 % (23-45); MEAN CORPUSCULAR HGB CONC(MCHC 33.7 GM/DL (31-37); MEAN PLATELET VOLUME 7.6 UM3 (9.4-12.4); MONOCYTES # (AUTO) 0.6 T/MM3 (0-0.8); MONOCYTES % (AUTO) 5.9 % (0-9.0); NEUTROPHILS #(AUTO)-ABSOLUTE 7.2 T/MM3 (1.8-7.7); NEUTROPHILS % (AUTO) 70.1 % (33-66); RED BLOOD COUNT 3.83 M/MM3 (4.00-5.20); WBC - WHITE BLOOD COUNT 10.3 T/MM3 (4.5-11.0)
[2017-01-28 08:28] LABS: ANION GAP 12 MEQ/L (5-15); BUN/CREATININE RATIO 10 RATIO (6-26); CALCIUM 9.4 MG/DL (8.4-10.2); CHLORIDE 92 MEQ/L (98-107); CO2 - CARBON DIOXIDE 28 MEQ/L (22-30); CREATININE 0.6 MG/DL (0.7-1.2); GLOMERULAR FILTRATION RATE 101; GLUCOSE 133 MG/DL (65-110); POTASSIUM 4.2 MEQ/L (3.6-5); SODIUM 132 MEQ/L (134-144)
[2017-01-28] MEDS: POLYETHYL.GLYCOL 3350 PACKET 17gm PO SCH ×2 (08:53→20:53)
[2017-01-28] MEDS: SENNA + DOCUSATE TAB PO SCH ×2 (08:53→20:54)
[2017-01-28] MEDS: LISINOPRIL 10 MG TABLET PO SCH (08:54)
[2017-01-28] MEDS: OXYBUTYNIN XL 5 MG TABLET PO SCH (08:55)
[2017-01-28] MEDS: GABAPENTIN 300 MG CAPSULE PO SCH ×3 (08:55→20:54)
[2017-01-28] MEDS: FEXOFENADINE 180 MG TABLET PO SCH (08:55)
--- NOTE | 2017-01-28 09:46 | PNPDOC ---
Subjective Date DATE: 01/28/17 TIME: 09:19 Subjective Josi is seen this morning acutely following a phone call from the nurses. She had a difficulty night with increased back pain that radiates down the left leg. She denies that these symptoms are new, however only worse than previous days. Reports unable to get comfortable overnight with prarspinal muscle spasms radiating down left leg. Denies shortness of breath, nausea, or GI complaints. No peritoneal anesthesia. BP elevated this morning 200/94. Objective Vital Signs Vital signs Vital Signs Date Time Temp Pulse Resp B/P Pulse Ox O2 Delivery O2 Flow Rate FiO2 01/28/17 07:44 97.7 85 18 200/94 97 Room Air Telemetry Rhythm: Sinus Rhythm Height (Feet): 5 Height (Inches): 6.00 Weight (Kilograms): 76.900 General General Appearance: Alert, Orientated x 3, Cooperative, No Acute Distress Eyes (Brief) Eyes: FOUND: EOMI ENMT (Brief) ENMT: FOUND: mucosa moist, normal dentition, NOT FOUND: pharnyx erythema Neck (Brief) Neck: FOUND: midline, NOT FOUND: adenopathy, carotid bruits, tracheal deviation Respiratory (Brief) Respiratory: FOUND: clear all espitia, equal bilaterally, NOT FOUND: wheezes Cardiovascular (Brief) Cardiac: FOUND: regular rate, regular rhythm, NOT FOUND: murmur, pedal edema Capillary Refill: <2 sec Abdomen (Brief) Abdominal: FOUND: BS normo active x4, soft, NOT FOUND: distended, tender Lymphatic (Brief) Lymphatic: NOT FOUND: adenopathy Musculoskeletal (Brief) Musculoskeletal: FOUND: tenderness (Lumbar back, paraspinal pain) Integumentary (Brief) Integumentary: FOUND: dry, pink, warm Neurologic (Brief) Neurological: FOUND: cranial 2-12 intact Psychiatric (Brief) Psychiatric: FOUND: alert, attentive, normal affect, oriented Laboratory Laboratory Laboratory Tests 01/28/17 08:05 Laboratory Tests 01/28/17 08:05 Assessment & Plan Problems: (1) S/P lumbar laminectomy Status: Acute Assessment & Plan: She was admitted to [facility], and underwent the following on 01/16/[address] Ceballos: a) L4 reexploration; Exploration of spinal fusion b) L3 Plascencia procedure (complete facetectomies and pars resection) c) L2 laminectomy d) explantation of hardware, and extension posterior lumbar spinal fusion from L3-S1 with autologous morcellated local bone and BMP impregnated infused sponges with extension of instrumentation. Stitches to come out 2 weeks post op. To Follow up With Dr. Ceballos in 6-8 weeks- will need Cervical xrays and Lumbar spine x-ray series. (2) Fracture of fourth toe, left, closed Status: Acute Qualifiers: Encounter type: subsequent encounter (3) Constipation by delayed colonic transit Onset Date: ~ 01/2017 Status: Acute (4) Anemia following surgery Status: Acute (5) HTN (hypertension) Status: Chronic Qualifiers: Hypertension type: essential hypertension Qualified Codes: I10 - Essential (primary) hypertension (6) GERD (gastroesophageal reflux disease) Status: Chronic Qualifiers: Esophagitis presence: esophagitis presence not specified Qualified Codes: K21.9 - Gastro-esophageal reflux disease without esophagitis (7) Urinary incontinence Status: Chronic Qualifiers: Urinary Incontinence type: unspecified incontinence Qualified Codes: R32 - Unspecified urinary incontinence (8) Hyperglycemia Status: Resolved (9) STIVEN (obstructive sleep apnea) Status: Chronic (10) H/O drug dependence Status: Resolved (11) Seasonal allergies Status: Chronic Qualifiers: Allergic rhinitis trigger: unspecified Qualified Codes: J30.2 - Other seasonal allergic rhinitis (12) Post-operative nausea and vomiting Status: Resolved (13) Thrombocytosis Status: Acute (14) Hyponatremia Plan/Intensity of Service 01/28/17 Given acute change in pain will continue with IV Dilaudid for breakthrough pain. Scheduled Parnell 10 every 6 hours with tramadol 50-100 milligrams every 6 hours in between. Continue with scheduled Flexeril 3 times a day for muscle spasms. Add Lidoderm patch to paraspinal lumbar back. She is also using a Lidoderm patch to the left knee. Did obtain a CBC and BMP this morning. Platelet count was found to be significantly elevated at 932. Suspect this is a reactive thrombocytosis postoperatively. Does not appear to be an acute infectious process going, as incision remains without redness or drainage, dressing dry and intact. WBC count remains normal, hemoglobin remained stable. Sodium is slightly down, suspect patient is mildly dehydrated. Will give her 500 ML bolus of IV fluids now over the next 2 hours Will also obtain a CRP Monitor blood pressure as this was elevated this morning, likely secondary to acute pain If pain and symptoms does not improve today. May need to consider MRI of the lumbar spine Continue with Senna plus for ongoing bowel motivation Continue to work with PT/OT for ongoing strengthening 1000- Patient re-evaluated at this time she is up in the wheelchair working with therapy. She reports that her pain has improved. Discussed current plan of care. At this time will hold off on further imaging at this time. Will need to discuss ongoing pain management further with Code Status Full Code Hospital Course Summary Disclaimer The hospital course summary below is not to be considered part of the above Progress Note. Hospital Course Summary 01/20/17: [place]. - S/P lumbar lami: * Overall, Giselle appears to be doing well. Continue with rehabilitation and pain control per Dr. Turner. * Encourage participation in therapy - patient requesting to walk today. - Hyperglycemia, acute: * Present on admission with BS 118. Fasting blood sugar today 109. A1c on admission was 5.5. BGMs controlled. Continue to monitor. - Hypertension, chronic: * Blood pressure controlled. Continue lisinopril and monitor closely. - GERD: * Continue Prilosec for GERD and GI protection. - Incontinence, chronic: - STIVEN: - Constipation, acute on chronic: * Continue daily bowel motivation. * Will give 1/2 bottle mag citrate today for bowel motivation per patient request. Anticipate improved bowel movement with increased in activity and return to solid diet. * 01/21/17 Overall abdomen is feeling better now that bowels have moved last evening. Will continue with Miralax BID, and Colace BID along with multiple PRNs. In light of anemia, did review past labs. HgB from 09/2016 was 13.6. Will check Iron, Ferritin labs. Will check Stool for occult blood. She tolerating soft diet and will advance diet to regular Continue with Parnell and Flexeril for pain and muscle spasms. Continue with PT/OT for ongoing therapy and improved function 1145- patient reevaluated following a phone call from nursing staff reporting that patient fell. Her left leg gave out while she was ambulating with assistance of the nurse. She fell striking her posterior head on the wall. No loss of consciousness. She is reevaluated while sitting up in her chair. She is alert and oriented. Does complain of some mild headache with a small posterior hematoma. No break in the skin. Denies having any cervical spine tenderness, however, patient does have chronic neck pain. No other injuries noted, neurovascular status intact. 01/23/17 Obtain US Doppler of LLE to rule out DVT as well as foot XR to r/o fracture Will add BRITTANY hose to assist with edema, She reports that the SCD's are uncomfortable for her. Must continue SCDs for postoperative DVT prophylaxis Blood pressure remained stable, continue on current regimen of lisinopril 10 milligrams daily. Continue with scheduled Colace and MiraLAX twice a day for ongoing bowel motivation Last hemoglobin on 02/17 was stable at 9.4. We will recheck a CBC tomorrow, 01/24 to follow anemia To better control her pain, we will change her Parnell 7.5mg from PRN to scheduled 2 tabs every 4 hours. Did discuss pain management plan with Dr Turner We will continue with PT and OT to improve her strength and stability. 01/24/17-Smooth Improving post laminectomy, adequate pain control. Continue therapies. Fracture of the left fourth proximal phalanx/toe identified. Weightbearing as tolerated, meghan tape. Patient aware that she'll need follow-up x-ray in 6-8 weeks. Ongoing constipation-Colace discontinued and switched to Senokot S2 tablets twice a day, continue MiraLAX. Milk of magnesia to be given today and if no results Dulcolax suppository. Hypertension well controlled on current regimen. Postoperative anemia present, hemoglobin stable since transfer. Knee strain with increased use left leg, symptomatic management. 01/25/17 Spoke with PCP Zayda Mazariegos APRN regarding chronic pain medication use and watermaster plan. Saw patient with Dr Turner. We will change Parnell to 10/325mg every 6 hours and Ultram 50-100 every 6 hours in between as needed. This will decrease amount of Tylenol she relieves and continue to given more frequent pain relief. Continue with Meghan tape to left 4th and 3rd toes for acute fractures. Will need to follow up in the outpatient setting in 6-8 weeks. Continue with Senna plus for ongoing bowel motivation Continue to work with PT/OT for ongoing strengthening 01/28/17 Given acute change in pain will continue with IV Dilaudid for breakthrough pain. Scheduled Parnell 10 every 6 hours with tramadol 50-100 milligrams every 6 hours in between. Continue with scheduled Flexeril 3 times a day for muscle spasms. Add Lidoderm patch to paraspinal lumbar back. She is also using a Lidoderm patch to the left knee. Did obtain a CBC and BMP this morning. Platelet count was found to be significantly elevated at 932. Suspect this is a reactive thrombocytosis postoperatively. Does not appear to be an acute infectious process going, as incision remains without redness or drainage, dressing dry and intact. WBC count remains normal, hemoglobin remained stable. Sodium is slightly down, suspect patient is mildly dehydrated. Will give her 500 ML bolus of IV fluids now over the next 2 hours Will also obtain a CRP Monitor blood pressure as this was elevated this morning, likely secondary to acute pain If pain and symptoms does not improve today. May need to consider MRI of the lumbar spine Continue with Senna plus for ongoing bowel motivation Continue to work with PT/OT for ongoing strengthening 1000- Patient re-evaluated at this time she is up in the wheelchair working with therapy. She reports that her pain has improved. Discussed current plan of care. At this time will hold off on further imaging at this time. Will need to discuss ongoing pain management further with JOVITA Patel APRN Jan 28, 2017 09:28
[2017-01-28] MEDS: NORMAL SALINE 500 ML IV SCH ×2 (09:52→11:15)
[2017-01-28] MEDS: LIDOCAINE 5% PATCH TD SCH (11:29)
[2017-01-28] MEDS ORDERED: LIDOCAINE 5% PATCH TD PRN (12:00)
--- NOTE | 2017-01-28 13:08 | PDIRUTEAM ---
Multidisciplinary Team Meeting Nursing Hx Incontinence: Yes Bladder Goal: 6 Modified [place] Yeh Y/N: No Bladder Continent or Incontine: Continent Incontinent Product Used: Patient's Own Underwear Number of Times Incontinent of: 0 Cleaning Ability-Bladder: 7+ Complete Austin Bowel Goal: 7+ Complete [place] Colostomy Y/N: No Bowel Incontinent/Continent: Continent Bowel Number of Accidents: 0 Number of times Incontinent of: 0 Cleaning Ability-Bowel: 7+ Complete [place] Toileting Ability: 5 Supervision/Setup Vital Signs Vital Signs Date Time Temp Pulse Resp B/P Pulse Ox O2 Delivery O2 Flow Rate FiO2 01/28/17 09:38 105 156/87 01/28/17 07:44 97.7 18 97 Room Air Current Medications Current Medications Medications (Trade) Dose Ordered Sig/Marisela Route PRN Reason Start Time Stop Time Status Last Admin Dose Admin Acetaminophen/ Hydrocodone Bitart ([place] 7.5/325) PRN PAIN Q4H PRN PO PAIN 01/18/17 16:15 01/23/17 14:52 DC 01/23/17 14:06 Bisacodyl (Dulcolax) 10 mg DAILY PRN RECTALLY CONSTIPATION 01/18/17 18:00 01/24/17 20:18 Acetaminophen (Tylenol Regular Strength) 650 mg Q4H PRN PO PAIN 01/18/17 18:15 01/27/17 21:27 Docusate Sodium (Colace) 100 mg BID PO 01/18/17 21:00 01/24/17 17:01 DC 01/24/17 09:21 Fexofenadine HCl (Valeria) 180 mg DAILY PO 01/19/17 09:00 01/28/17 08:55 Magnesium Hydroxide (Mom) 30 ml DAILY PRN PO CONSTIPATION 01/18/17 18:15 01/24/17 17:11 Omeprazole (Prilosec) 20 mg ACB PO 01/19/17 06:30 01/28/17 06:27 Ondansetron HCl (Zofran) 4 mg Q6HR PRN PO NAUSEA 01/18/17 18:15 01/28/17 04:55 Oxybutynin Chloride (Ditropan Xl) 15 mg DAILY PO 01/19/17 09:00 01/28/17 08:55 Lisinopril (Prinivil) 10 mg DAILY PO 01/19/17 12:15 01/28/17 08:54 Cyclobenzaprine HCl (Flexeril) 5 mg TID PRN PO 01/19/17 19:30 01/28/17 05:36 Polyethylene Glycol (Miralax) 17 g DAILY PO 01/20/17 09:00 01/20/17 19:54 DC 01/20/17 08:38 Gabapentin (Neurontin) 100 mg TID PO 01/19/17 21:00 01/24/17 14:49 DC 01/24/17 09:22 Polyethylene Glycol (Miralax) 17 g BID PO 01/20/17 21:00 01/26/17 08:42 Melatonin (Melatonin) 5 mg HS PO 01/22/17 22:00 01/27/17 21:18 Acetaminophen/ Hydrocodone Bitart ([place] 7.5/325) PRN PAIN Q4H PO 01/23/17 16:15 01/25/17 16:35 DC 01/25/17 13:12 Lidocaine (Lidoderm) 1 patch DAILY PRN TOP 01/23/17 22:30 01/28/17 09:33 DC 01/27/17 21:20 Trolamine Salicylate (Aspercreme) 1 applic PRN PRN TOP 01/23/17 22:30 01/28/17 03:10 Lidocaine (Lidoderm Patch Removal) 1 removal 2100 PRN TOP 01/24/17 06:30 01/28/17 09:33 DC 01/26/17 12:10 Gabapentin (Neurontin) 300 mg TID PO 01/24/17 15:00 01/28/17 08:55 Senna/Docusate Sodium (Senna Plus) 2 tab BID PO 01/24/17 21:00 01/26/17 08:42 Acetaminophen/ Hydrocodone Bitart ([place] 10/325) 1 tab Q6H PRN PO PAIN 01/25/17 16:45 01/28/17 07:39 Tramadol HCl (Ultram) 1-2 tabs Q6H PRN PO 01/25/17 16:45 01/28/17 12:15 Al Hydroxide/Mg Hydroxide (Maalox) 30 ml Q3H PRN PO INDIGESTION 01/26/17 01:30 01/27/17 01:29 Lactase (Lactaid) 1 tab PRN PRN PO 01/26/17 23:45 01/26/17 23:46 Hydromorphone HCl 0.5 mg 0.5 mg Q2H PRN IV 01/28/17 06:30 01/28/17 06:41 Sodium Chloride (NS) 500 ml @ 250 mls/hr Q2H IV 01/28/17 09:15 01/28/17 11:56 DC 01/28/17 09:52 Lidocaine (Lidoderm) 1 patch DAILY TD 01/28/17 11:30 01/28/17 11:29 Comments pain from fall and surgery. Physical Therapy Bed Transfer Ability: 6 Modified [place] Bed Transfer Assistance Needed: 1 Person Chair Transfer Ability: 6 Modified [place] Chair Transfer Assistance Need: 1 Person Overall Toilet / Commode Trans: 5 Supervision/Setup Ambulation Ability: 4 Minimal Assistance Ambulation Assistance Needed: 1 Person Ambulation Distance: 400 Comments Refusing PT today due to pain. Occupational Therapy Grooming Ability: 5 Supervision/Setup Bathing Ability: 5 Supervision/Setup Upper Body Dressing Ability: 5 Supervision/Setup Lower Body Dressing Ability: 5 Supervision/Setup Lower Body Dressing Assistance: 1 Person Dressing-Lower FIM Score Reaso: including shoes/socks using AE Toileting Assistance Needed: 1 Person Toileting FIM Score Reason: suppository insurted by nurse, who assisted with pants while on bed. Comments Educating on back precautions. Pain with twisting, despite explaining precautions. Care Plan Condition at time of discharge: Fair IRU Discharge Disposition: Home, self care Interventions/Goals Barriers to d/c:Pain,left knee weakness, platelet issue today. Will discuss with medical to ensure pt is cleared on d/c. BERNARDA READ MD Jan 28, 2017 13:03
--- NOTE | 2017-01-28 16:02 | NUR ---
MADDY THIS WORKER MET WITH PT ON THIS DATE. THIS WORKER REVIEWED DISCHARGE PLAN AT THIS TIME. PT REPORTED THAT SHE HAS ALL THAT SHE IS NEEDING AT THIS TIME WITH THE EXCEPTION OF A FEW ITEMS THAT SHE IS PREPARED TO OBTAIN. PT REPORTED THAT SHE WOULD LIKE TO UTILIZE HOME HEALTH SERVICES WELL. PT REPORTED HAVING SOME NEIGHBORS ALSO THAT CAN HELP "LOOK IN ON HER." PT DECLINED ANY ADDITIONAL NEEDS AT THIS TIME. THIS WORKER PROVIDED CONTACT INFORMATION FOR THIS PT AND ENCOURAGED TO CONTACT THIS WORKER WITH ANY NEEDS.
[2017-01-28 16:42] LABS: BASOPHILS % (AUTO) 0.2 % (0-2); EOSINOPHILS # (AUTO) 0.1 T/MM3 (0-0.5); EOSINOPHILS % (AUTO) 1.1 % (0-4); HGB - HEMOGLOBIN 11.2 GM/DL (12-16); IMMATURE GRANULOCYTE # (AUTO) 0.05 T/MM3 (0.00-0.03); IMMATURE GRANULOCYTE % (AUTO) 0.5 % (0.0-0.5); LYMPHOCYTES # (AUTO) 2.4 T/MM3 (1-4.8); LYMPHOCYTES % (AUTO) 23.7 % (23-45); MEAN CORPUSCULAR HGB 29.6 UUG (26-34); MEAN CORPUSCULAR HGB CONC(MCHC 32.9 GM/DL (31-37); MEAN CORPUSCULAR VOLUME 89.7 UM3 (80-100); MEAN PLATELET VOLUME 7.6 UM3 (9.4-12.4); MONOCYTES # (AUTO) 0.6 T/MM3 (0-0.8); MONOCYTES % (AUTO) 6.2 % (0-9.0); NEUTROPHILS #(AUTO)-ABSOLUTE 6.8 T/MM3 (1.8-7.7); NEUTROPHILS % (AUTO) 68.3 % (33-66); RED BLOOD COUNT 3.79 M/MM3 (4.00-5.20)
--- NOTE | 2017-01-28 19:17 | NUR ---
Shift Summary Pt is resting in bed at this time. Ambulates well with assist of 1, FWW, and gait belt; has LSO brace in place. Reported pain throughout the day, received [place] 10 (1) at 0739 and 1409, Ultram 100mg at 1215, and Flexeril 5mg at 1622, which helped with her pain. Has been continent of bowel and bladder this shift, able to manage her own clothing and cares. Worked well with therapy today. Ate moderately for meals, ambulated to the dining room, did not need assist with her tray. Received lidoderm patch this morning to the Lt lower back. When in bed the alarm is in use and call light is within reach.
[2017-01-28] MEDS: MELATONIN 5 MG TABLET PO SCH (20:55)
[2017-01-28] MEDS: LIDOCAINE PATCH REMOVAL TOP SCH (20:56)
[2017-01-29] VITALS (8 sets, daily range): BP systolic 106–155; BP diastolic 64–85; PULSE 82–100; RESP 16–20; TEMP 97.3–97.9; O2SAT 93–100
[2017-01-29] MEDS: TRAMADOL 50 MG TABLET PO PRN ×3 (03:03→23:21)
[2017-01-29] MEDS: CYCLOBENZAPRINE 5 MG TABLET PO PRN ×2 (04:15→20:21)
[2017-01-29] MEDS: OMEPRAZOLE 20 MG CAPSULE PO SCH (05:08)
[2017-01-29 05:29] LABS: BASOPHILS % (AUTO) 0.2 % (0-2); EOSINOPHILS # (AUTO) 0.2 T/MM3 (0-0.5); EOSINOPHILS % (AUTO) 1.7 % (0-4); HCT - HEMATOCRIT 34.5 % (36-46); HGB - HEMOGLOBIN 11.7 GM/DL (12-16); IMMATURE GRANULOCYTE # (AUTO) 0.05 T/MM3 (0.00-0.03); IMMATURE GRANULOCYTE % (AUTO) 0.5 % (0.0-0.5); LYMPHOCYTES # (AUTO) 2.6 T/MM3 (1-4.8); LYMPHOCYTES % (AUTO) 27.3 % (23-45); MEAN CORPUSCULAR HGB 30.1 UUG (26-34); MEAN CORPUSCULAR HGB CONC(MCHC 33.9 GM/DL (31-37); MEAN CORPUSCULAR VOLUME 88.7 UM3 (80-100); MEAN PLATELET VOLUME 7.7 UM3 (9.4-12.4); MONOCYTES # (AUTO) 0.7 T/MM3 (0-0.8); NEUTROPHILS % (AUTO) 63.3 % (33-66); RED BLOOD COUNT 3.89 M/MM3 (4.00-5.20); WBC - WHITE BLOOD COUNT 9.4 T/MM3 (4.5-11.0)
--- NOTE | 2017-01-29 07:41 | NUR ---
Summary Pt has ambulated well with back brace, gb, and fww. Pt has had recurring complaint of pain through the night. Pt utilized Prn pain meds of [place] 10, Tramadol, Flexeril. Pt states only the [place] helped and "it wasn't enough". Pt inquired about her platelet count, and expressed anxiety rt going home. Pt with staff bathing at this time.
[2017-01-29] MEDS: OXYBUTYNIN XL 5 MG TABLET PO SCH (08:39)
[2017-01-29] MEDS: FEXOFENADINE 180 MG TABLET PO SCH (08:39)
[2017-01-29] MEDS: LISINOPRIL 10 MG TABLET PO SCH (08:39)
[2017-01-29] MEDS: SENNA + DOCUSATE TAB PO SCH ×2 (08:40→20:22)
[2017-01-29] MEDS: ASPIRIN 81 MG CHEWABLE TABLET PO SCH (08:40)
[2017-01-29] MEDS: GABAPENTIN 300 MG CAPSULE PO SCH ×3 (08:40→20:22)
[2017-01-29] MEDS: POLYETHYL.GLYCOL 3350 PACKET 17gm PO SCH ×2 (08:41→20:21)
[2017-01-29 08:55] LABS: ANION GAP 12 MEQ/L (5-15); BUN/CREATININE RATIO 12 RATIO (6-26); CALCIUM 9.3 MG/DL (8.4-10.2); CHLORIDE 96 MEQ/L (98-107); CO2 - CARBON DIOXIDE 26 MEQ/L (22-30); CREATININE 0.6 MG/DL (0.7-1.2); GLOMERULAR FILTRATION RATE 101; GLUCOSE 118 MG/DL (65-110); POTASSIUM 3.6 MEQ/L (3.6-5); SODIUM 134 MEQ/L (134-144)
[2017-01-29] MEDS ORDERED: LIDOCAINE 5% PATCH TD SCH (09:00)
[2017-01-29] MEDS: LIDOCAINE 5% PATCH TD SCH (09:00)
--- NOTE | 2017-01-29 09:45 | NUR ---
IV IRON CONSULT: Dx: Acute anemia 2* to blood loss: Ms Garcia has lost an undetermined amount of blood since spinal surgery and remains anemic. Hgb on 01/21= 9.4 g/dl (today 11.7) Total calculated dose = 1475mg Will give 25mg IV test dose. Watch VS q15min x 1 hr. (Watching for anaphylaxis, respiratory distress, hives) If no reaction, will give remainder of dose = 1450mg Watch VS q1h during infusion. Thank you.
[2017-01-29] MEDS ORDERED: IRON DEXTRAN 100mg/2ml INJECTION IV ONE (10:00)
--- NOTE | 2017-01-29 11:11 | PNPDOC ---
Subjective Date DATE: 01/29/17 TIME: 10:58 Subjective Josi is seen today in follow up while eating breakfast. She states that overall she is feeling better however she does state that she is concerned about her "pain management". Denies chest pain or shortness of breath. Voiding without difficulty and bowels last moved on 01/27. Discussed continued thrombocytosis and anemia. Objective Vital Signs Vital signs Vital Signs Date Time Temp Pulse Resp B/P Pulse Ox O2 Delivery O2 Flow Rate FiO2 01/29/17 10:34 86 124/69 94 Room Air 01/29/17 08:00 97.3 18 Telemetry Rhythm: Sinus Rhythm Height (Feet): 5 Height (Inches): 6.00 Weight (Kilograms): 76.900 General General Appearance: Alert, Orientated x 3, Cooperative, No Acute Distress Eyes (Brief) Eyes: FOUND: EOMI ENMT (Brief) ENMT: FOUND: mucosa moist, normal dentition, NOT FOUND: pharnyx erythema Neck (Brief) Neck: FOUND: midline, NOT FOUND: adenopathy, carotid bruits, tracheal deviation Respiratory (Brief) Respiratory: FOUND: clear all espitia, equal bilaterally, NOT FOUND: wheezes Cardiovascular (Brief) Cardiac: FOUND: regular rate, regular rhythm, NOT FOUND: murmur, pedal edema Capillary Refill: <2 sec Abdomen (Brief) Abdominal: FOUND: BS normo active x4, soft, NOT FOUND: distended, tender Lymphatic (Brief) Lymphatic: NOT FOUND: adenopathy Musculoskeletal (Brief) Musculoskeletal: FOUND: tenderness (lumbar back pain) Integumentary (Brief) Integumentary: FOUND: dry, pink, warm Neurologic (Brief) Neurological: FOUND: cranial 2-12 intact Psychiatric (Brief) Psychiatric: FOUND: alert, attentive, normal affect, oriented Laboratory Laboratory Laboratory Tests 01/28/17 08:05 01/29/17 08:18 Laboratory Tests 01/28/17 08:05 01/28/17 16:20 01/29/17 05:00 Assessment & Plan Problems: (1) S/P lumbar laminectomy Status: Acute Assessment & Plan: She was admitted to [facility], and underwent the following on 01/16/[address] Ceballos: a) L4 reexploration; Exploration of spinal fusion b) L3 Plascencia procedure (complete facetectomies and pars resection) c) L2 laminectomy d) explantation of hardware, and extension posterior lumbar spinal fusion from L3-S1 with autologous morcellated local bone and BMP impregnated infused sponges with extension of instrumentation. Stitches to come out 2 weeks post op. To Follow up With Dr. Ceballos in 6-8 weeks- will need Cervical xrays and Lumbar spine x-ray series. (2) Fracture of fourth toe, left, closed Status: Acute Qualifiers: Encounter type: subsequent encounter (3) Constipation by delayed colonic transit Onset Date: ~ 01/2017 Status: Acute (4) Anemia following surgery Status: Acute (5) HTN (hypertension) Status: Chronic Qualifiers: Hypertension type: essential hypertension Qualified Codes: I10 - Essential (primary) hypertension (6) GERD (gastroesophageal reflux disease) Status: Chronic Qualifiers: Esophagitis presence: esophagitis presence not specified Qualified Codes: K21.9 - Gastro-esophageal reflux disease without esophagitis (7) Urinary incontinence Status: Chronic Qualifiers: Urinary Incontinence type: unspecified incontinence Qualified Codes: R32 - Unspecified urinary incontinence (8) Hyperglycemia Status: Resolved (9) STIVEN (obstructive sleep apnea) Status: Chronic (10) H/O drug dependence Status: Resolved (11) Seasonal allergies Status: Chronic Qualifiers: Allergic rhinitis trigger: unspecified Qualified Codes: J30.2 - Other seasonal allergic rhinitis (12) Post-operative nausea and vomiting Status: Resolved (13) Thrombocytosis Status: Acute (14) Hyponatremia Plan/Intensity of Service 01/29/17 Overall Josi states that she is feeling better however wants to discuss pain medication regimen. Request to be on something stronger than [place] and Ultram. Will discuss further with Dr Turner. At this time we will continue current pain regimen, which is [place] 10/325 every 4 hours with tramadol as needed every 6 hours between dosing. Continue with Flexeril 3 times a day and Lidoderm patch. Did speak with hematology briefly regarding thrombocytosis. Likely a reactive response given that, platelet count on admission was normal. May also be affected by anemia. Given low iron level, will start IV iron today. Will start on ASA 81mg daily. Will recheck CBC tomorrow morning. She may need outpatient mythology evaluation if platelet count does not decrease. Will evaluate lumbar incision tomorrow as this is been 14 days. Surgery will likely be able to remove cuco. Case discussed with Dr David and Dr Turner Code Status Full Code Hospital Course Summary Disclaimer The hospital course summary below is not to be considered part of the above Progress Note. Hospital Course Summary 01/20/17: Sangeeta. - S/P lumbar lami: * Overall, Giselle appears to be doing well. Continue with rehabilitation and pain control per Dr. Turner. * Encourage participation in therapy - patient requesting to walk today. - Hyperglycemia, acute: * Present on admission with BS 118. Fasting blood sugar today 109. A1c on admission was 5.5. BGMs controlled. Continue to monitor. - Hypertension, chronic: * Blood pressure controlled. Continue lisinopril and monitor closely. - GERD: * Continue Prilosec for GERD and GI protection. - Incontinence, chronic: - STIVEN: - Constipation, acute on chronic: * Continue daily bowel motivation. * Will give 1/2 bottle mag citrate today for bowel motivation per patient request. Anticipate improved bowel movement with increased in activity and return to solid diet. * 01/21/17 Overall abdomen is feeling better now that bowels have moved last evening. Will continue with Miralax BID, and Colace BID along with multiple PRNs. In light of anemia, did review past labs. HgB from 09/2016 was 13.6. Will check Iron, Ferritin labs. Will check Stool for occult blood. She tolerating soft diet and will advance diet to regular Continue with [place] and Flexeril for pain and muscle spasms. Continue with PT/OT for ongoing therapy and improved function 1145- patient reevaluated following a phone call from nursing staff reporting that patient fell. Her left leg gave out while she was ambulating with assistance of the nurse. She fell striking her posterior head on the wall. No loss of consciousness. She is reevaluated while sitting up in her chair. She is alert and oriented. Does complain of some mild headache with a small posterior hematoma. No break in the skin. Denies having any cervical spine tenderness, however, patient does have chronic neck pain. No other injuries noted, neurovascular status intact. 01/23/17 Obtain US Doppler of LLE to rule out DVT as well as foot XR to r/o fracture Will add BRITTANY hose to assist with edema, She reports that the SCD's are uncomfortable for her. Must continue SCDs for postoperative DVT prophylaxis Blood pressure remained stable, continue on current regimen of lisinopril 10 milligrams daily. Continue with scheduled Colace and MiraLAX twice a day for ongoing bowel motivation Last hemoglobin on 02/17 was stable at 9.4. We will recheck a CBC tomorrow, 01/24 to follow anemia To better control her pain, we will change her [place] 7.5mg from PRN to scheduled 2 tabs every 4 hours. Did discuss pain management plan with Dr Turner We will continue with PT and OT to improve her strength and stability. 01/24/17-Smooth Improving post laminectomy, adequate pain control. Continue therapies. Fracture of the left fourth proximal phalanx/toe identified. Weightbearing as tolerated, meghan tape. Patient aware that she'll need follow-up x-ray in 6-8 weeks. Ongoing constipation-Colace discontinued and switched to Senokot S2 tablets twice a day, continue MiraLAX. Milk of magnesia to be given today and if no results Dulcolax suppository. Hypertension well controlled on current regimen. Postoperative anemia present, hemoglobin stable since transfer. Knee strain with increased use left leg, symptomatic management. 01/25/17 Spoke with PCP Zayda Mazariegos APRN regarding chronic pain medication use and mcc plan. Saw patient with Dr Turner. We will change [place] to 10/325mg every 6 hours and Ultram 50-100 every 6 hours in between as needed. This will decrease amount of Tylenol she relieves and continue to given more frequent pain relief. Continue with Meghan tape to left 4th and 3rd toes for acute fractures. Will need to follow up in the outpatient setting in 6-8 weeks. Continue with Senna plus for ongoing bowel motivation Continue to work with PT/OT for ongoing strengthening 01/28/17 Given acute change in pain will continue with IV Dilaudid for breakthrough pain. Scheduled [place] 10 every 6 hours with tramadol 50-100 milligrams every 6 hours in between. Continue with scheduled Flexeril 3 times a day for muscle spasms. Add Lidoderm patch to paraspinal lumbar back. She is also using a Lidoderm patch to the left knee. Did obtain a CBC and BMP this morning. Platelet count was found to be significantly elevated at 932. Suspect this is a reactive thrombocytosis postoperatively. Does not appear to be an acute infectious process going, as incision remains without redness or drainage, dressing dry and intact. WBC count remains normal, hemoglobin remained stable. Sodium is slightly down, suspect patient is mildly dehydrated. Will give her 500 ML bolus of IV fluids now over the next 2 hours Will also obtain a CRP Monitor blood pressure as this was elevated this morning, likely secondary to acute pain If pain and symptoms does not improve today. May need to consider MRI of the lumbar spine Continue with Senna plus for ongoing bowel motivation Continue to work with PT/OT for ongoing strengthening 1000- Patient re-evaluated at this time she is up in the wheelchair working with therapy. She reports that her pain has improved. Discussed current plan of care. At this time will hold off on further imaging at this time. Will need to discuss ongoing pain management further with 01/29/17 Overall Josi states that she is feeling better however wants to discuss pain medication regimen. Request to be on something stronger than [place] and Ultram. Will discuss further with Dr Turner. At this time we will continue current pain regimen, which is [place] 10/325 every 4 hours with tramadol as needed every 6 hours between dosing. Continue with Flexeril 3 times a day and Lidoderm patch. Did speak with hematology briefly regarding thrombocytosis. Likely a reactive response given that, platelet count on admission was normal. May also be affected by anemia. Given low iron level, will start IV iron today. Will start on ASA 81mg daily. Will recheck CBC tomorrow morning. She may need outpatient mythology evaluation if platelet count does not decrease. Will evaluate lumbar incision tomorrow as this is been 14 days. Surgery will likely be able to remove cuco. Case discussed with Dr David and JOVITA Aguirre APRN Jan 29, 2017 11:06
[2017-01-29] MEDS ORDERED: NORMAL SALINE IV SCH (11:15)
[2017-01-29] MEDS ORDERED: IRON DEXTRAN IV SCH (11:15)
--- NOTE | 2017-01-29 14:36 | PNPDOC ---
IRU Subjective Date DATE: 01/28/17 TIME: 1600 Patient seen 01/28/2017 at approximately 1600, note is entered today Subjective Patient has been up with physical therapy. Feeling better than yesterday after allotted was ordered overnight to be given IV. IRU Objective Vital Signs Vital signs Vital Signs Date Time Temp Pulse Resp B/P Pulse Ox O2 Delivery O2 Flow Rate FiO2 01/29/17 11:04 88 132/69 98 Room Air 01/29/17 08:00 97.3 18 Telemetry Rhythm: Sinus Rhythm Height (Feet): 5 Height (Inches): 6.00 Weight (Kilograms): 76.900 General General Appearance: Alert, Orientated x 3 Respiratory (Brief) Respiratory: FOUND: clear all espitia, equal bilaterally Cardiovascular (Brief) Cardiac: FOUND: regular rate, regular rhythm Capillary Refill: <2 sec Laboratory Laboratory Laboratory Tests Test 01/28/17 08:05 01/28/17 16:20 01/29/17 05:00 01/29/17 08:18 White Blood Count 10.3T/MM3 10.0T/MM3 9.4T/MM3 Red Blood Count 3.83M/MM3 3.79M/MM3 3.89M/MM3 Hemoglobin 11.5GM/DL 11.2GM/DL 11.7GM/DL Hematocrit 34.1% 34.0% 34.5% Mean Corpuscular Volume 89.0UM3 89.7UM3 88.7UM3 Mean Corpuscular Hemoglobin 30.0UUG 29.6UUG 30.1UUG Mean Corpuscular Hemoglobin Concent 33.7GM/DL 32.9GM/DL 33.9GM/DL RDW Standard Deviation 38.8FL 39.8FL 39.2FL Platelet Count 932T/MM3 952T/MM3 999T/MM3 Mean Platelet Volume 7.6UM3 7.6UM3 7.7UM3 Immature Granulocyte % (Auto) 0.4% 0.5% 0.5% Neutrophils (%) (Auto) 70.1% 68.3% 63.3% Lymphocytes (%) (Auto) 21.9% 23.7% 27.3% Monocytes (%) (Auto) 5.9% 6.2% 7.0% Eosinophils (%) (Auto) 1.3% 1.1% 1.7% Basophils (%) (Auto) 0.4% 0.2% 0.2% Absolute Immature Granulocyte (auto 0.04T/MM3 0.05T/MM3 0.05T/MM3 Absolute Neutrophils (auto) 7.2T/MM3 6.8T/MM3 6.0T/MM3 Absolute Lymphocytes (auto) 2.3T/MM3 2.4T/MM3 2.6T/MM3 Absolute Monocytes (auto) 0.6T/MM3 0.6T/MM3 0.7T/MM3 Absolute Eosinophils (auto) 0.1T/MM3 0.1T/MM3 0.2T/MM3 Absolute Basophils (auto) 0.0T/MM3 0.0T/MM3 0.0T/MM3 Turbidity < 20 < 20 Sodium Level 132MEQ/L 134MEQ/L Potassium Level 4.2MEQ/L 3.6MEQ/L Chloride Level 92MEQ/L 96MEQ/L Carbon Dioxide Level 28MEQ/L 26MEQ/L Anion Gap 12MEQ/L 12MEQ/L Blood Urea Nitrogen 6.0MG/DL 7.0MG/DL Creatinine 0.6MG/DL 0.6MG/DL Glomerular Filtration Rate Calc 101 101 BUN/Creatinine Ratio 10RATIO 12RATIO Glucose Level 133MG/DL 118MG/DL Calculated Osmolality 255MOSM/KG 257MOSM/KG Calcium Level 9.4MG/DL 9.3MG/DL Icterus Index < 2 < 2 C-Reactive Protein 17.4MG/L Chemistry Specimen Hemolysis < 15 < 15 Assessment & Plan Problems: (1) Myopathy Assessment & Plan: Working with physical therapy and occupational therapy, continue with current plan of care. Please see the note from team meeting (2) S/P lumbar laminectomy Status: Acute Assessment & Plan: Patient having increased pain, with increased platelet count . Medical is working on evaluation of increased platelet count, overnight hospitalist was contacted and patient was given more pain medication, being started on Dilaudid IV as needed. I would like to decrease this, discussed with medical and they are in agreement. I met with the patient and did agree to give her an increased dose of Posey, changing from every 6 hour dose to every 4 hour dosing and continuing with the 10 mg tablet. She can also continue the tramadol, but we will stop the Dilaudid. (3) Hyperglycemia Status: Resolved Assessment & Plan: Medical to manage Code Status Full Code Interventions to Obtain Goals PT Treatment Plan: Therapeutic Exercise, Gait Training, Functional Activities , Patient/Family Education, Balance/Proprioception OT Treatment Plan: ADL's (basic care), Ther. Exercise for ADL's Hospital Course Summary Disclaimer The hospital course summary below is not to be considered part of the above Progress Note. Hospital Course Summary 01/20/17: Mirjoleen. - S/P lumbar lami: * Overall, Giselle appears to be doing well. Continue with rehabilitation and pain control per Dr. Read. * Encourage participation in therapy - patient requesting to walk today. - Hyperglycemia, acute: * Present on admission with BS 118. Fasting blood sugar today 109. A1c on admission was 5.5. BGMs controlled. Continue to monitor. - Hypertension, chronic: * Blood pressure controlled. Continue lisinopril and monitor closely. - GERD: * Continue Prilosec for GERD and GI protection. - Incontinence, chronic: - STIVEN: - Constipation, acute on chronic: * Continue daily bowel motivation. * Will give 1/2 bottle mag citrate today for bowel motivation per patient request. Anticipate improved bowel movement with increased in activity and return to solid diet. * 01/21/17 Overall abdomen is feeling better now that bowels have moved last evening. Will continue with Miralax BID, and Colace BID along with multiple PRNs. In light of anemia, did review past labs. HgB from 09/2016 was 13.6. Will check Iron, Ferritin labs. Will check Stool for occult blood. She tolerating soft diet and will advance diet to regular Continue with Posey and Flexeril for pain and muscle spasms. Continue with PT/OT for ongoing therapy and improved function 1145- patient reevaluated following a phone call from nursing staff reporting that patient fell. Her left leg gave out while she was ambulating with assistance of the nurse. She fell striking her posterior head on the wall. No loss of consciousness. She is reevaluated while sitting up in her chair. She is alert and oriented. Does complain of some mild headache with a small posterior hematoma. No break in the skin. Denies having any cervical spine tenderness, however, patient does have chronic neck pain. No other injuries noted, neurovascular status intact. 01/23/17 Obtain US Doppler of LLE to rule out DVT as well as foot XR to r/o fracture Will add BRITTANY hose to assist with edema, She reports that the SCD's are uncomfortable for her. Must continue SCDs for postoperative DVT prophylaxis Blood pressure remained stable, continue on current regimen of lisinopril 10 milligrams daily. Continue with scheduled Colace and MiraLAX twice a day for ongoing bowel motivation Last hemoglobin on 02/17 was stable at 9.4. We will recheck a CBC tomorrow, 01/24 to follow anemia To better control her pain, we will change her Posey 7.5mg from PRN to scheduled 2 tabs every 4 hours. Did discuss pain management plan with Dr Read We will continue with PT and OT to improve her strength and stability. 01/24/17-Smooth Improving post laminectomy, adequate pain control. Continue therapies. Fracture of the left fourth proximal phalanx/toe identified. Weightbearing as tolerated, meghan tape. Patient aware that she'll need follow-up x-ray in 6-8 weeks. Ongoing constipation-Colace discontinued and switched to Senokot S2 tablets twice a day, continue MiraLAX. Milk of magnesia to be given today and if no results Dulcolax suppository. Hypertension well controlled on current regimen. Postoperative anemia present, hemoglobin stable since transfer. Knee strain with increased use left leg, symptomatic management. 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 Saw patient with Dr Read. We will change Posey to 10/325mg every 6 hours and Ultram 50-100 every 6 hours in between as needed. This will decrease amount of Tylenol she relieves and continue to given more frequent pain relief. Continue with Meghan tape to left 4th and 3rd toes for acute fractures. Will need to follow up in the outpatient setting in 6-8 weeks. Continue with Senna plus for ongoing bowel motivation Continue to work with PT/OT for ongoing strengthening 01/28/17 Given acute change in pain will continue with IV Dilaudid for breakthrough pain. Scheduled Posey 10 every 6 hours with tramadol 50-100 milligrams every 6 hours in between. Continue with scheduled Flexeril 3 times a day for muscle spasms. Add Lidoderm patch to paraspinal lumbar back. She is also using a Lidoderm patch to the left knee. Did obtain a CBC and BMP this morning. Platelet count was found to be significantly elevated at 932. Suspect this is a reactive thrombocytosis postoperatively. Does not appear to be an acute infectious process going, as incision remains without redness or drainage, dressing dry and intact. WBC count remains normal, hemoglobin remained stable. Sodium is slightly down, suspect patient is mildly dehydrated. Will give her 500 ML bolus of IV fluids now over the next 2 hours Will also obtain a CRP Monitor blood pressure as this was elevated this morning, likely secondary to acute pain If pain and symptoms does not improve today. May need to consider MRI of the lumbar spine Continue with [employer] plus for ongoing bowel motivation Continue to work with PT/OT for ongoing strengthening 1000- Patient re-evaluated at this time she is up in the wheelchair working with therapy. She reports that her pain has improved. Discussed current plan of care. At this time will hold off on further imaging at this time. Will need to discuss ongoing pain management further with 01/29/17 Overall Josi states that she is feeling better however wants to discuss pain medication regimen. Request to be on something stronger than Posey and Ultram. Will discuss further with Dr Read. At this time we will continue current pain regimen, which is Posey 10/325 every 4 hours with tramadol as needed every 6 hours between dosing. Continue with Flexeril 3 times a day and Lidoderm patch. Did speak with hematology briefly regarding thrombocytosis. Likely a reactive response given that, platelet count on admission was normal. May also be affected by anemia. Given low iron level, will start IV iron today. Will start on ASA 81mg daily. Will recheck CBC tomorrow morning. She may need outpatient mythology evaluation if platelet count does not decrease. Will evaluate lumbar incision tomorrow as this is been 14 days. Surgery will likely be able to remove cuco. Case discussed with Dr David and Dr Johnny READ,BERNARDA Pace MD Jan 29, 2017 14:36
--- NOTE | 2017-01-29 14:52 | PNPDOC ---
IRU Subjective Date DATE: 01/29/17 TIME: 14:42 Subjective Patient stating that her pain is increased now that the Dilaudid has been stopped and she feels that changing from [place] to Percocet might be a good idea. She did work with physical therapy this morning. IRU Objective Vital Signs Vital signs Vital Signs Date Time Temp Pulse Resp B/P Pulse Ox O2 Delivery O2 Flow Rate FiO2 01/29/17 11:04 88 132/69 98 Room Air 01/29/17 08:00 97.3 18 Telemetry Rhythm: Sinus Rhythm Height (Feet): 5 Height (Inches): 6.00 Weight (Kilograms): 76.900 Respiratory (Brief) Respiratory: FOUND: clear all espitia, equal bilaterally Cardiovascular (Brief) Cardiac: FOUND: regular rate, regular rhythm Capillary Refill: <2 sec Laboratory Laboratory Laboratory Tests Test 01/28/17 08:05 01/28/17 16:20 01/29/17 05:00 01/29/17 08:18 White Blood Count 10.3T/MM3 10.0T/MM3 9.4T/MM3 Red Blood Count 3.83M/MM3 3.79M/MM3 3.89M/MM3 Hemoglobin 11.5GM/DL 11.2GM/DL 11.7GM/DL Hematocrit 34.1% 34.0% 34.5% Mean Corpuscular Volume 89.0UM3 89.7UM3 88.7UM3 Mean Corpuscular Hemoglobin 30.0UUG 29.6UUG 30.1UUG Mean Corpuscular Hemoglobin Concent 33.7GM/DL 32.9GM/DL 33.9GM/DL RDW Standard Deviation 38.8FL 39.8FL 39.2FL Platelet Count 932T/MM3 952T/MM3 999T/MM3 Mean Platelet Volume 7.6UM3 7.6UM3 7.7UM3 Immature Granulocyte % (Auto) 0.4% 0.5% 0.5% Neutrophils (%) (Auto) 70.1% 68.3% 63.3% Lymphocytes (%) (Auto) 21.9% 23.7% 27.3% Monocytes (%) (Auto) 5.9% 6.2% 7.0% Eosinophils (%) (Auto) 1.3% 1.1% 1.7% Basophils (%) (Auto) 0.4% 0.2% 0.2% Absolute Immature Granulocyte (auto 0.04T/MM3 0.05T/MM3 0.05T/MM3 Absolute Neutrophils (auto) 7.2T/MM3 6.8T/MM3 6.0T/MM3 Absolute Lymphocytes (auto) 2.3T/MM3 2.4T/MM3 2.6T/MM3 Absolute Monocytes (auto) 0.6T/MM3 0.6T/MM3 0.7T/MM3 Absolute Eosinophils (auto) 0.1T/MM3 0.1T/MM3 0.2T/MM3 Absolute Basophils (auto) 0.0T/MM3 0.0T/MM3 0.0T/MM3 Turbidity < 20 < 20 Sodium Level 132MEQ/L 134MEQ/L Potassium Level 4.2MEQ/L 3.6MEQ/L Chloride Level 92MEQ/L 96MEQ/L Carbon Dioxide Level 28MEQ/L 26MEQ/L Anion Gap 12MEQ/L 12MEQ/L Blood Urea Nitrogen 6.0MG/DL 7.0MG/DL Creatinine 0.6MG/DL 0.6MG/DL Glomerular Filtration Rate Calc 101 101 BUN/Creatinine Ratio 10RATIO 12RATIO Glucose Level 133MG/DL 118MG/DL Calculated Osmolality 255MOSM/KG 257MOSM/KG Calcium Level 9.4MG/DL 9.3MG/DL Icterus Index < 2 < 2 C-Reactive Protein 17.4MG/L Chemistry Specimen Hemolysis < 15 < 15 Assessment & Plan Problems: (1) Myopathy Assessment & Plan: Patient did work with physical therapy this morning, we'll have her continue. We are working up medical issues pending discharge and will continue physical therapy treatments and occupational therapy treatments until then. (2) S/P lumbar laminectomy Status: Acute Assessment & Plan: Pain is still an issue. I do not think we are going to get her pain is well-controlled a she would like. I'm not interested in changing from [place] to Percocet, I think that will open another issue. Therefore we will continue with her currently increased dose of [place] and tramadol together, and discharge her to follow-up with her primary care provider and pain clinic. (3) Hyperglycemia Status: Resolved Assessment & Plan: Medical to manage (4) Thrombocytosis Status: Acute Assessment & Plan: Medical is working her up and following platelets. They did discuss this with hematology this morning. DVT Prophylaxis: SCD'S Code Status Full Code Interventions to Obtain Goals PT Treatment Plan: Therapeutic Exercise, Gait Training, Functional Activities , Patient/Family Education, Balance/Proprioception OT Treatment Plan: ADL's (basic care), Ther. Exercise for ADL's Hospital Course Summary Disclaimer The hospital course summary below is not to be considered part of the above Progress Note. Hospital Course Summary 01/20/17: Mirakian. - S/P lumbar lami: * Overall, Giselle appears to be doing well. Continue with rehabilitation and pain control per Dr. Read. * Encourage participation in therapy - patient requesting to walk today. - Hyperglycemia, acute: * Present on admission with BS 118. Fasting blood sugar today 109. A1c on admission was 5.5. BGMs controlled. Continue to monitor. - Hypertension, chronic: * Blood pressure controlled. Continue lisinopril and monitor closely. - GERD: * Continue Prilosec for GERD and GI protection. - Incontinence, chronic: - STIVEN: - Constipation, acute on chronic: * Continue daily bowel motivation. * Will give 1/2 bottle mag citrate today for bowel motivation per patient request. Anticipate improved bowel movement with increased in activity and return to solid diet. * 01/21/17 Overall abdomen is feeling better now that bowels have moved last evening. Will continue with Miralax BID, and Colace BID along with multiple PRNs. In light of anemia, did review past labs. HgB from 09/2016 was 13.6. Will check Iron, Ferritin labs. Will check Stool for occult blood. She tolerating soft diet and will advance diet to regular Continue with [place] and Flexeril for pain and muscle spasms. Continue with PT/OT for ongoing therapy and improved function 1145- patient reevaluated following a phone call from nursing staff reporting that patient fell. Her left leg gave out while she was ambulating with assistance of the nurse. She fell striking her posterior head on the wall. No loss of consciousness. She is reevaluated while sitting up in her chair. She is alert and oriented. Does complain of some mild headache with a small posterior hematoma. No break in the skin. Denies having any cervical spine tenderness, however, patient does have chronic neck pain. No other injuries noted, neurovascular status intact. 01/23/17 Obtain US Doppler of LLE to rule out DVT as well as foot XR to r/o fracture Will add BRITTANY hose to assist with edema, She reports that the SCD's are uncomfortable for her. Must continue SCDs for postoperative DVT prophylaxis Blood pressure remained stable, continue on current regimen of lisinopril 10 milligrams daily. Continue with scheduled Colace and MiraLAX twice a day for ongoing bowel motivation Last hemoglobin on 02/17 was stable at 9.4. We will recheck a CBC tomorrow, 01/24 to follow anemia To better control her pain, we will change her [place] 7.5mg from PRN to scheduled 2 tabs every 4 hours. Did discuss pain management plan with Dr Read We will continue with PT and OT to improve her strength and stability. 01/24/17-Smooth Improving post laminectomy, adequate pain control. Continue therapies. Fracture of the left fourth proximal phalanx/toe identified. Weightbearing as tolerated, meghan tape. Patient aware that she'll need follow-up x-ray in 6-8 weeks. Ongoing constipation-Colace discontinued and switched to Senokot S2 tablets twice a day, continue MiraLAX. Milk of magnesia to be given today and if no results Dulcolax suppository. Hypertension well controlled on current regimen. Postoperative anemia present, hemoglobin stable since transfer. Knee strain with increased use left leg, symptomatic management. 01/25/17 Spoke with PCP Zayda Mazariegos APRN regarding chronic pain medication use and mcc plan. Saw patient with Dr Read. We will change [place] to 10/325mg every 6 hours and Ultram 50-100 every 6 hours in between as needed. This will decrease amount of Tylenol she relieves and continue to given more frequent pain relief. Continue with Meghan tape to left 4th and 3rd toes for acute fractures. Will need to follow up in the outpatient setting in 6-8 weeks. Continue with Senna plus for ongoing bowel motivation Continue to work with PT/OT for ongoing strengthening 01/28/17 Given acute change in pain will continue with IV Dilaudid for breakthrough pain. Scheduled [place] 10 every 6 hours with tramadol 50-100 milligrams every 6 hours in between. Continue with scheduled Flexeril 3 times a day for muscle spasms. Add Lidoderm patch to paraspinal lumbar back. She is also using a Lidoderm patch to the left knee. Did obtain a CBC and BMP this morning. Platelet count was found to be significantly elevated at 932. Suspect this is a reactive thrombocytosis postoperatively. Does not appear to be an acute infectious process going, as incision remains without redness or drainage, dressing dry and intact. WBC count remains normal, hemoglobin remained stable. Sodium is slightly down, suspect patient is mildly dehydrated. Will give her 500 ML bolus of IV fluids now over the next 2 hours Will also obtain a CRP Monitor blood pressure as this was elevated this morning, likely secondary to acute pain If pain and symptoms does not improve today. May need to consider MRI of the lumbar spine Continue with Proximic for ongoing bowel motivation Continue to work with PT/OT for ongoing strengthening 1000- Patient re-evaluated at this time she is up in the wheelchair working with therapy. She reports that her pain has improved. Discussed current plan of care. At this time will hold off on further imaging at this time. Will need to discuss ongoing pain management further with 01/29/17 Overall Josi states that she is feeling better however wants to discuss pain medication regimen. Request to be on something stronger than [place] and Ultram. Will discuss further with Dr Read. At this time we will continue current pain regimen, which is [place] 10/325 every 4 hours with tramadol as needed every 6 hours between dosing. Continue with Flexeril 3 times a day and Lidoderm patch. Did speak with hematology briefly regarding thrombocytosis. Likely a reactive response given that, platelet count on admission was normal. May also be affected by anemia. Given low iron level, will start IV iron today. Will start on ASA 81mg daily. Will recheck CBC tomorrow morning. She may need outpatient mythology evaluation if platelet count does not decrease. Will evaluate lumbar incision tomorrow as this is been 14 days. Surgery will likely be able to remove cuco. Case discussed with Dr David and Dr Johnny READ,BERNARDA Pace MD Jan 29, 2017 14:45
--- NOTE | 2017-01-29 17:16 | NUR ---
CM ANTICIPATED DC DATE IS 01-30-17. THIS WORKER SPOKE WITH PT ABOUT THIS. SHE WAS AGREEABLE TO THIS. REVIEWED IRU PLAN OF CARE; SHE SIGNED THIS AND HAD NO QUESTIONS/NEEDS ABOUT THIS.
--- NOTE | 2017-01-29 19:45 | NUR ---
SHIFT SUMMARY PT HAS BEEN OUT TO DINING ROOM FOR MEALS. HAS WORKED WITH THERAPY. AMBULATES WITH FWW AND GAIT BELT. WEARS A BACK BRACE WHEN UP. PT HAS REQUESTED PRN PAIN MEDS WHEN THEY HAVE BEEN AVAILABLE. PT'S IV SITE WAS MOVED WHEN BECAME INFILTRATED DURING AN IV ADMINISTRATION OF IRON. PT HAS RESTED IN BED BETWEEN THERAPIES.
[2017-01-29] MEDS: LIDOCAINE PATCH REMOVAL TOP SCH (20:23)
[2017-01-29] MEDS: MELATONIN 5 MG TABLET PO SCH (20:23)
[2017-01-30] MEDS: TROLAMINE SALICYLATE 85 GM TUBE TOP PRN (02:19)
[2017-01-30] MEDS: TRAMADOL 50 MG TABLET PO PRN ×2 (05:53→15:13)
[2017-01-30] MEDS: OMEPRAZOLE 20 MG CAPSULE PO SCH (05:53)
--- NOTE | 2017-01-30 06:32 | NUR ---
Summary Pt has had complaint of pain from -07/30, PRN pain meds given at regular, ordered, intervals, when requested by pt. Pt has repositioned through the night. Pt refused SCD's and cold therapy. Pt states her pain is "fine" at this time. Pt is in bed resting at this time.
[2017-01-30 07:20] VITALS: BP 158/83; PULSE 90; RESP 16; TEMP 95.8; O2SAT 95
[2017-01-30 07:30] VITALS: PULSE 90; RESP 16
[2017-01-30 08:26] LABS: BASOPHILS % (AUTO) 0.2 % (0-2); EOSINOPHILS # (AUTO) 0.1 T/MM3 (0-0.5); EOSINOPHILS % (AUTO) 1.3 % (0-4); HCT - HEMATOCRIT 34.9 % (36-46); HGB - HEMOGLOBIN 11.6 GM/DL (12-16); IMMATURE GRANULOCYTE # (AUTO) 0.04 T/MM3 (0.00-0.03); IMMATURE GRANULOCYTE % (AUTO) 0.5 % (0.0-0.5); LYMPHOCYTES # (AUTO) 2.3 T/MM3 (1-4.8); LYMPHOCYTES % (AUTO) 27.7 % (23-45); MEAN CORPUSCULAR HGB 30.1 UUG (26-34); MEAN CORPUSCULAR HGB CONC(MCHC 33.2 GM/DL (31-37); MEAN CORPUSCULAR VOLUME 90.4 UM3 (80-100); MEAN PLATELET VOLUME 7.6 UM3 (9.4-12.4); MONOCYTES # (AUTO) 0.5 T/MM3 (0-0.8); MONOCYTES % (AUTO) 5.6 % (0-9.0); NEUTROPHILS #(AUTO)-ABSOLUTE 5.4 T/MM3 (1.8-7.7); NEUTROPHILS % (AUTO) 64.7 % (33-66); RED BLOOD COUNT 3.86 M/MM3 (4.00-5.20); WBC - WHITE BLOOD COUNT 8.4 T/MM3 (4.5-11.0)
[2017-01-30] MEDS: POLYETHYL.GLYCOL 3350 PACKET 17gm PO SCH (08:47)
[2017-01-30] MEDS: LIDOCAINE 5% PATCH TD SCH (08:47)
[2017-01-30] MEDS: LISINOPRIL 10 MG TABLET PO SCH (08:48)
[2017-01-30] MEDS: GABAPENTIN 300 MG CAPSULE PO SCH ×2 (08:48→15:13)
[2017-01-30] MEDS: ASPIRIN 81 MG CHEWABLE TABLET PO SCH (08:48)
[2017-01-30] MEDS: OXYBUTYNIN XL 5 MG TABLET PO SCH (08:48)
[2017-01-30] MEDS: FEXOFENADINE 180 MG TABLET PO SCH (08:49)
[2017-01-30] MEDS: SENNA + DOCUSATE TAB PO SCH (08:49)
[2017-01-30] MEDS ORDERED: HYDR-4078 PO (10:16)
[2017-01-30] MEDS ORDERED: CYCL5TAB PO (10:16)
[2017-01-30] MEDS ORDERED: GABA300C PO (10:16)
[2017-01-30] MEDS ORDERED: LIDO700A3 TOP (10:16)
[2017-01-30] MEDS ORDERED: LISI10TA7 PO (10:16)
[2017-01-30] MEDS ORDERED: ASPI81TA2 PO (10:16)
[2017-01-30] MEDS ORDERED: TRAM50TA53 PO (10:16)
[2017-01-30] MEDS ORDERED: POLY17PO18 PO (10:16)
[2017-01-30] MEDS ORDERED: FERR324T4 PO (10:23)
--- NOTE | 2017-01-30 13:33 | PNPDOC ---
Subjective Date DATE: 01/30/17 TIME: 13:25 Subjective Josi is seen today sitting in her room. She is feeling well today and reports her back pain is well controlled. She is looking forward to being discharged home. Today chappell 2 weeks since surgery. Incision is healing well without evidence of erythema or drainage. Will have nursing staff remove cuco prior to discharge. Just ongoing pain control as well as thrombocytosis. Platelet count is decreasing. Patient will need to have this followed carefully by primary care and possibly hematology. She denies having chest pain, shortness of breath or GI complaints. Objective Vital Signs Vital signs Vital Signs Date Time Temp Pulse Resp B/P Pulse Ox O2 Delivery O2 Flow Rate FiO2 01/30/17 07:30 90 16 01/30/17 07:20 95.8 158/83 95 Room Air Telemetry Rhythm: Sinus Rhythm Height (Feet): 5 Height (Inches): 6.00 Weight (Kilograms): 76.900 General General Appearance: Alert, Orientated x 3, Cooperative, No Acute Distress Eyes (Brief) Eyes: FOUND: EOMI ENMT (Brief) ENMT: FOUND: mucosa moist, normal dentition, NOT FOUND: pharnyx erythema Neck (Brief) Neck: FOUND: midline, NOT FOUND: adenopathy, carotid bruits, tracheal deviation Respiratory (Brief) Respiratory: FOUND: clear all espitia, equal bilaterally, NOT FOUND: wheezes Cardiovascular (Brief) Cardiac: FOUND: regular rate, regular rhythm, NOT FOUND: murmur, pedal edema Capillary Refill: <2 sec Abdomen (Brief) Abdominal: FOUND: BS normo active x4, soft, NOT FOUND: distended, tender Lymphatic (Brief) Lymphatic: NOT FOUND: adenopathy Musculoskeletal (Brief) Musculoskeletal: FOUND: tenderness (lumbar spine.) Integumentary (Brief) Integumentary: FOUND: dry, pink, warm Comments Lumbar incision is healing well without evidence of acute infection. No erythema or drainage. Neurologic (Brief) Neurological: FOUND: cranial 2-12 intact Psychiatric (Brief) Psychiatric: FOUND: alert, attentive, normal affect, oriented Laboratory Laboratory Laboratory Tests 01/29/17 08:18 Laboratory Tests 01/28/17 16:20 01/29/17 05:00 01/30/17 08:15 Assessment & Plan Problems: (1) S/P lumbar laminectomy Status: Acute Assessment & Plan: She was admitted to [facility], and underwent the following on 01/16/[address] Ceballos: a) L4 reexploration; Exploration of spinal fusion b) L3 Plascencia procedure (complete facetectomies and pars resection) c) L2 laminectomy d) explantation of hardware, and extension posterior lumbar spinal fusion from L3-S1 with autologous morcellated local bone and BMP impregnated infused sponges with extension of instrumentation. Stitches to come out 2 weeks post op. To Follow up With Dr. Ceballos in 6-8 weeks- will need Cervical xrays and Lumbar spine x-ray series. (2) Fracture of fourth toe, left, closed Status: Acute Qualifiers: Encounter type: subsequent encounter (3) Constipation by delayed colonic transit Onset Date: ~ 01/2017 Status: Acute (4) Anemia following surgery Status: Acute (5) HTN (hypertension) Status: Chronic Qualifiers: Hypertension type: essential hypertension Qualified Codes: I10 - Essential (primary) hypertension (6) GERD (gastroesophageal reflux disease) Status: Chronic Qualifiers: Esophagitis presence: esophagitis presence not specified Qualified Codes: K21.9 - Gastro-esophageal reflux disease without esophagitis (7) Urinary incontinence Status: Chronic Qualifiers: Urinary Incontinence type: unspecified incontinence Qualified Codes: R32 - Unspecified urinary incontinence (8) Hyperglycemia Status: Resolved (9) STIVEN (obstructive sleep apnea) Status: Chronic (10) H/O drug dependence Status: Resolved (11) Seasonal allergies Status: Chronic Qualifiers: Allergic rhinitis trigger: unspecified Qualified Codes: J30.2 - Other seasonal allergic rhinitis (12) Post-operative nausea and vomiting Status: Resolved (13) Thrombocytosis Status: Acute (14) Hyponatremia Plan/Intensity of Service 01/30/17 Overall, Giselle is doing well. Her pain appears to be well controlled on Pratts 10 every 4 hours with foraminal as needed between doses. We will continue on this regimen at time of discharge. Also continue with Flexeril 3 times a day as needed for muscle spasms and Neurontin for neuropathic pain. We did discuss in detail regarding her thrombocytosis and the likelihood this is a reactive response. Platelet count is trending down. Will have patient take oral iron supplementation twice a day. Will speak with her primary care provider Zayda MICHAEL at [facility] for close follow-up. Patient may require further hematology workup in the outpatient setting. Will also send patient on baby aspirin 81 milligrams daily. Code Status Full Code Hospital Course Summary Disclaimer The hospital course summary below is not to be considered part of the above Progress Note. Hospital Course Summary 01/20/17: Sangeeta. - S/P lumbar lami: * Overall, Giselle appears to be doing well. Continue with rehabilitation and pain control per Dr. Turner. * Encourage participation in therapy - patient requesting to walk today. - Hyperglycemia, acute: * Present on admission with BS 118. Fasting blood sugar today 109. A1c on admission was 5.5. BGMs controlled. Continue to monitor. - Hypertension, chronic: * Blood pressure controlled. Continue lisinopril and monitor closely. - GERD: * Continue Prilosec for GERD and GI protection. - Incontinence, chronic: - STIVEN: - Constipation, acute on chronic: * Continue daily bowel motivation. * Will give 1/2 bottle mag citrate today for bowel motivation per patient request. Anticipate improved bowel movement with increased in activity and return to solid diet. * 01/21/17 Overall abdomen is feeling better now that bowels have moved last evening. Will continue with Miralax BID, and Colace BID along with multiple PRNs. In light of anemia, did review past labs. HgB from 09/2016 was 13.6. Will check Iron, Ferritin labs. Will check Stool for occult blood. She tolerating soft diet and will advance diet to regular Continue with Pratts and Flexeril for pain and muscle spasms. Continue with PT/OT for ongoing therapy and improved function 1145- patient reevaluated following a phone call from nursing staff reporting that patient fell. Her left leg gave out while she was ambulating with assistance of the nurse. She fell striking her posterior head on the wall. No loss of consciousness. She is reevaluated while sitting up in her chair. She is alert and oriented. Does complain of some mild headache with a small posterior hematoma. No break in the skin. Denies having any cervical spine tenderness, however, patient does have chronic neck pain. No other injuries noted, neurovascular status intact. 01/23/17 Obtain US Doppler of LLE to rule out DVT as well as foot XR to r/o fracture Will add BRITTANY hose to assist with edema, She reports that the SCD's are uncomfortable for her. Must continue SCDs for postoperative DVT prophylaxis Blood pressure remained stable, continue on current regimen of lisinopril 10 milligrams daily. Continue with scheduled Colace and MiraLAX twice a day for ongoing bowel motivation Last hemoglobin on 02/17 was stable at 9.4. We will recheck a CBC tomorrow, 01/24 to follow anemia To better control her pain, we will change her Pratts 7.5mg from PRN to scheduled 2 tabs every 4 hours. Did discuss pain management plan with Dr Turner We will continue with PT and OT to improve her strength and stability. 01/24/17-Smooth Improving post laminectomy, adequate pain control. Continue therapies. Fracture of the left fourth proximal phalanx/toe identified. Weightbearing as tolerated, meghan tape. Patient aware that she'll need follow-up x-ray in 6-8 weeks. Ongoing constipation-Colace discontinued and switched to Senokot S2 tablets twice a day, continue MiraLAX. Milk of magnesia to be given today and if no results Dulcolax suppository. Hypertension well controlled on current regimen. Postoperative anemia present, hemoglobin stable since transfer. Knee strain with increased use left leg, symptomatic management. 01/25/17 Spoke with PCP Zayda Mazariegos APRN regarding chronic pain medication use and skilled nursing plan. Saw patient with Dr Turner. We will change Pratts to 10/325mg every 6 hours and Ultram 50-100 every 6 hours in between as needed. This will decrease amount of Tylenol she relieves and continue to given more frequent pain relief. Continue with Meghan tape to left 4th and 3rd toes for acute fractures. Will need to follow up in the outpatient setting in 6-8 weeks. Continue with Senna plus for ongoing bowel motivation Continue to work with PT/OT for ongoing strengthening 01/28/17 Given acute change in pain will continue with IV Dilaudid for breakthrough pain. Scheduled Pratts 10 every 6 hours with tramadol 50-100 milligrams every 6 hours in between. Continue with scheduled Flexeril 3 times a day for muscle spasms. Add Lidoderm patch to paraspinal lumbar back. She is also using a Lidoderm patch to the left knee. Did obtain a CBC and BMP this morning. Platelet count was found to be significantly elevated at 932. Suspect this is a reactive thrombocytosis postoperatively. Does not appear to be an acute infectious process going, as incision remains without redness or drainage, dressing dry and intact. WBC count remains normal, hemoglobin remained stable. Sodium is slightly down, suspect patient is mildly dehydrated. Will give her 500 ML bolus of IV fluids now over the next 2 hours Will also obtain a CRP Monitor blood pressure as this was elevated this morning, likely secondary to acute pain If pain and symptoms does not improve today. May need to consider MRI of the lumbar spine Continue with Senna plus for ongoing bowel motivation Continue to work with PT/OT for ongoing strengthening 1000- Patient re-evaluated at this time she is up in the wheelchair working with therapy. She reports that her pain has improved. Discussed current plan of care. At this time will hold off on further imaging at this time. Will need to discuss ongoing pain management further with 01/29/17 Overall Josi states that she is feeling better however wants to discuss pain medication regimen. Request to be on something stronger than Pratts and Ultram. Will discuss further with Dr Turner. At this time we will continue current pain regimen, which is Pratts 10/325 every 4 hours with tramadol as needed every 6 hours between dosing. Continue with Flexeril 3 times a day and Lidoderm patch. Did speak with hematology briefly regarding thrombocytosis. Likely a reactive response given that, platelet count on admission was normal. May also be affected by anemia. Given low iron level, will start IV iron today. Will start on ASA 81mg daily. Will recheck CBC tomorrow morning. She may need outpatient mythology evaluation if platelet count does not decrease. Will evaluate lumbar incision tomorrow as this is been 14 days. Surgery will likely be able to remove cuco. Case discussed with Dr David and Dr Turner 01/30/17 Overall, Giselle is doing well. Her pain appears to be well controlled on Pratts 10 every 4 hours with foraminal as needed between doses. We will continue on this regimen at time of discharge. Also continue with Flexeril 3 times a day as needed for muscle spasms and Neurontin for neuropathic pain. We did discuss in detail regarding her thrombocytosis and the likelihood this is a reactive response. Platelet count is trending down. Will have patient take oral iron supplementation twice a day. Will speak with her primary care provider Zayda MICHAEL at [facility] for close follow-up. Patient may require further hematology workup in the outpatient setting. Will also send patient on baby aspirin 81 milligrams daily. JOVITA COOPER APRN Jan 30, 2017 13:28
--- NOTE | 2017-01-30 14:07 | NUR ---
MADDY SPOKE AGAIN WITH PT, RE: RADHA PLAN. SHE SAID SHE WOULD LIKE ASSISTANCE WITH TRANSPORTATION AND SHOPPING. IT WAS DISCUSSED WITH PT THAT SHE COULD USE [employer] OR [facility], AND IT WAS EXPLAINED HOW SHE COULD SHOP ON-LINE AND [employer] THE [employer] OR ASK AND RECEIVE ASSISTANCE FROM STORE STAFF. SHE SAID THIS IS EXACTLY WHAT SHE NEEDS. THIS WORKER ALSO [facility]ED [facility]/PERSONAL CARE/CASE MANAGEMENT FOR 90 DAYS), AND SHE WAS INTERESTED IN THIS. THIS WORKER CALLED, SPOKE WITH MARYA. SHE SAID PT WOULD QUALIFY BUT THEIR MEDICAL LIAISON IS OUT UNTIL SATURDAY. MARYA ASKED THE THAT PT CALL ON SATURDAY. THIS WORKER RELAYED THIS TO PT; PROVIDED HANDOUT WITH CONTACT INFO FOR [facility]. PT THANKED THIS WORKER AND HAD NO FURTHER QUESTIONS/NEEDS. SHE SAID HER RIDE WILL BE HERE ABOUT 3:15 PM, AND CAN TAKE HER TO GET HER PRESCRIPTIONS FILLED AND THEN TAKE HER HOME.
--- NOTE | 2017-01-30 15:15 | NUR ---
Shift Summary Pt is resting on the side of the bed. She ambulates with stand by assist of 1, FWW, and gait belt; wears the LSO brace with transfers. Continent of bowel and bladder, able to manage her own clothing and cares. Ate well for meals, did not need assist with her tray, ambulates to the dining room. She was able to manage her own bath, upper and lower body. Getting dressed she was able to manage her top with no problems and her pants, but did need minimal assist with her BRITTANY hose. Terry were removed per order, patient tolerated well. Dressing was changed and new 4x4 placed with Medipore tape. She is excited to be dismissed today. IVL was removed at this time, when it was flushed there was no problems. Reported pain throughout the shift, received [place] 10 (1) at 0730 and 1221; also received Tramadol 100mg at 1513. When in bed the alarm is in use, likes to sit on the edge of the bed. Call light is within reach. Refuses to have SCDs on.
--- NOTE | 2017-01-30 15:27 | NUR ---
Discharge Pt was dismissed to home with friend via wheelchair escorted by staff. Discharge information provided to patient, which included teaching information, medication prescriptions, and patient health summary. She reported not having any questions at this time. Arm band removed, patient has all of her belongings that were brought in with her.
--- NOTE | 2017-01-31 10:34 | PDONTRACK ---
Right on Track Program Date of Discharge Jan 30, 2017 at 15:27 Scheduled Aspirin (Aspirin), 81 MG PO DAILY Calcium Carbonate (Calcium Carbonate), 500 MG PO PRN, (Reported) Docusate Sodium (Stool Softener), 100 MG PO BID, (Reported) Ferrous Sulfate (Ferrous Sulfate), 1 TAB PO BIDWM Fexofenadine HCl (Valeria Allergy), 180 MG PO DAILY, (Reported) Gabapentin (Neurontin), 300 MG PO TID Lidocaine (Lidoderm), 1 REMOVAL TOP 2100 Lisinopril (Lisinopril), 10 MG PO DAILY Omeprazole (Omeprazole), 20 MG PO DAILY, (Reported) Oxybutynin Chloride (Oxybutynin Chloride ER), 15 MG PO DAILY, (Reported) Polyethylene Glycol 3350 (Healthylax), 17 G PO BID Scheduled PRN Acetaminophen (Acetaminophen), 650 MG PO Q4H PRN for PAIN, (Reported) Bisacodyl (Bisacodyl), 5 MG PO DAILY PRN for CONSTIPATION, (Reported) Cyclobenzaprine HCl (Cyclobenzaprine HCl), 5 MG PO TID PRN for MUSCLE PAIN Hydrocodone/Acetaminophen ([place] 10-325 Tablet), 1 TAB PO Q4H PRN for PAIN Magnesium Hydroxide (Milk of Magnesia), 30 ML PO DAILY PRN for CONSTIPATION, ( Reported) Tramadol HCl (Ultram), 50-100 MG PO Q6H PRN for PAIN Discontinued Medications Bisacodyl (Bisacodyl), 10 MG RECTALLY DAILY PRN for CONSTIPATION, (Reported) Hydrocodone/Acetaminophen ([place] 7.5-325 Tablet), 1-2 TAB PO Q4H PRN for PAIN, ( Reported) Metoclopramide HCl (Metoclopramide HCl), 10 MG PO Q6HR PRN for NAUSEA &/OR VOMITING, (Reported) Ondansetron HCl (Ondansetron HCl), 4 MG PO Q6HR PRN for NAUSEA, (Reported) Date: Jan 31, 2017 Right on Track Program: 24 Hour Follow-Up Discharge Summary Received: No Care Plan Received: Yes Follow up: Follow Up Appt. Scheduled Education: Diagnosis Ed. Review Referrals: Case Management Total LACE Score: 11 Comments PHONE CALL: I spoke with Giselle on 01/31/17, the day after hospital discharge. She's frustrated b/c she can't drive herself to get to the store for food and to fill medication. She's not sure if she should be driving. She's also weak and doesn't think she will have the energy to take care of her ADLs, or even putting groceries away after coming back from the store. She's also worried about falling b/c her left leg is numb and she's constantly in pain. Home health will be coming in this afternoon. She doesn't have friends or family to help her, but might utilize public transportation to get to [employer] to get her Rx filled and get some basic groceries. She also knows she can call [employer] Whe[employer] if needed. She knows she will need to take frequent breaks, and states she'll figure out how to get to the store to get her Rx. She did not have any questions about discharge instructions or her home care plan. We planned a face to face visit for 02/06/17. Discussed w/pt and caregiver: Yes Recommendations for follow-up 1. Home Health 2. Will discuss barriers to getting food and Rx with [facility] 3. F/U with 4. Continue to follow through ROTP Problems: (1) S/P lumbar laminectomy Status: Acute Assessment & Plan: She was admitted to [facility], and underwent the following on 01/16/[address] Ceballos: a) L4 reexploration; Exploration of spinal fusion b) L3 Plascencia procedure (complete facetectomies and pars resection) c) L2 laminectomy d) explantation of hardware, and extension posterior lumbar spinal fusion from L3-S1 with autologous morcellated local bone and BMP impregnated infused sponges with extension of instrumentation. Stitches to come out 2 weeks post op. To Follow up With Dr. Ceballos in 6-8 weeks- will need Cervical xrays and Lumbar spine x-ray series. (2) Fracture of fourth toe, left, closed Status: Acute (3) Constipation by delayed colonic transit Onset Date: ~ 01/2017 Status: Acute (4) Anemia following surgery Status: Acute (5) HTN (hypertension) Status: Chronic (6) STIVEN (obstructive sleep apnea) Status: Chronic (7) Thrombocytosis Status: Acute LANIE ASHBY [employer] CONDUCTOR Jan 31, 2017 10:13
== END 2017-01-30 15:27 | disposition home health service (06) | DRG 92 ==
PROVIDERS: ADMIT Family Medicine; ATTEND Family Medicine
PROC: F07Z9FZ Gait Training/Functional Ambulation Treatment using Assistive, Adaptive, Supportive or Protective Equipment (ICD-10-PCS; principal; 2017-01-18)
PROC: F07M6ZZ Therapeutic Exercise Treatment of Musculoskeletal System - Whole Body (ICD-10-PCS; 2017-01-18)
PROC: F08Z4ZZ Home Management Treatment (ICD-10-PCS; 2017-01-18)
DX: G72.9 Myopathy, unspecified (principal); E87.1 Hypo-osmolality and hyponatremia; S92.512A Displaced fracture of proximal phalanx of left lesser toe(s), initial encounter for closed fracture; R73.9 Hyperglycemia, unspecified; G54.1 Lumbosacral plexus disorders; Z98.1 Arthrodesis status; D47.3 Essential (hemorrhagic) thrombocythemia; I10 Essential (primary) hypertension; K59.01 Slow transit constipation; R32 Unspecified urinary incontinence; F41.9 Anxiety disorder, unspecified; F32.9 Major depressive disorder, single episode, unspecified; G47.33 Obstructive sleep apnea (adult) (pediatric); G89.29 Other chronic pain; M54.2 Cervicalgia; K44.9 Diaphragmatic hernia without obstruction or gangrene; K21.9 Gastro-esophageal reflux disease without esophagitis; Z87.891 Personal history of nicotine dependence; M79.89 Other specified soft tissue disorders; W18.39XA Other fall on same level, initial encounter; Y93.01 Activity, walking, marching and hiking; Y92.239 Unspecified place in hospital as the place of occurrence of the external cause; Y99.8 Other external cause status
CPT/HCPCS: 36415; 80048; 81003; 82272; 82728; 82948; 83036; 83540; 83735; 84443; 85025; 86140; 87493; 94664; 94762

== ENCOUNTER → 2017-02-13 | Outpatient (CLI) | payer MEDICARE ==
[~2017-02-13] MED LIST changes: +ACET325T51 PO; +ASPI81TA2 PO; +BISA5TAB12 PO; +CALC1TAB16 PO; -CLON0.1T PO; -CYAN500L3 PO; +CYCL5TAB PO; -ESOM40CA54 PO; +FERR324T4 PO; +GABA300C PO; -GINS250C2 PO; -HYDR-4011 PO; +HYDR-4078 PO; +LIDO700A3 TOP; +LISI10TA7 PO; +MAGN400O4 PO; -MELO-267 PO; +OMEP20CA10 PO; +POLY17PO18 PO; -PRAM0.129 PO; +TRAM50TA53 PO; -VITA400C25 PO
--- NOTE | 2017-02-13 14:48 | DI ---
Indication: ITS.REASON: M25.562 ACUTE PAIN OF LEFT KNEE PROCEDURE: KNEE LEFT 2 VIEW: Encounter: Initial Comparison: None Findings: There is no acute fracture, dislocation or malalignment identified. Joint spaces are normal. Impression: No acute osseous abnormality. .
== END ==
LOC: IMA 14:29
PROVIDERS: ATTEND Registered Nurse
DX: M25.562 Pain in left knee (principal); Z91.81 History of falling

== ENCOUNTER 2017-03-06 00:04 | Emergency (ER) | payer MEDICARE ==
[~2017-03-06] VITALS: Ht 167.6 cm; Wt 73.0 kg
[2017-03-06 00:04] VITALS: Ht 167.6 cm; Wt 73.0 kg
--- OUTSIDE RECORDS SUMMARY | 2017-03-06 00:09 | XMS REPORT | Continuity of Care Document ---
Author Author Dana Cortez Address Unknown Phone Unavailable Care Team Providers [employer] Name Role Phone [employer] Unavailable Unavailable Problems Problem Status Onset Date Classification Date Reported Comments Source Chronic pain syndrome (disorder) Active Problem 2013 [facility] Degeneration of lumbar intervertebral disc (disorder) Active Problem 06/30/2014 [facility] Hypertensive disorder, systemic arterial (disorder) Active Problem 06/30/2014 [facility] Fibromyositis (disorder) Active Problem 06/30/2014 [facility] History of - gastrointestinal disease (context-dependent category) Active Problem 06/30/2014 [facility] History of - hormone replacement (HRT) (context-dependent category) Active Problem 06/30/2014 [facility] Hiatal hernia (disorder) Active Problem 06/30/2014 [facility] Mixed hyperlipidemia (disorder) Active Problem 2013 [facility] Hypersomnia with sleep apnea (disorder) Active Problem [facility] 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 [facility] Persistent insomnia (disorder) Active Problem 06/30/2014 [facility] Restless legs (disorder) Active Problem 06/30/2014 [facility] Reactive depression (situational) (finding) Active Problem 06/30/2014 [facility] Medications Medication Details Route Status Patient Instructions Ordering Provider Order Date Source Valeria PO Active [facility] Evergreen 325 mg-10 mg oral tablet tab, PO, BID Active [facility] MS Contin 30 mg oral tablet, extended release =30 mg, 1 tab, PO, Q12H, 0 Refill(s) Active [facility] Vitamin D3 oral tablet International_Unit, tab, PO, Daily Active [facility] Slo-Niacin 500 mg oral tablet, extended release =500 mg, 1 tab, PO, QHS, # 30 tab Active [facility] clonazepam 0.5 mg oral tablet =0.5 mg, 1 tab, PO, BID , # 60 tab, 5 Refill(s) Active [facility] omeprazole 40 mg oral enteric coated capsule =40 mg, 1 cap, PO, Daily, # 30 cap Active [facility] meloxicam 15 mg oral tablet =15 mg, 1 tab, PO, Daily, # 30 tab Active [facility] Cymbalta 60 mg oral enteric coated capsule =60 mg, 1 cap, PO, Daily, (do not crush or chew), # 30 cap
</br>(do not crush or chew) Active [facility] Covaryx HS tab, PO, Daily Active [facility] Flexeril 10 mg oral tablet mg, tab, PO, Daily Active [facility] Mirapex 0.125 mg oral tablet =0.125 mg, 1 tab, PO, QHS , # 30 tab, 11 Refill(s), Pharmacy [facility], tab Active [facility] Allergies, Adverse Reactions, Alerts Immunizations Results Vital Signs Vital Sign Value Date Comments Source Cuff Size Adult Large Cuff
</br>(06/29/2014 11:09: 00) <sup> </sup> 06/29/2014 [facility] BP Site Right Arm
</br>(06/29/2014 11:09:00) <sup > </sup> 06/29/2014 [facility] Resp. Rate 16 BRMIN 2013 [facility] Heart Rate 64 bpm 06/29/2014 [facility] Systolic BP <content ID='[id number]'>134</content >/<content ID='[id number]'>80</content> mmHg 06/29 [facility] Encounters Procedures Plan of Care Social History Assessment and Plan Family History Value Date Source Advance Directives Order Name Results Value Date Source
--- OUTSIDE RECORDS SUMMARY | 2017-03-06 00:10 | XMS REPORT | Continuity of Care Document ---
Author Author [facility] Organization [facility] Address Unknown Phone Unavailable Support Name Relationship Address Phone ZAYDA MATAMOROS APRN Caregiver [address] [place] [address] Unavailable BERNARDA READ MD Caregiver [address] [place] [phone] Unavailable BERNARDA READ MD Caregiver [address] [place] [address] Unavailable MIKE ZIMMERMAN Next Of Kin Unknown [phone] Insurance Providers Guarantor Giselle Harding Address [address] [place] [address] Email [email or web address] Payer Medicare Policy Number [id number] Subscriber's Name Giselle Harding Relationship 16 Self Advance Directives Directive Response Recorded Date/Time Ordered Resuscitation Status Full Code 01/18/17 5:25pm Resuscitation Documents on File No 01/18/17 4:35pm Problems Active Problems Medical Problem Onset Date Status Anemia following surgery Unknown Acute Constipation by delayed colonic transit ~01/2017 Acute Depression with anxiety Unknown Chronic Fracture of fourth toe, left, closed Unknown Acute GERD (gastroesophageal reflux disease) Unknown Chronic H/O drug dependence Unknown Resolved HTN (hypertension) Unknown Chronic Hiatal hernia Unknown Chronic Hyperglycemia Unknown Resolved Hyponatremia Unknown Incontinence Unknown Myopathy Unknown STIVEN (obstructive sleep apnea) Unknown Chronic Post-operative nausea and vomiting Unknown Resolved Seasonal allergies Unknown Chronic Swelling of lower extremity Unknown Acute Thrombocytosis Unknown Acute Urinary incontinence Unknown Chronic Vomiting and diarrhea Unknown Acute Surgical Problem Onset Date Status S/P lumbar laminectomy Unknown Acute Past Problems Medical Problem Onset Date Blood pressure elevated Unknown Delusions Unknown Headache Unknown Leg weakness, bilateral Unknown Paranoia Unknown Spinal stenosis of lumbar region with neurogenic claudication Unknown Suicidal ideation Unknown Medications Current Home Medications Medication Dose Units Route Directions Days Qty Instructions Start Date Acetaminophen 325 Mg Tablet 650 Mg Oral Every 4 Hours as needed for Pain 01/18/17 Aspirin 81 Mg Tab.chew 81 Mg Oral Daily 30 Days 01/30/17 Bisacodyl 5 Mg Tablet.dr 5 Mg Oral Daily as needed for Constipation 01/18/17 Calcium Carbonate 500 Mg Tablet 500 Mg Oral As Needed 01/18/17 Cyclobenzaprine Hcl 5 Mg Tablet 5 Mg Oral Three Times A Day as needed for Muscle Pain 30 Days 90 Tablet 01/30/17 Docusate Sodium (Stool Softener) 100 Mg Capsule 100 Mg Oral Twice A Day 10/02/16 Ferrous Sulfate 324 Mg Tablet.dr 1 Tab Oral Twice Daily With Meals 60 Days 120 Tablet BEST WITH FOOD. 01/30/17 Fexofenadine Hcl (Valeria Allergy) 180 Mg Tablet 180 Mg Oral Daily 09/06/16 Gabapentin (Neurontin) 300 Mg Capsule 300 Mg Oral Three Times A Day 30 Days 90 Capsule 01/30/17 Hydrocodone/Acetaminophen (Carolina 10-325 Tablet) 10-325 Tablet 1 Tab Oral Every 4 Hours as needed for Pain 30 Days 180 Tablet 01/30/17 Lidocaine (Lidoderm) 1 Each Adh..patch 1 Removal Topically 2099 30 Days 01/30/17 Lisinopril 10 Mg Tablet 10 Mg Oral Daily 30 Days 30 Tablet 01/30/17 Magnesium Hydroxide (Milk Of Magnesia) 400 Mg/5 Ml Oral.susp 30 Ml Oral Daily as needed for Constipation 01/18/17 Omeprazole 20 Mg Capsule.dr 20 Mg Oral Daily 01/18/17 Oxybutynin Chloride (Oxybutynin Chloride Er) 15 Mg Tab.er.24 15 Mg Oral Daily 09/06/16 Polyethylene Glycol 3350 (Healthylax) 17 Gm Powd.pack 17 G Oral Twice A Day 30 Days 01/30/17 Tramadol Hcl (Ultram) 50 Mg Tablet 50-100 Mg Oral Every 6 Hours as needed for Pain 30 Days 60 Tablet 01/30/17 Past Home Medications Medication Directions Ordered Status Bisacodyl 10 Mg Supp.rect, 10 Mg Rectally Daily as needed for Constipation Discontinued Hydrocodone/Acetaminophen (Carolina 7.5-325 Tablet) 7.5-325 Tablet, 1-2 Tab Oral Every 4 Hours as needed for Pain 01/18/17 Discontinued Metoclopramide Hcl 10 Mg Tablet, 10 Mg Oral Q6h/0300,0900,1500,2100 as needed for Nausea &/Or Vomiting 01/18/17 Discontinued Ondansetron Hcl 4 Mg Tablet, 4 Mg Oral Q6h/0300,0900,1500,2100 as needed for Nausea 03/31/17 Discontinued Social History Social History Problem Response Recorded Date/Time Onset Date Status Reason for Hospitalization S/P Laminectomy, 01/30/2017 11:57am Not Applicable Not Applicable Hx Substance Use No 10/02/2016 3:58pm Not Applicable Not Applicable Hx Alcohol Use Y OCCASIONAL 10/02/2016 3:58pm Not Applicable Not Applicable Tobacco Usage none 10/22/2015 7:28am Not Applicable Not Applicable Hospital Discharge Instructions Instructions: Care Instructions: Reason for Hospitalization: S/P Laminectomy, I was in the hospital because (patient own words): laminectomy in my lower back Discharge Diet: regular diet Discharge Activity: Activity as tolerated Follow Up Appointments: Zayda Matamoros APRN on 02/05/17 at 12:45 am for Hosp. follow-up. [facility] [address] [place] [address] [place] [id number] Maykel Ceballos on 02/28/17 at 2:10 pm for Post-Op follow-up. [facility] [address] [place] [address]. . Pending Lab / Results: No Pending Lab Patient Instructions: Continue with current pain regimen including Carolina, tramadol and Lidoderm patch. Take aspirin daily Take iron supplementation to help with anemia Follow-up with primary care on 02/05. You will need a CBC and BMP at that time. May need further outpatinet follow up with computer applications engineer Wound/Incision Care: cuco removed on 01/30 Pain Management/Treatment: Carolina 10 milligrams tabs every 4 hours, tramadol 1-2 tabs every 6 as needed Expected Signs/Symptoms: Continued improvement in strength with reduction in pain Notify Physician If: Fevers, chills, severe pain in back, change in symptoms including numbness in lower extremities During Business Hours:: Please call the physician's office After Business Hours:: Please call [phone] and have the vacuum furnace operator page the physician. Condition at time of discharge: Fair Plan of Care Discharge Date 01/30/17 3:27pm Disposition 01 DISCHARGED HOME, SELF-CARE Prescriptions See Medication Section Care Plan and Goals See Discharge Instructions Section Functional Status Query Response Date Recorded Mobility Status Ambulatory w/assist January 30, 2017 3:10pm Assistive Devices Front Wheeled Walker January 30, 2017 3:10pm Activity Limitations Weakness Pain January 30, 2017 3:10pm Feeding Ability Independent January 30, 2017 3:10pm Toileting Ability Independent January 30, 2017 3:10pm Grooming Ability Independent January 30, 2017 3:10pm Dressing Ability Independent January 30, 2017 3:10pm Driving Ability Dependent January 30, 2017 3:10pm Housework Ability Dependent January 30, 2017 3:10pm Meal Preparation Ability Dependent January 30, 2017 3:10pm Stair Climbing Ability Dependent January 30, 2017 3:10pm Ability to complete ADL's impeded by Impaired Mobility January 30, 2017 3:10pm Cognitive/Perceptual Impairments None January 30, 2017 3:10pm Preferred Method of Learning Reading January 30, 2017 3:10pm Allergies, Adverse Reactions, Alerts No known allergies. Immunizations Query Response on File Recorded Date/Time Hx Influenza Vaccination Y jun 2016 01/18/17 4:37pm Hx Pneumococcal Vaccination No 01/18/17 4:37pm Hx Influenza Vaccination Y jun 2016 01/18/17 4:37pm Influenza Vaccine Hx 201501/18/17 4:48pm Vital Signs Acute Vital Signs Vital Response Date/Time Temperature (Fahrenheit) 95.8 deg F (96.8 - 99.1) 01/30/2017 7:20am Temperature (Calculated Celsius) 35.32953 degrees C (36.0 - 37.3) 01/30/2017 7:20am Pulse Rate (adult) 90 bpm (60 - 100) 01/30/2017 7:30am Respiratory Rate 16 breaths/min (10 - 20) 01/30/2017 7:30am O2 Sat by Pulse Oximetry 95 % (90 - 100) 01/30/2017 7:20am Oxygen Delivery Method Room Air 01/20/2017 3:00am Oxygen Delivery Method Room Air 01/30/2017 7:20am Blood Pressure 158/83 mm Hg 01/30/2017 7:20am Blood Pressure Source Automatic Cuff 01/30/2017 7:20am Height (Feet) 5 feet 01/30/2017 1:33pm Height (Inches) 6.00 inches 01/30/2017 1:33pm Weight (Kilograms) 76.900 kg 01/25/2017 9:59pm Body Mass Index (BMI) 28.2 01/18/2017 3:45pm Results Laboratory Results Test Name Result Units Flags Reference Collection Date/Time Result Date/ Time Comments White Blood Count 8.4 T/MM3 4.5-11.0 01/30/2017 8:1501/30/2017 8: 33am Red Blood Count 3.86 M/MM3 L 4.00-5.20 01/30/2017 8:1501/30/2017 8: 33am Hemoglobin 11.6 GM/DL L 12-16 01/30/2017 8:1501/30/2017 8:33am Hematocrit 34.9 % L 36-46 01/30/2017 8:1501/30/2017 8:33am Mean Corpuscular Volume 90.4 UM3 80-100 01/30/2017 8:01/30/2017 8: 33am Mean Corpuscular Hemoglobin 30.1 UUG 26-34 01/30/2017 8:152016 8:33am Mean Corpuscular Hemoglobin Concent 33.2 GM/DL 31-37 01/30/2017 8:01/30/2017 8:33am RDW Standard Deviation 40.4 FL 36.9-50.2 01/30/2017 8:1501/30/2017 8 :33am Platelet Count 939 T/MM3 *H 130-400 01/30/2017 8:01/30/2017 8:33am Mean Platelet Volume 7.6 UM3 L 9.4-12.4 01/30/2017 8:01/30/2017 8: 33am Neutrophils (%) (Auto) 64.7 % 33-66 01/30/2017 8:01/30/2017 8: 33am Lymphocytes (%) (Auto) 27.7 % 23-45 01/30/2017 8:1501/30/2017 8: 33am Monocytes (%) (Auto) 5.6 % 0-9.0 01/30/2017 8:01/30/2017 8:33am Eosinophils (%) (Auto) 1.3 % 0-4 01/30/2017 8:1501/30/2017 8:33am Basophils (%) (Auto) 0.2 % 0-2 01/30/2017 8:1501/30/2017 8:33am Immature Granulocyte % (Auto) 0.5 % 0.0-0.5 01/30/2017 8:152016 8:33am Absolute Neutrophils (auto) 5.4 T/MM3 1.8-7.7 01/30/2017 8:152016 8:33am Absolute Lymphocytes (auto) 2.3 T/MM3 1-4.8 01/30/2017 8:152016 8:33am Absolute Monocytes (auto) 0.5 T/MM3 0-0.8 01/30/2017 8:1501/30/2017 8:33am Absolute Eosinophils (auto) 0.1 T/MM3 0-0.5 01/30/2017 8:152016 8:33am Absolute Basophils (auto) 0.0 T/MM3 0-0.2 01/30/2017 8:1501/30/2017 8:33am Absolute Immature Granulocyte (auto 0.04 T/MM3 H 0.00-0.03 01/30/2017 8: 1501/30/2017 8:33am Icterus Index < 2 0-7 01/29/2017 8:1801/29/2017 8:55am Chemistry Specimen Hemolysis < 15 0-25 01/29/2017 8:1801/29/2017 8 :55am 0-25: Specimen Exhibited No Hemolysis. Turbidity < 20 0-20 01/29/2017 8:1801/29/2017 8:55am Sodium Level 134 MEQ/L 134-144 01/29/2017 8:1801/29/2017 8:55am Potassium Level 3.6 MEQ/L 3.6-5 01/29/2017 8:1801/29/2017 8:55am Chloride Level 96 MEQ/L L 98-107 01/29/2017 8:1801/29/2017 8:55am Carbon Dioxide Level 26 MEQ/L 22-30 01/29/2017 8:1801/29/2017 8: 55am Anion Gap 12 MEQ/L 5-15 01/29/2017 8:1801/29/2017 8:55am Blood Urea Nitrogen 7.0 MG/DL 7-17 01/29/2017 8:1801/29/2017 8:55am Creatinine 0.6 MG/DL L 0.7-1.2 01/29/2017 8:18am 01/29/2017 8:55am BUN/Creatinine Ratio 12 RATIO 6-26 01/29/2017 8:18am 01/29/2017 8:55am Glomerular Filtration Rate Calc 101 01/29/2017 8:18am 01/29/2017 8: 55am Glucose Level 118 MG/DL H 65-110 01/29/2017 8:18am 01/29/2017 8:55am Calculated Osmolality 257 MOSM/KG L 261-280 01/29/2017 8:18am 2016 8:55am Calcium Level 9.3 MG/DL 8.4-10.2 01/29/2017 8:18am 01/29/2017 8:55am C-Reactive Protein 17.4 MG/L H 0-9 01/28/2017 8:05am 01/28/2017 10:13am Magnesium Level 1.9 MG/DL 1.6-2.3 01/20/2017 5:23am 01/20/2017 5:49am Iron Level 19 UG/DL L 37-170 01/21/2017 5:00am 01/23/2017 2:20am Ferritin 71.4 NG/ML 11-264 01/21/2017 5:00am 01/23/2017 2:55am Thyroid Stimulating Hormone (TSH) 1.00 MIU/L 0.47-4.68 01/20/2017 5: 23am 01/20/2017 6:20am Hemoglobin A1c 5.5 % L 6.1-7.9 01/20/2017 5:23am 01/20/2017 6:18am < 6.0 NON-DIABETIC RANGE 6.1-7.9 [facility] TARGET RANGE >8.0 ACTION SUGGESTED Stool Occult Blood NEGATIVE 01/21/2017 7:00pm 01/21/2017 8:09pm Stool C. difficile Toxin B Gene PCR NEGATIVE NEGATIVE 01/27/2017 2: 22am 01/27/2017 3:38am If Toxin A is clinically indicated, treat accordingly. Urine Color YELLOW YELLOW 01/19/2017 3:15pm 01/19/2017 3:22pm Urine Turbidity CLEAR CLEAR 01/19/2017 3:15pm 01/19/2017 3:22pm Urine Specific Bement <=1.005 L 1.015-1.025 01/19/2017 3:15pm 2016 3:22pm Urine pH 6.5 5.0-8.0 01/19/2017 3:15pm 01/19/2017 3:22pm Urine Leukocyte Esterase NEGATIVE NEGATIVE 01/19/2017 3:15pm 2016 3:22pm Urine Nitrite NEGATIVE NEGATIVE 01/19/2017 3:15pm 01/19/2017 3:22pm Urine Protein NEGATIVE NEGATIVE 01/19/2017 3:15pm 01/19/2017 3:22pm Urine Glucose (UA) NEGATIVE NEGATIVE 01/19/2017 3:15pm 01/19/2017 3: 22pm Urine Ketones NEGATIVE NEGATIVE 01/19/2017 3:15pm 01/19/2017 3:22pm Urine Urobilinogen 0.2 EU/DL NORMAL 01/19/2017 3:15pm 01/19/2017 3: 22pm Urine Bilirubin NEGATIVE NEGATIVE 01/19/2017 3:15pm 01/19/2017 3: 22pm Urine Blood NEGATIVE NEGATIVE 01/19/2017 3:15pm 01/19/2017 3:22pm Urinalysis Comment MICROSCOPIC NOT IND. 01/19/2017 3:15pm 2016 3:22pm Glucometer 142 mg/dL H 65-110 01/21/2017 9:27am 01/21/2017 9:30am Name: GISELLE HARDING Unit #: [id number] : 1955 Sex: F Admit Date: 01/18/17 Loc / Svc: IRU Discharge Date: DIAGNOSTIC IMAGING REPORT Report #: [id number] [facility] IN[facility] [place] Indication: ITS.REASON: left lower extremity swelling PROCEDURE: US VENOUS DUPLEX, LOWER EXT LT: Encounter: Initial Comparison: December 04, 2016 Technique: Color Doppler duplex and grayscale sonographic imaging of the left lower extremity was performed. Findings: There is no evidence for acute deep venous thrombosis in the left thigh. Specifically, serial graded compression was performed from the inguinal ligament to the popliteal bifurcation, on the left thigh, demonstrating appropriate compressibility of the deep venous system. In addition, color and pulsed Doppler demonstrate appropriate spontaneous flow, variation with respiration, and augmentation with calf compression. At the ankle, normal flow is identified in the posterior tibial veins; these vessels are also normal in caliber. Impression: No evidence of acute DVT in the left lower limb. . Procedures Procedure Status Date Provider(s) Extremity study Completed 12/04/16 Chest x-ray 2vw frontal&latl Completed 12/20/16 Encounters Encounter Location Arrival/Admit Date Discharge/Depart Date Attending Provider Discharged Inpatient [facility] 01/18/17 2:50pm 01/30/17 3:27pm BERNARDA READ MD Registered Clinic [facility] 12/20/16 4:16pm ZAYDA MATAMOROS APRN Registered [facility] 12/04/16 12:22pm ZAYDA MATAMOROS APRN
--- OUTSIDE RECORDS SUMMARY | 2017-03-06 00:10 | XMS REPORT | Continuity of Care Document ---
Author Author [facility] Organization [facility] Address Unknown Phone Unavailable Allergies Active Description Code Type Severity Reaction Onset Reported/Identified Relationship to Patient Clinical Status Yes LACTOSE 31141 3 INDIGESTION 12/24/2016 Medications Medication Packaging Start [...] ONDANSETRON 4MG TABLET TAB 01/16/2017 01/16/2018 PO [id number] METOCLOPRAMIDE 10MG TABLET TAB 01/16/2017 01/16/2018 PO [id number] HYDROcodone/ACETAMINOPHEN 7.5-325 MG TABLET TAB 01/16/2017 PO U3RHRRF diphenhydrAMINE 25MG CAPSULE CAP 01/16/2017 01/16/2018 PO Q6HPRN diphenhydrAMINE 50MG/1ML INJ VL 01/16/2017 01/16/2018 IVP Q6HPRN BISACODYL 5MG TABLET TAB 01/16/2017 01/16/2018 PO PRN ONDANSETRON 4MG/2ML INJ VL 01/16/2017 01/16/2018 IVP [id number] MORPHINE 30 MG / 30 ML MONOTYPER SYRINGE SYR 01/16/2017 01/18/2017 IV PRN METOCLOPRAMIDE 10MG/2ML INJ VL 01/16/2017 01/16/2018 IVP [id number] SODIUM CHLORIDE 0.9% 10ML FLUSH SYRINGE SYR 01/16/20172017 IVP PRN SODIUM CHLORIDE 0.9% 5ML FLUSH SYRINGE SYR 01/16/20172017 IVP PRN MAGNESIUM HYDROXIDE 2400MG/30ML SUSP EA 01/16/2017 01/16/2018 PO PRN BISACODYL 10MG SUPPOS. SUP 01/16/2017 01/16/2018 TN* PRN METHOCARBAMOL 750MG TABLET TAB 01/16/2017 01/16/2018 PO Q5VOGEK ACETAMINOPHEN 325MG TABLET TAB 01/16/2017 01/16/2018 PO [...] Attending Type Code Diagnosis Diagnosed By 11/28/2016 MELLION, B GARY DF M43.16 Spondylolisthesis, lumbar region 11/28/2016 MELLION, B GARY DF 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 11/28/2016 MELLION, B GARY DF M48.06 Spinal stenosis, lumbar region 11/28/2016 MELLION, B GARY DF Z98.1 Arthrodesis status 01/18/2017 MELLION, B GARY DF E66.3 Overweight 01/18/2017 MELLION, B GARY DF G47.33 Obstructive sleep apnea (adult) (pediatr 01/18/2017 MELLION, B GARY DF I10 Essential (primary) hypertension 01/18/2017 MELLION, B GARY DF K21.9 Gastro-esophageal reflux disease without 01/18/2017 MELLION, B GARY DF M43.16 Spondylolisthesis, lumbar region 01/18/2017 MELLION, B GARY DF M48.06 Spinal stenosis, lumbar region 01/18/2017 MELLION, B GARY DF M51.36 Other intervertebral disc degeneration, 01/18/2017 MELLION, B GARY DF M54.16 Radiculopathy, lumbar region 01/18/2017 MELLION, B GARY DF Z68.27 Body mass index (BMI) 27.0-27.9, adult 01/18/2017 MELLION, B GARY DF Z72.0 Tobacco use Procedures Code Description Performed By Performed On [id number] Fluoroscopy of Spinal Cord using Low Osm MELLION, B GARY 11/28/2016 [id number] Fusion of 2 or more Lumbar Vertebral Octavia MELLION, B GARY 01/16/2017 Results Test Result Range 883-9 - 01/16/17 10:35 ABO group [Type] in Blood A 02163-8 - 01/16/17 10:35 Rh [Type] in Blood POSITIVE 890-4 - 01/16/17 10:35 Blood group antibody screen [Presence] in Serum or Plasma NEGATIVE Hemoglobin [Mass/volume] in Blood - 01/17/17 05:10 Hemoglobin [Mass/volume] in Blood 11.2 g/dl 11.4 - 15.2 Hematocrit [Volume Fraction] of Blood by Automated count - 01/17/17 05:10 Hematocrit [Volume Fraction] of Blood by Automated count 30.7 % 34.0 - 46.0 2345-7 01/17/17 05:10 Glucose [Mass/volume] in Serum or [...] count 32.0 % 34.0 - 46.0 2345-7 01/18/17 05:00 Glucose [Mass/volume] in Serum or [...] Status Pt. Type Provider Facility Loc./Unit Complaint [id number] 06/16/2012 00:00:00 2011 00:00:00 CAN Lizzette Christopher MD, [facility] W.PRA
[2017-03-06] MEDS ORDERED: HYDROMORPHONE 2mg/ml INJECTION IM ONE (00:15)
--- OUTSIDE RECORDS SUMMARY | 2017-03-06 00:24 | XMS REPORT | Continuity of Care Document ---
Author Author [facility] Address Unknown Phone Unavailable Care Team Providers Care Supervisor Welding Equipment Repairer Name Role Phone [employer] Unavailable Unavailable Problems Problem Status Onset Date Classification Date Reported Comments Source Chronic pain syndrome (disorder) Active Problem 2013 [facility] Degeneration of lumbar intervertebral disc (disorder) Active Problem 06/30/2014 [facility] Hypertensive disorder, systemic arterial (disorder) Active Problem 06/30/2014 [facility] Fibromyositis (disorder) Active Problem 06/30/2014 [facility] History of - gastrointestinal disease (context-dependent category) Active Problem 06/30/2014 [facility] History of - hormone replacement (HRT) (context-dependent category) Active Problem 06/30/2014 [facility] Hiatal hernia (disorder) Active Problem 06/30/2014 [facility] Mixed hyperlipidemia (disorder) Active Problem 2013 [facility] Hypersomnia with sleep apnea (disorder) Active Problem [facility] 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 [facility] Persistent insomnia (disorder) Active Problem 06/30/2014 [facility] Restless legs (disorder) Active Problem 06/30/2014 [facility] Reactive depression (situational) (finding) Active Problem 06/30/2014 [facility] Medications Medication Details Route Status Patient Instructions Ordering Provider Order Date Source Valeria PO Active [facility] [place] 325 mg-10 mg oral tablet tab, PO, BID Active [facility] MS Contin 30 mg oral tablet, extended release =30 mg, 1 tab, PO, Q12H, 0 Refill(s) Active [facility] Vitamin D3 oral tablet International_Unit, tab, PO, Daily Active [facility] Slo-Niacin 500 mg oral tablet, extended release =500 mg, 1 tab, PO, QHS, # 30 tab Active [facility] clonazepam 0.5 mg oral tablet =0.5 mg, 1 tab, PO, BID , # 60 tab, 5 Refill(s) Active [facility] omeprazole 40 mg oral enteric coated capsule =40 mg, 1 cap, PO, Daily, # 30 cap Active [facility] meloxicam 15 mg oral tablet =15 mg, 1 tab, PO, Daily, # 30 tab Active [facility] Cymbalta 60 mg oral enteric coated capsule =60 mg, 1 cap, PO, Daily, (do not crush or chew), # 30 cap
</br>(do not crush or chew) Active [facility] Covaryx HS tab, PO, Daily Active [facility] Flexeril 10 mg oral tablet mg, tab, PO, Daily Active [facility] Mirapex 0.125 mg oral tablet =0.125 mg, 1 tab, PO, QHS , # 30 tab, 11 Refill(s), Pharmacy [facility], tab Active [facility] Allergies, Adverse Reactions, Alerts Immunizations Results Vital Signs Vital Sign Value Date Comments Source Cuff Size Adult Large Cuff
</br>(06/29/2014 11:09: 00) <sup> </sup> 06/29/2014 [facility] BP Site Right Arm
</br>(06/29/2014 11:09:00) <sup > </sup> 06/29/2014 [facility] Resp. Rate 16 BRMIN 2013 [facility] Heart Rate 64 bpm 06/29/2014 [facility] Systolic BP <content ID='[id number]'>134</content >/<content ID='[id number]'>80</content> mmHg 06/29 [facility] Encounters Procedures Plan of Care Social History Assessment and Plan Family History Value Date Source Advance Directives Order Name Results Value Date Source
--- OUTSIDE RECORDS SUMMARY | 2017-03-06 00:26 | XMS REPORT | Continuity of Care Document ---
Author Author [facility] Organization [facility] Address Unknown Phone Unavailable Allergies Active Description Code Type Severity Reaction Onset Reported/Identified Relationship to Patient Clinical Status Yes LACTOSE 71082 3 INDIGESTION 12/24/2016 Medications Medication Packaging Start [...] ONDANSETRON 4MG TABLET TAB 01/16/2017 01/16/2018 PO [id number] METOCLOPRAMIDE 10MG TABLET TAB 01/16/2017 01/16/2018 PO E8CCOPHA HYDROcodone/ACETAMINOPHEN 7.5-325 MG TABLET TAB 01/16/2017 PO T2XUOES diphenhydrAMINE 25MG CAPSULE CAP 01/16/2017 01/16/2018 PO Q6HPRN diphenhydrAMINE 50MG/1ML INJ VL 01/16/2017 01/16/2018 IVP Q6HPRN BISACODYL 5MG TABLET TAB 01/16/2017 01/16/2018 PO PRN ONDANSETRON 4MG/2ML INJ VL 01/16/2017 01/16/2018 IVP [id number] MORPHINE 30 MG / 30 ML [place] TEACHER SYRINGE SYR 01/16/2017 01/18/2017 IV PRN METOCLOPRAMIDE 10MG/2ML INJ VL 01/16/2017 01/16/2018 IVP [id number] SODIUM CHLORIDE 0.9% 10ML FLUSH SYRINGE SYR 01/16/20172017 IVP PRN SODIUM CHLORIDE 0.9% 5ML FLUSH SYRINGE SYR 01/16/20172017 IVP PRN MAGNESIUM HYDROXIDE 2400MG/30ML SUSP EA 01/16/2017 01/16/2018 PO PRN BISACODYL 10MG SUPPOS. SUP 01/16/2017 01/16/2018 CO* PRN METHOCARBAMOL 750MG TABLET TAB 01/16/2017 01/16/2018 PO D8FZHOU ACETAMINOPHEN 325MG TABLET TAB 01/16/2017 01/16/2018 PO [...] Spinal stenosis, lumbar region 11/28/2016 MELLION, B AGRY DF Z98.1 Arthrodesis status 01/18/2017 MELLION, B [...] Procedures Code Description Performed By Performed On [id number] Fluoroscopy of Spinal Cord using Low Osm MELLION, B GARY 11/28/2016 [id number] Fusion of 2 or more Lumbar Vertebral Octavia MELLION, B GARY 01/16/2017 Results Test Result Range 883-9 - 01/16/17 10:35 ABO group [Type] in Blood A 97700-1 - 01/16/17 10:35 Rh [Type] in Blood [...] Status Pt. Type Provider Facility Loc./Unit Complaint [id number] 06/16/2012 00:00:00 2011 00:00:00 CAN Lizzette Christopher MD, [facility] W.PRA
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
--- NOTE | 2017-03-06 01:04 | NUR ---
PLAN OF CARE PT RESTING, DR. CROSS UPDATED INFORMATION TO CT FOOT. PT STATES PAIN MEDICATIONS ARE HELPING, PAIN 4/10 AT THIS TIME, ICE CONTINUES/ ELEVATION OF LEFT FOOT CONTINUES.
--- NOTE | 2017-03-06 02:47 | NUR ---
Splint Splint placed by Dr. Ugarte, distal neuros intact before and after application. Pt states warmth of the splint is helping the discomfort.
[2017-03-06 03:00] VITALS: BP 145/77; PULSE 71; RESP 16; TEMP 98; O2SAT 99
--- NOTE | 2017-03-06 08:08 | DI ---
Indication: ITS.REASON: questionable medial cuneiform fracture PROCEDURE: CT LOWER EXTREMITY LT W/O CONT: Encounter: Initial Comparison: Foot radiographs from the same date Technique: Axial noncontrast CT imaging through the left was performed with coronal and sagittal two-dimensional reformats and three-dimensional surface shaded volume rendered imaging. Automated Exposure Control and Iterative Reconstruction dose reducing techniques were utilized. Findings: There is a nondisplaced fracture of the anterior process of the calcaneus extending into the sinus tarsi and calcaneocuboid joint. There is also a minimally displaced chip fracture of the superior cuboid bone. Minimally displaced fractures of the medial and middle cuneiforms. Nondisplaced intra-articular fracture of the base of the great toe proximal phalanx extending into the metatarsophalangeal joint. Nondisplaced intra-articular fractures of the base of the second and third toe proximal phalanges extending into the MTP joints. Bones are demineralized. Nondisplaced fracture of the navicular bone. Nondisplaced fractures of the second and fourth metatarsals extending into the tarsometatarsal joints. Impression: Multiple foot fractures as above. There is a preliminary report by [employer]. .
--- NOTE | 2017-03-06 08:10 | DI ---
Indication: ITS.REASON: fall, left foot injury PROCEDURE: FOOT LEFT 3 VIEWS: Encounter: Initial Comparison: CT left foot from the same date Findings: Oblique minimally displaced fracture of the medial cuneiform bone. Minimally displaced fractures of the great, second and third toe proximal phalanges extending into the MTP joints. Mildly displaced fracture of the cuboid. Diffuse bony demineralization. Nondisplaced calcaneal fracture is better seen on CT. Minimally displaced fracture of the navicular bone also seen. Impression: Multiple left foot fractures. .
== END 2017-03-06 03:00 | disposition short-term general hospital (02) ==
LOC: ED 00:04
DX: S92.025A Nondisplaced fracture of anterior process of left calcaneus, initial encounter for closed fracture (principal); S92.242A Displaced fracture of medial cuneiform of left foot, initial encounter for closed fracture; S92.412A Displaced fracture of proximal phalanx of left great toe, initial encounter for closed fracture; S92.512A Displaced fracture of proximal phalanx of left lesser toe(s), initial encounter for closed fracture; S92.215A Nondisplaced fracture of cuboid bone of left foot, initial encounter for closed fracture; S92.352A Displaced fracture of fifth metatarsal bone, left foot, initial encounter for closed fracture; S92.255A Nondisplaced fracture of navicular [scaphoid] of left foot, initial encounter for closed fracture; W18.39XA Other fall on same level, initial encounter; Y93.89 Activity, other specified; Y92.008 Other place in unspecified non-institutional (private) residence as the place of occurrence of the external cause; Y99.8 Other external cause status
CPT/HCPCS: 29515; 73630; 73700; 96372; 99285; J1170